=== PATIENT | male | born 1990 | race Native Hawaiian/Other Pacific Islander ===

== ENCOUNTER 2016-08-26 14:06 | Emergency (ER) | payer SELFPAY ==
[~2016-08-26] VITALS: Ht 185.4 cm; Wt 164.7 kg
[~2016-08-26 14:06] MED LIST: GLC500 PO; LEVO150T9 PO; ONDA4TAB10 SL
[2016-08-26 14:15] VITALS: TEMP 37; Ht 185.4 cm; Wt 164.7 kg
[2016-08-26] MEDS ORDERED: LEVO175T3 PO (14:26)
[2016-08-26] MEDS ORDERED: ONDANSETRON INJ 2 MG/ML 2 ML VIAL IV STA (14:35)
[2016-08-26] MEDS ORDERED: SODIUM CHLORIDE 0.9% 1000ML 1,000 ML IV STA (14:35)
[2016-08-26] MEDS ORDERED: MoRPHine SULFATE 4 MG/ML 1 ML CARP\\VIAL IV PRN (14:45)
[2016-08-26 15:24] LABS: BASO % 0.3 %; BASO ABS # 0.02 K/uL (0-0.2); COMPLETE YES; EOS % 2.5 %; HEMATOCRIT 37.7 % (42-52); IG% 0.3 %; LYMPH % 22.3 %; LYMPH ABS # 1.43 K/uL (1.2-3.4); MEAN CELL VOLUME 83.2 fL (80-100); MEAN CORPUSCULAR HEMOGLOBIN 27.8 pg (25-34); MEAN CORPUSCULAR HGB CONC 33.4 g/dl (32-36); MONO % 4.1 %; NEUT % 70.5 %; PLATELET COUNT 179 K/uL (130-400); RED BLOOD COUNT 4.53 M/uL (4.7-6.1); WHITE BLOOD COUNT 6.41 K/uL (4.8-10.8)
[2016-08-26 15:41] LABS: ALT/SGPT 55 U/L (12-78); BLOOD UREA NITROGEN 8 mg/dl (7-18); BUN/CREATININE RATIO 11.4 (10-20); CALCIUM 8.8 mg/dl (8.5-10.1); CARBON DIOXIDE 28 mmol/L (21-32); CHLORIDE 102 mmol/L (98-107); CREATININE 0.66 mg/dl (0.60-1.40); GLUCOSE 151 mg/dl (70-99); POTASSIUM 3.1 mmol/L (3.5-5.1); SODIUM 141 mmol/L (136-145)
[2016-08-26 15:44] LABS: ALKALINE PHOSPHATASE 116 U/L (45-117); AST/SGOT 40 U/L (15-37)
[2016-08-26] MEDS ORDERED: OPTIRAY 320 IV PRN (15:45)
[2016-08-26 15:59] LABS: URINE APPEARANCE CLEAR (CLEAR); URINE BILIRUBIN NEG (NEG); URINE COLOR YELLOW; URINE NITRITE NEG (NEG); URINE SPECIFIC GRAVITY 1.021 (1.000-1.030); UROBILINOGEN NEG (NEG)
[2016-08-26 16:07] LABS: MANUAL MICROSCOPIC REQUIRED? NO; REVIEW REQ? NO
--- NOTE | 2016-08-26 17:57 | DIAGNOSTIC IMAGING REPORT ---
ABDOMEN AND PELVIS CT WITH IV AND ORAL CONTRAST CT DOSE: 2347.76 mGy.cm HISTORY: Generalized abdominal pain. TECHNIQUE: Multiaxial CT images of the abdomen and pelvis were performed following the use of intravenous and oral contrast. COMPARISON STUDY: Abdominal ultrasound 02/26/2006. FINDINGS: Mild dependent changes seen within the lung bases posteriorly. No pneumoperitoneum. No pneumatosis. No fractures within the visualized osseous structures. Minimal pericardial fluid anteriorly. The liver, gallbladder, adrenal glands, pancreas, and kidneys are unremarkable. Normal bladder. No hydronephrosis. The spleen is enlarged measuring 18 cm in length. Questionable minimal fasting at the pancreatic tail appears be due to the normal surrounding vessels rather than inflammatory change. No retroperitoneal lymphadenopathy. Subcentimeter mesenteric lymph nodes do not meet CT criteria for pathologic involvement. Prominent left lymph node measures a normal fatty hilum is also likely benign. No bowel wall thickening or obstruction. Normal appendix. IMPRESSION: 1. No bowel wall thickening or obstruction. 2. Splenomegaly measuring 18 cm in length. 3. Normal appendix. Electronically signed by: Gopal Sullivan M.D. 08/26/2016 5:55 PM Dictated Date/Time: 08/26/2016 5:45 PM
[2016-08-26] MEDS ORDERED: ONDA4TAB46 PO (18:06)
[2016-08-26 18:18] VITALS: BP 125/77; PULSE 97; O2SAT 94
--- NOTE | 2016-08-26 18:38 | EMERGENCY ROOM VISIT NOTE ---
ED Visit Note First contact with patient: 14:20 Chief Complaint: Abdominal pain, vomiting and diarrhea. History of Present Illness: Mr. Brown is a 25 year-old white male who ambulates into the ED complaining of epigastric and right lower quadrant abdominal painassociated with nausea, vomiting and diarrhea.. Historically patient reports acute gastroenteritis last year. Patient reports ongoing epigastric and left lower quadrant abdominal pain that started mildly of quadrant abdominal pain that started 8 days ago. Since that time his symptoms have been constant but has waxed and waned in intensity. He describes his abdominal pain as a sharp sensation. He currently rates his discomfort 4/10. His pain is nonradiating. He has not identified any aggravating or alleviating factors related to the pain. He reports he has been using ibuprofen but no relief of his discomfort. Associated with his discomfort he reports he has been nauseated and has been vomiting a couple times a day for the last few days and he has been having back and leg cramps at night and multiple episodes of watery diarrhea; the last 24 hours he reports he' s had 2 episodes of diarrhea. Additionally he reports intermittently he feels like he has fevers but has not checked; he reports feeling hot and then chills but no diaphoresis. Patient denies skin eruptions, skin color changes, upper respiratory tract symptoms, shortness of breath, chest pain, constipation, rectal bleeding, black/ tarry stools, urinary symptoms, hematuria, back/flank pain, close contacts with similar symptoms, recent antibiotic use and recent travel outside the [place]. Review of Systems: As noted above in history of present illness. All body systems were reviewed and found to be negative as noted above. Past Medical History:as previously noted, diabetes, hypothyroidism. Current Medications: Metformin, levothyroxine. Allergies to Medications:patient denies. Social History:patient is currently employed; he feels safe in his home environment; he denies tobacco and alcohol use. Physical Examination: Vital Signs: Date Time Temp Pulse Resp B/P Pulse Ox O2 Delivery O2 Flow Rate FiO2 08/26/16 18:18 97 18 125/77 94 08/26/16 17:32 94 16 134/76 96 08/26/16 16:15 94 16 126/76 96 08/26/16 14:15 37.0 105 19 161/90 96 Room Air GENERAL: 25-year-old male in mild distress due to pain, nontoxic-appearing, afebrile and hemodynamically stable. NEUROLOGICAL: Awake, alert and oriented to person, place and time. Answering questions appropriately and following commands. Normal gait. Good hand eye coordination. SKIN: Warm, dry and pink. No soft tissue eruptions or trauma noted. HEENT: Atraumatic and normocephalic. PERRLA. Sclera white and conjunctiva pink. Oral cavity moist and pink. Pharynx is nonerythematous or edematous. Speech normal. No lymphadenopathy. Trachea midline. No jugular venous distention. BACK: No tenderness over the bony spine or palpable pain/spasm in the paraspinous musculature. No CVA tenderness. THORAX: Lungs sounds are clear to auscultation and equal bilaterally with symmetrical chest wall. No wheezing, rales or rhonchi. No crepitus, tenderness , subcutaneous air or deformities noted. HEART: Regular rate and rhythm. No gallops, rubs or murmurs are appreciated. ABDOMEN: Morbidly obese and soft with mild tenderness in the epigastrium and left lower quadrant. Decreased bowel sounds in all quadrants. No guarding, rigidity or organomegaly. EXTREMITIES: Moves all extremities well on command and with purpose. All distal neurovascular statuses are intact and equal bilaterally. ED Course: Patient is assessed as noted above. Laboratory Testing: Test 08/26/16 15:05 Range/Units White Blood Count 6.41 4.8-10.8 K/uL Red Blood Count 4.53 4.7-6.1 M/uL Hemoglobin 12.6 14.0-18.0 g/dL Hematocrit 37.7 42-52 % Mean Corpuscular Volume 83.2 80-100 fL Mean Corpuscular Hemoglobin 27.8 25-34 pg Mean Corpuscular Hemoglobin Concent 33.4 32-36 g/dl Platelet Count 179 130-400 K/uL Mean Platelet Volume 11.0 7.4-10.4 fL Neutrophils (%) (Auto) 70.5 % Lymphocytes (%) (Auto) 22.3 % Monocytes (%) (Auto) 4.1 % Eosinophils (%) (Auto) 2.5 % Basophils (%) (Auto) 0.3 % Neutrophils # (Auto) 4.52 1.4-6.5 K/uL Lymphocytes # (Auto) 1.43 1.2-3.4 K/uL Monocytes # (Auto) 0.26 0.11-0.59 K/uL Eosinophils # (Auto) 0.16 0-0.5 K/uL Basophils # (Auto) 0.02 0-0.2 K/uL RDW Standard Deviation 46.8 36.4-46.3 fL RDW Coefficient of Variation 15.3 11.5-14.5 % Immature Granulocyte % (Auto) 0.3 % Immature Granulocyte # (Auto) 0.02 0.00-0.02 K/uL Urine Color YELLOW Urine Appearance CLEAR CLEAR Urine pH 6.0 4.5-7.5 Urine Specific [place] 1.021 1.000-1.030 Urine Protein NEG NEG Urine Glucose (UA) NEG NEG Urine Ketones NEG NEG Urine Occult Blood NEG NEG Urine Nitrite NEG NEG Urine Bilirubin NEG NEG Urine Urobilinogen NEG NEG Urine Leukocyte Esterase NEG NEG Sodium Level 141 136-145 mmol/L Potassium Level 3.1 3.5-5.1 mmol/L Chloride Level 102 98-107 mmol/L Carbon Dioxide Level 28 21-32 mmol/L Anion Gap 11.0 3-11 mmol/L Blood Urea Nitrogen 8 7-18 mg/dl Creatinine 0.66 0.60-1.40 mg/dl Est Creatinine Clear Calc Drug Dose 273.0 ml/min Estimated GFR () > 150.0 Estimated GFR (Non- 133.4 BUN/Creatinine Ratio 11.4 10-20 Random Glucose 151 70-99 mg/dl Calcium Level 8.8 8.5-10.1 mg/dl Total Bilirubin 0.4 0.2-1 mg/dl Direct Bilirubin 0.1 0-0.2 mg/dl Aspartate Amino Transf (AST/SGOT) 40 15-37 U/L Alanine Aminotransferase (ALT/SGPT) 55 12-78 U/L Alkaline Phosphatase 116 45-117 U/L Total Protein 7.6 6.4-8.2 gm/dl Albumin 3.4 3.4-5.0 gm/dl Lipase 158 73-393 U/L Contrast abdominal/pelvic CT: Was reviewed by myself and read by the radiologist shows no bowel wall thickening or signs of obstruction, normal- appearing appendix, no pneumoperitoneum, no pneumatosis, normal-appearing liver , gallbladder, adrenal glands, pancreas, kidneys and kidneys, enlarged spleen, no retroperitoneal lymphadenopathy. Patient was hydrated with normal saline and received 4 mg of morphine IV for pain and 4 mg of Zofran IV for nausea. Patient was unable to provide a stool sample for study. Patient was reassessed multiple times during his stay in the emergency department. Patient's case was reviewed with Dr. Hummel; we agreed on diagnostic approach, treatment, disposition and plan. Patient was educated about tonight's findings and instructed on his treatment plan; he verbalizes understanding and agreement with this plan. Clinical Impression: Acute gastroenteritis. Decision-Making: Initially my differential diagnosis I considered gastroenteritis, colitis, C. difficile, viral diarrhea, bowel obstruction and other causes. Disposition: Patient discharged home in stable condition; prior to departure he was reassessed and subjectively reported that he was pain and symptom-free. Plan: Patient was encouraged alternate ibuprofen and acetaminophen as needed for pain every 3 hours. Patient was prescribed Zofran 4 mg every 6 hours as needed for nausea/vomiting. Patient was encouraged to use [id number] Imodium for diarrhea; he was instructed to follow the packaging directions. Patient was encouraged use a bland diet and increase clear fluids. Patient was encouraged to follow-up with his primary care provider for recheck in 3-5 days. Patient was encouraged return to the ED for worsening/uncontrolled pain, return of fevers, uncontrolled vomiting/diarrhea, bloody vomitus/diarrhea or any new/ concerning symptoms.
== END 2016-08-26 18:19 | disposition home or self-care (01) ==
LOC: C.EDB 14:07
DX: K52.9 Noninfective gastroenteritis and colitis, unspecified (principal)

== ENCOUNTER 2016-10-24 20:05 | Emergency (ER) | payer OTHER ==
[~2016-10-24] VITALS: Ht 185.4 cm; Wt 164.3 kg
[~2016-10-24 20:05] MED LIST changes: -LEVO150T9 PO; +LEVO175T3 PO; -ONDA4TAB10 SL; +ONDA4TAB46 PO
[2016-10-24 20:12] VITALS: TEMP 37; Ht 185.4 cm; Wt 164.3 kg
--- NOTE | 2016-10-24 21:36 | DIAGNOSTIC IMAGING REPORT ---
LEFT ANKLE MIN 3 VIEWS ROUTINE CLINICAL HISTORY: left ankle pain and swelling COMPARISON: None. DISCUSSION: The bones and joint spaces appear intact. There is no evidence of fracture, dislocation or bony disease. Mild generalized soft tissue edema. Small heel spur. IMPRESSION: Soft tissue edema. No acute bony abnormality. Small heel spur. Electronically signed by: Rex Johnson M.D. 10/24/2016 9:35 PM Dictated Date/Time: 10/24/2016 9:34 PM
--- NOTE | 2016-10-24 22:54 | DIAGNOSTIC IMAGING REPORT ---
Venous Doppler left leg LEFT VENOUS DOPP LOWER EXT UNILAT CLINICAL HISTORY: left ankle swelling ?2 weeks pain. Edema. TECHNIQUE: Venous Doppler COMPARISON STUDY: None FINDINGS: Normal study IMPRESSION: Normal study Electronically signed by: Rex Johnson M.D. 10/24/2016 10:52 PM Dictated Date/Time: 10/24/2016 10:52 PM
[2016-10-24 23:07] VITALS: BP 180/90; PULSE 88; O2SAT 97
--- NOTE | 2016-10-24 23:09 | EMERGENCY ROOM VISIT NOTE ---
ED Visit Note First contact with patient: 20:17 CHIEF COMPLAINT: Left ankle swelling 2 weeks HISTORY OF PRESENT ILLNESS: Patient is a morbidly obese 25-year-old male who presents emergency department for evaluation of left ankle pain and swelling 2 weeks. He states that his fianc noted that his ankle looked swollen. The patient reports that he develops lower extremity swelling particularly after he works long shifts at a [email or web address]. He states that occasionally the left ankle becomes a little bit more swollen and painful. He notes increased symptoms with walking. He occasionally notes some tightness in the left calf. He denies any trauma or injury to the left leg that would explain the onset of his symptoms. He denies any chest pain, palpitations or shortness of breath. He denies any history of gout, does not note any other real significant joint pains. He rates his discomfort a 3/10. He denies experiencing any symptoms in the right leg presently. He denies unusual activity which may have strained a muscle recently. There has not been a long period of immobilization or long car or plane ride recently. There is no history of blood clots in the veins of the legs. REVIEW OF SYSTEMS: Review of systems as per HPI. All other systems reviewed were negative. 10 systems reviewed. PMH: Electronic medical records are reviewed and summarized as above/below. See Problem List. SOCIAL HISTORY: Patient lives at home. Employed. Does not smoke. PHYSICAL EXAM: Vital Signs: Reviewed Nurse's notes. CONSTITUTIONAL: Patient is an obese 25-year-old male who is awake and alert and in no acute distress. HEART: Regular rate and rhythm without murmurs, ectopy, gallops, or rubs. LUNGS: Clear to auscultation and breath sounds equal, no wheezes, rales, or rhonchi. NEUROLOGICAL: Alert oriented, coherent. PERRL, EOMs full, gait normal. EXTREMITIES: Examination of the lower extremities bilaterally show trace pitting edema in the ankles and the anterior shins bilaterally. There is no erythema, increased warmth or signs of infection. There are no palpable cords. Calves are soft and nontender bilaterally. No cyanosis noted. No palpable knee or ankle joint discomfort bilaterally. Pulses equal bilaterally. Sensation light touch is intact. There is no lymphangitic streaking. EMERGENCY DEPARTMENT COURSE: X-rays of the left ankle noted slight soft tissue swelling with no evidence for acute bony abnormality. Ultrasound of the left lower extremity did not demonstrate any DVT. The patient has had nonspecific left ankle pain and swelling over the last couple of weeks. Differential diagnoses entertained include sprain, gout, septic joint, DVT, superficial thrombophlebitis, tendinitis, dependent edema, among others. The patient was reassured. He is encouraged to follow-up with his primary care provider if his symptoms persist. LEFT ANKLE MIN 3 VIEWS ROUTINE CLINICAL HISTORY: left ankle pain and swelling COMPARISON: None. DISCUSSION: The bones and joint spaces appear intact. There is no evidence of fracture, dislocation or bony disease. Mild generalized soft tissue edema. Small heel spur. IMPRESSION: Soft tissue edema. No acute bony abnormality. Small heel spur. Venous Doppler left leg LEFT VENOUS DOPP LOWER EXT UNILAT CLINICAL HISTORY: left ankle swelling ?2 weeks pain. Edema. TECHNIQUE: Venous Doppler COMPARISON STUDY: None FINDINGS: Normal study IMPRESSION: Normal study Problem List Medical Problems: (1) Acute bronchitis Status: Resolved (2) Acute gastroenteritis Status: Resolved (3) Acute gastroenteritis Status: Resolved (4) Anxiety Status: Chronic (5) Depression Status: Chronic (6) Diabetes mellitus, new onset Status: Resolved (7) Diarrhea Status: Resolved (8) Elevated transaminase level Status: Resolved (9) Gastroenteritis Status: Resolved (10) Hypertension Status: Resolved (11) Hypothyroidism Status: Chronic (12) IBS (irritable bowel syndrome) Status: Chronic (13) Low back pain Status: Chronic (14) Morbid Obesity Status: Chronic (15) Nausea Status: Resolved (16) Nausea vomiting and diarrhea Status: Resolved (17) Sleep apnea Status: Chronic (18) Unspecified sleep apnea Status: Resolved (19) Upper respiratory infection Status: Resolved (20) Viral URI Status: Resolved (21) Vomiting Status: Resolved Current/Historical Medications Scheduled Metformin HCl (Metformin HCl), 500 MG PO BID Allergies Coded Allergies: No Known Allergies (Unverified , 10/24/16) Vital Signs Date Time Temp Pulse Resp B/P Pulse Ox O2 Delivery O2 Flow Rate FiO2 10/24/16 23:07 88 18 180/90 97 Room Air 10/24/16 20:12 37.0 99 20 191/98 97 Room Air Departure Information Impression Primary Impression: Left ankle pain Additional Impression: Lower extremity edema Referrals James Moseley M.D. ([facility]) (PCP) Patient Instructions [facility] Additional Instructions Ibuprofen(Motrin, Advil) may be used for fever or pain. Use 600mg every six hours as needed. Take with food. Avoid using more than 2400mg in a 24 hour period. Do not use 2400mg per day for more than three consecutive days without physician direction. Prolonged inappropriate use can lead to stomach upset or ulcers. This medication can be taken if you need to drive, work, or perform activities which may be dangerous when taking narcotic pain medication. (AND/OR) Acetaminophen(Tylenol) may be used for fever or pain. Use 1000mg every six hours as needed. Avoid using more than 3000mg in a 24 hour period. This medication can be taken if you need to drive, work, or perform activities which may be dangerous when taking narcotic pain medication. Ice compresses to the ankle as needed for pain and swelling. Rest and elevate the legs when the ankle becomes painful and legs become swollen. Continue current medications. Return to the ER immediately for any numbness, tingling, severe pain, extreme swelling in the extremity or as needed. Follow up with your family physician if symptoms persist. Problem Qualifiers
== END 2016-10-24 23:30 | disposition home or self-care (01) ==
LOC: C.EDB 20:05 → C.EDD 23:30
DX: M25.572 Pain in left ankle and joints of left foot (principal); R60.0 Localized edema; F41.9 Anxiety disorder, unspecified; F32.9 Major depressive disorder, single episode, unspecified; E03.9 Hypothyroidism, unspecified; K58.9 Irritable bowel syndrome, unspecified; E66.01 Morbid (severe) obesity due to excess calories; G47.30 Sleep apnea, unspecified; Z68.42 Body mass index [BMI] 45.0-49.9, adult

== ENCOUNTER 2017-02-12 18:12 | Emergency (ER) | payer OTHER ==
[~2017-02-12] VITALS: Ht 185.4 cm; Wt 160.5 kg
[~2017-02-12 18:12] MED LIST changes: -LEVO175T3 PO; -ONDA4TAB46 PO
[2017-02-12 18:20] VITALS: Ht 185.4 cm; Wt 160.5 kg
[2017-02-12] MEDS ORDERED: IBUPROFEN 800 MG TAB PO STA (19:16)
[2017-02-12] MEDS ORDERED: IBUP-1050 PO (19:19)
--- NOTE | 2017-02-12 19:31 | DIAGNOSTIC IMAGING REPORT ---
RIGHT KNEE 2 VIEWS CLINICAL HISTORY: Right knee pain. FINDINGS: AP and crosstable lateral views of the right knee are obtained. No prior studies are available for comparison at the time of dictation. The skeletal structures are well mineralized. No fracture is seen. The joint spaces of the knee are preserved. There is no joint effusion. The overlying soft tissues are within normal limits. IMPRESSION: No acute bony abnormality is seen in the right knee. Electronically signed by: Joselito Hunt M.D. 02/12/2017 7:30 PM Dictated Date/Time: 02/12/2017 7:29 PM
--- NOTE | 2017-02-12 20:01 | EMERGENCY ROOM VISIT NOTE ---
ED Visit Note First contact with patient: 18:49 CHIEF COMPLAINT: knee pain HISTORY OF PRESENT ILLNESS: This 26-year-old male patient presents to the emergency department after sustaining an injury to the right knee 2-3 days ago. Patient states he has been doing a lot of moving furniture, thinks he may have twisted the knee but is unsure. He states he has pain with certain twisting motions on the inside of his knee and with bending or sustained walking. The patient denies any other injuries besides their knee. The patient denies swelling or bruising. They rate the pain as aching and 4/10. The patient states they are able to walk on it. No numbness or tingling. No previous injuries to this knee. No ankle, foot or hip pain. REVIEW OF SYSTEMS: A 6 system review of systems was completed with positives and pertinent negatives listed in the HPI. ALLERGIES: See chart MEDICATIONS: See chart PMH: See chart SOCIAL HISTORY: See chart PHYSICAL EXAM: Vital Signs: Reviewed Nurse's notes, vital signs stable. GENERAL : Pleasant and cooperative, no acute distress, but appears in pain, well- developed, well-nourished. MENTAL STATUS: Alert, oriented to person place and time, and cooperative. MUSCULOSKELETAL: The right knee is not swollen. There is no ecchymosis. There is no discernible joint effusion present. The patient is tender along the medial knee and with stress of the medial collateral ligament. There is no joint line tenderness. The patella does not subluxate. Range of motion is normal. Strength of the quads and hamstrings is 5/5. Mckayla 's and Anterior Drawer tests are negative. The foot and toes are warm and well- perfused. Dorsalis pedis pulse 2+. Sensation to pain and light touch is intact. Capillary refill less than 2 seconds. IMAGING: RIGHT KNEE 2 VIEWS CLINICAL HISTORY: Right knee pain. FINDINGS: AP and crosstable lateral views of the right knee are obtained. No prior studies are available for comparison at the time of dictation. The skeletal structures are well mineralized. No fracture is seen. The joint spaces of the knee are preserved. There is no joint effusion. The overlying soft tissues are within normal limits. IMPRESSION: No acute bony abnormality is seen in the right knee. EMERGENCY DEPARTMENT COURSE: I examined the patient. X-rays of the right knee were reviewed by myself and read by radiology and reveal no acute bony abnormalities. The patient was placed in a knee immobilizer under my direction and the position was satisfactory. The patient was instructed on the use of crutches. The patient was discharged home in good condition. Problem List Medical Problems: (1) Acute bronchitis Status: Resolved (2) Acute gastroenteritis Status: Resolved (3) Acute gastroenteritis Status: Resolved (4) Anxiety Status: Chronic (5) Depression Status: Chronic (6) Diabetes mellitus, new onset Status: Resolved (7) Diarrhea Status: Resolved (8) Elevated transaminase level Status: Resolved (9) Gastroenteritis Status: Resolved (10) Hypertension Status: Resolved (11) Hypothyroidism Status: Chronic (12) IBS (irritable bowel syndrome) Status: Chronic (13) Low back pain Status: Chronic (14) Morbid Obesity Status: Chronic (15) Nausea Status: Resolved (16) Nausea vomiting and diarrhea Status: Resolved (17) Sleep apnea Status: Chronic (18) Unspecified sleep apnea Status: Resolved (19) Upper respiratory infection Status: Resolved (20) Viral URI Status: Resolved (21) Vomiting Status: Resolved Current/Historical Medications Scheduled Ibuprofen (Advil), 400 MG PO prn ud Allergies Coded Allergies: No Known Allergies (Unverified , 10/24/16) Vital Signs Date Time Temp Pulse Resp B/P (MAP) Pulse Ox O2 Delivery O2 Flow Rate FiO2 02/12/17 20:14 36.7 102 20 141/78 95 02/12/17 20:13 102 20 141/78 95 Room Air 02/12/17 18:20 36.7 112 20 153/87 95 Room Air Medications Administered Medications (Trade) Dose Ordered Sig/Giovanny Route Start Time Stop Time Status Last Admin Dose Admin Ibuprofen (Motrin Tab) 800 mg NOW STAT PO 02/12/17 19:16 02/12/17 19:18 DC 02/12/17 19:52 800 MG Departure Information Impression Primary Impression: Right knee sprain Dispostion Home / Self-Care Condition GOOD Referrals James Moseley M.D.([facility]) (PCP) Karthik Ken D.O. Patient Instructions ED Sprain Knee, [facility] Additional Instructions Ice and elevate the knee for swelling and pain. Wear knee immobilizer when up and about. Use crutches - minimal weight on foot. Ibuprofen 600 mg and Tylenol 1000 mg every 6-8 hrs for pain. Follow-up with Orthopedics for further evaluation and treatment - call for appointment in the next week. Work Instructions Return To Work: after follow-up Additional Work Instructions: No work until cleared by orthopedics Problem Qualifiers Primary Impression: Right knee sprain Encounter type: initial encounter Involved ligament of knee: medial collateral ligament Qualified Codes: S83.411A - Sprain of medial collateral ligament of right knee, initial encounter
[2017-02-12 20:14] VITALS: BP 141/78; PULSE 102; TEMP 36.7; O2SAT 95
== END 2017-02-12 20:19 | disposition home or self-care (01) ==
LOC: C.EDB 18:13 → C.EDD 20:19
DX: S83.91XA Sprain of unspecified site of right knee, initial encounter (principal); X58.XXXA Exposure to other specified factors, initial encounter; I10 Essential (primary) hypertension; E11.9 Type 2 diabetes mellitus without complications; E03.9 Hypothyroidism, unspecified; F41.9 Anxiety disorder, unspecified; F32.9 Major depressive disorder, single episode, unspecified; K58.9 Irritable bowel syndrome, unspecified; G47.30 Sleep apnea, unspecified; Z86.19 Personal history of other infectious and parasitic diseases

== ENCOUNTER → 2017-03-29 | Outpatient (CLI) | payer OTHER ==
[~2017-03-29] MED LIST changes: -GLC500 PO; +IBUP-1050 PO
--- NOTE | 2017-03-29 08:28 | DIAGNOSTIC IMAGING REPORT ---
RIGHT LOWER EXT JOINT WITHOUT CLINICAL HISTORY: 26 years-old Male presents with medial right-sided knee pain for approximately one month. No reported injury. COMPARISON: Right knee radiographs 02/12/2017. TECHNIQUE: Multiplanar, multisequence MRI of the right knee was performed without intravenous contrast. FINDINGS: MENISCI: There is an obliquely oriented area of linear increased T2 signal involving the posterior junction and body medial meniscus, nicely seen on image 19 of the sagittal PD series and image 18 of the coronal PD series compatible with horizontal undersurface tear without displaced fragment or para meniscal cyst identified. There is fraying and blunting of the free edge lateral meniscal body, best seen on image 21 of the coronal PD series suggesting tear without displaced fragment or para meniscal cyst identified. CRUCIATE LIGAMENTS: The anterior and posterior cruciate ligaments are normal in signal, morphology and course. COLLATERAL LIGAMENTS: The popliteus tendon, biceps femoris tendon, fibular collateral ligament and iliotibial band are intact. There is thickening of the proximal and mid fibers MCL with trace superficial and deep edema as well as minimal intrasubstance increased linear T2 signal, nicely seen on images 17 and 18 of the coronal PD series. No high-grade or complete tear identified. EXTENSOR MECHANISM: There is redundancy of the patellar tendon with thickened proximal fibers demonstrating mildly increased T2 signal suggesting mild tendinosis without definite tear identified. Quadriceps tendon is intact. The medial and lateral patellar retinacula are intact. KNEE JOINT: There is no large joint effusion. There is no focal cartilage or osteochondral abnormality. The tibial tuberosity to trochlear groove interval is elongated, 2.2 cm with lateral tilt of the patella within the trochlear groove. BONE MARROW: The bone marrow signal is age appropriate. No fracture, marrow edema, or marrow replacing process. Scattered bone islands are noted within the distal femur. SOFT TISSUES: The periarticular soft tissues are within normal limits with trace Bautista's cyst. IMPRESSION: 1. Horizontal undersurface tear involves the posterior junction and body medial meniscus. 2. Fraying and blunting of the free edge lateral meniscal body suggests additional meniscal tear. 3. Grade 2 injury of the MCL. 4. Elongation of the tibial tuberosity to trochlear groove interval with lateral tilt of the patella within the trochlear groove suggests patellar tracking abnormality. Correlate with clinical presentation and patient history. The above report was generated using voice recognition software. It may contain grammatical, syntax or spelling errors. Electronically signed by: Dav Alexandre M.D. 03/29/2017 8:27 AM Dictated Date/Time: 03/29/2017 8:16 AM
== END | disposition home or self-care (01) ==
LOC: C.MRI 07:27
PROVIDERS: ATTEND Orthopaedic Surgery
DX: S83.241A Other tear of medial meniscus, current injury, right knee, initial encounter (principal); S83.411A Sprain of medial collateral ligament of right knee, initial encounter; X58.XXXA Exposure to other specified factors, initial encounter

== ENCOUNTER 2017-09-24 08:29 | Emergency (ER) | payer OTHER ==
[~2017-09-24] VITALS: Ht 185.4 cm; Wt 157.5 kg
[2017-09-24 08:39] VITALS: TEMP 36.7; Ht 185.4 cm; Wt 157.5 kg
[2017-09-24] MEDS ORDERED: NORT10CA PO (09:35)
[2017-09-24] MEDS ORDERED: MAGN400T6 PO (09:35)
[2017-09-24] MEDS ORDERED: RIBO1TAB4 PO (09:35)
[2017-09-24 10:01] VITALS: BP 137/83; PULSE 72; O2SAT 97
--- NOTE | 2017-09-24 10:20 | DIAGNOSTIC IMAGING REPORT ---
L-SPINE MIN 4 VIEWS ROUTINE HISTORY: 26 years-old Male LBP x 2d acute low back pain for 2 days COMPARISON: CT abdomen and pelvis 08/26/2016 TECHNIQUE: 5 views of the lumbar spine FINDINGS: There are 5 nonrib-bearing lumbar type vertebral segments present. There is no acute fracture, subluxation, significant degenerative changes, spondylolysis or spondylolisthesis. Imaged soft tissues are unremarkable. IMPRESSION: 1. No acute fracture or subluxation. 2. No significant degenerative changes. The above report was generated using voice recognition software. It may contain grammatical, syntax or spelling errors. Electronically signed by: Dav Alexandre M.D. 09/24/2017 10:18 AM Dictated Date/Time: 09/24/2017 10:15 AM
--- NOTE | 2017-09-24 11:39 | EMERGENCY ROOM VISIT NOTE ---
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 The patient was assisting a resident who was walking when the resident fell. The patient did not notice any significant or abrupt onset of pain. He reports that the back has generally been stiff and tight since then, and rates his discomfort a 5 out of 10. The patient has not taken any analgesics, or applied ice or heat to the back. The pain does not radiate into the upper back, buttocks or legs. He denies bladder or bowel incontinence, saddle anesthesias or lower extremity weakness. Review of Systems 10 system review was performed and was negative except for pertinent positives and negatives as indicated in history of present illness Past Medical/Surgical History Medical Problems: (1) Acute bronchitis (2) Acute gastroenteritis (3) Acute gastroenteritis (4) Anxiety (5) Depression (6) Diabetes mellitus, new onset (7) Diarrhea (8) Elevated transaminase level (9) Gastroenteritis (10) Hypertension (11) Hypothyroidism (12) IBS (irritable bowel syndrome) (13) Low back pain (14) Morbid Obesity (15) Nausea (16) Nausea vomiting and diarrhea (17) Sleep apnea (18) Unspecified sleep apnea (19) Upper respiratory infection (20) Viral URI (21) Vomiting Family History Hypertension Social History Smoking Status: Former Smoker Alcohol Use: none Drug Use: none Marital Status: single Housing Status: lives with family Occupation Status: employed Current/Historical Medications Scheduled Magnesium Oxide (Mag-Ox), 400 MG PO HS Nortriptyline Hcl (Pamelor), 2 CAP PO HS Riboflavin (Riboflavin), 400 MG PO HS Physical Exam Vital Signs Date Time Temp Pulse Resp B/P (MAP) Pulse Ox O2 Delivery O2 Flow Rate FiO2 09/24/17 10:01 72 18 137/83 97 Room Air 09/24/17 08:39 36.7 102 20 144/87 96 Room Air Physical Exam CONSTITUTIONAL: Healthy and well nourished. Alert and oriented X 3 with positive affect. Patient does not appear in any acute distress. HEENT: Normocephalic, atraumatic. Pupils equal, round and reactive. NECK: Full active range of motion without discomfort. RESPIRATORY: Clear to auscultation bilaterally with no wheezing, crackles, rhonchi or stridor. CARDIOVASCULAR: Regular rate and rhythm with no murmurs, rubs or gallops. GASTROINTESTINAL: Bowel sounds present in all quadrants. Soft and nontender to palpation. MUSCULOSKELETAL: Examination shows mild tenderness to palpation through the right lower lumbar paraspinous muscle. No obvious muscle spasm. He has no focal tenderness through the central lumbar spine or SI joints. His able to flex, extend, rotate and lateral bend with minimal discomfort. Negative logroll. Negative sitting straight leg raise. Ankle plantar/dorsiflexion strength is 5 out of 5 and symmetric bilaterally. Pedal pulses are intact. INTEGUMENTARY: No rash or other significant dermatologic conditions noted. NEUROLOGIC: No focal neurologic deficits noted. Lower extremities are sensory intact with deep tendon reflexes 2+ and symmetric bilaterally. Medical Decision & Procedures ER Provider Diagnostic Interpretation: My interpretation of lumbar spine x-rays does not show any obvious fractures, dislocation or spondylolisthesis. Radiologist report is as follows: L-SPINE MIN 4 VIEWS ROUTINE HISTORY: 26 years-old Male LBP x 2d acute low back pain for 2 days COMPARISON: CT abdomen and pelvis 08/26/2016 TECHNIQUE: 5 views of the lumbar spine FINDINGS: There are 5 nonrib-bearing lumbar type vertebral segments present. There is no acute fracture, subluxation, significant degenerative changes, spondylolysis or spondylolisthesis. Imaged soft tissues are unremarkable. IMPRESSION: 1. No acute fracture or subluxation. 2. No significant degenerative changes. ED Course Patient history and physical exam were performed. Nurse's notes were reviewed. Vital signs were reviewed and were normal. The patient refused any analgesics on initial exam. X-rays of the lumbar spine were normal. The patient was advised that he likely has a lumbar strain. He was encouraged to intermittently apply heat to the back. Ibuprofen and Tylenol in alternating fashion as needed for pain. The patient was given work restrictions for lifting no more than 20 pounds for the next 5 days. He was instructed to follow -up with his Worker's Compensation physician as needed with any persistent pain. Patient voiced understanding of all discharge instructions, and was happy with plan of care. It is noted from triage that the patient was complaining of some left shoulder discomfort as well. The patient was advised that he would have to sign in on a different account so as to separate this evaluation from his work-related injury. The patient reports that he would follow-up with his PCP as needed with any persistent left shoulder pain. Medical Decision Blood Pressure Screening Patient's blood pressure: Normal blood pressure Impression Primary Impression: Strain of lumbar region Additional Impression: Work related injury Departure Information Referrals James Moseley M.D.([facility]) (PCP) Patient Instructions [facility] Problem Qualifiers Primary Impression: Strain of lumbar region Encounter type: initial encounter Qualified Codes: S39.012A - Strain of muscle, fascia and tendon of lower back, initial encounter
== END 2017-09-24 11:06 | disposition home or self-care (01) ==
LOC: C.EDB 08:31
DX: S39.012A Strain of muscle, fascia and tendon of lower back, initial encounter (principal); X50.9XXA Other and unspecified overexertion or strenuous movements or postures, initial encounter; Y99.0 Civilian activity done for income or pay; F32.9 Major depressive disorder, single episode, unspecified; F41.9 Anxiety disorder, unspecified; E11.9 Type 2 diabetes mellitus without complications; I10 Essential (primary) hypertension; E03.9 Hypothyroidism, unspecified; K58.9 Irritable bowel syndrome, unspecified; E66.01 Morbid (severe) obesity due to excess calories; G47.30 Sleep apnea, unspecified; Z87.891 Personal history of nicotine dependence; Z82.49 Family history of ischemic heart disease and other diseases of the circulatory system

== ENCOUNTER 2020-06-16 13:47 | Observation (INO) ==
[2020-06-16] MEDS ORDERED: ALBUTEROL HFA 8 GM INHALER INH ONE (14:33)
--- NOTE | 2020-06-16 14:33 | Emergency Department Note ---
History of Present Illness General Chief complaint: Fever Stated complaint: FEVER, COUGH, POSITIVE COVID Time Seen by Provider: 06/16/20 13:55 History of Present Illness Maximum Pain Intensity: 6 This patient is a pleasant 29-year-old male who presents emergency department complaining of a productive cough that has been going on for approximately 1 week. He has become increasingly short of breath. He reports a chest pressure that is worse with coughing. The patient reports he was seen at [facility] and tested positive for Covid on 06/14. He was prescribed a medication. He is un sure of what the medication was. He denies any nausea or vomiting. No headache or neck pain reported. Home Medications Home Medications Medication Instructions Recorded Confirmed Type atorvastatin 10 mg PO DAILY 06/16/20 06/16/20 History clindamycin phosphate 1 applic TOPICAL BID PRN 06/16/20 06/16/20 History doxycycline monohydrate 100 mg PO BID 06/16/20 06/16/20 History lisinopril 10 mg PO DAILY 06/16/20 06/16/20 History metformin 1,000 mg PO BIDM 06/16/20 06/16/20 History pseudoephedrine-guaifenesin 1 tab PO Q12H PRN 06/16/20 06/16/20 History [Mucinex D Maximum Strength] Allergies Allergy/AdvReac Type Severity Reaction Status Date / Time No Known Allergies Allergy Verified 06/16/20 15:05 Past Med/Surg History Medical History Acute bronchitis Anxiety Diarrhea Dizziness Elevated TSH GERD (gastroesophageal reflux disease) Hypertension IBS (irritable bowel syndrome) Migraine Nausea Sleep apnea CPAP Transaminitis Unspecified sleep apnea Viral URI Vomiting Surgical History No history of previous surgery Family History Grandfather Family history of diabetes mellitus MATERNAL Other Gallbladder disease Heart disease Social History Smoking Status: Former smoker Second Hand Exposure: No; Do You Dip or Chew Tobacco: No; Tobacco Cessation Education Requested by Patient: No Hx Alcohol Use: No Hx Substance Use: No Preferred Language: Polish Communication Ability: Effective Tool Builder Required: No Beliefs That Will Affect Care: None and Baptism Baptism Beliefs: No Pork products Current Living Situation: Alone Current Living Situation Comment: LIVES WITH GIRLFRIEND Other Information That Helps Us Care for You: No Feels Safe at Home: Yes Safety Concerns: Feels Safe At This Time Assistive Devices: None Review of Systems A total of 10 systems reviewed and were otherwise negative Physical Exam Vital Signs Vital Signs - 24 hr 06/16/20 17:30 06/16/20 18:16 Pulse Rate [Left Finger] 95 H 118 H Respiratory Rate 22 22 Blood Pressure [Left Arm] 139/79 161/86 H Blood Pressure Mean [Left Arm] 99 111 Pulse Oximetry 95 95 Oxygen Delivery Method Room Air Constitutional WD/WN, vitals as above Eyes EOM intact bilaterally ENMT external ear and nose normal, oropharynx normal Neck trachea midline Respiratory Tachypneic. Decreased breath sounds at the bases. No wheezing noted. Cardiovascular Tachycardic. No murmur. Gastrointestinal (Abdomen) normal bowel sounds, soft, nontender, no hepatosplenomegaly Musculoskeletal no cyanosis or clubbing, extremities motor strength 5/5 Skin no rashes, warm and dry Neurologic Alert and oriented x3. No focal motor deficits. Psychiatric Acting appropriately Course Course Patient was seen and examined Vital signs including blood pressure were reviewed medications list was verified with patient Labs were obtained, and a saline lock was established Imaging was performed and reviewed The findings were discussed with the patient. We discussed disposition options. He was comfortable with possible inpatient management. Case was also discussed with supervising physician who is in agreement with my plan. Hospitalist was consulted. They will evaluate the patient for possible inpatient management. The patient remained stable in emergency department. Consultations Consultation #1: Dr. Larry Administered Medications Acetaminophen (Acetaminophen 325 Mg Tab) 650 mg PO Q4H PRN PRN Reason: pain/fever Stop: 07/16/20 19:15 Last Admin: 06/17/20 08:08 Dose: 650 mg Documented by: [id number] Admin: 06/17/20 01:58 Dose: 650 mg Documented by: [id number] Admin: 06/16/20 21:39 Dose: 650 mg Documented by: [id number] Atorvastatin Calcium (Atorvastatin 10 Mg Tab) 10 mg PO DAILY DAVID Stop: 07/17/20 08:59 Last Admin: 06/17/20 08:08 Dose: 10 mg Documented by: [id number] Doxycycline Hyclate (Doxycycline Hyclate 100 Mg Cap) 100 mg PO BID DAVID Stop: 07/16/20 20:59 Last Admin: 06/17/20 08:08 Dose: 100 mg Documented by: [id number] Admin: 06/16/20 21:26 Dose: 100 mg Documented by: [id number] Guaifenesin (Guaifenesin 600 Mg Tabcr) 600 mg PO BID PRN PRN Reason: CONGESTION Stop: 07/16/20 19:40 Last Admin: 06/17/20 08:08 Dose: 600 mg Documented by: [id number] Admin: 06/17/20 00:20 Dose: 600 mg Documented by: [id number] Heparin Sodium (Porcine) (Heparin Sod 5,000 Unit/0.5 Ml Vial) 7,500 units SQ Q8 H DAVID Stop: 07/17/20 01:59 Last Admin: 06/17/20 09:37 Dose: 7,500 units Documented by: [id number] Admin: 06/17/20 01:57 Dose: 7,500 units Documented by: [id number] Potassium Chloride/Sodium Chloride (Normal Saline W/20 Meq Kcl) 20 meq in 1,000 mls @ 125 mls/hr IV .Q8H DAVID Stop: 07/17/20 09:29 Last Infusion: 06/17/20 12:31 Dose: 125 mls/hr Documented by: [id number] Infusion: 06/17/20 11:52 Dose: 0 mls/hr Documented by: [id number] Infusion: 06/17/20 09:51 Dose: 125 mls/hr Documented by: [id number] Infusion: 06/17/20 09:19 Dose: 0 mls/hr Documented by: [id number] Admin: 06/17/20 09:19 Dose: 125 mls/hr Documented by: [id number] Insulin Aspart (Insulin Aspart 100 Units/Ml 3 Ml Pen) 0 units SC ACHS DAVID Stop: 07/16/20 20:59 Last Admin: 06/17/20 13:27 Dose: 6 units Documented by: [id number] Cosigned by: [id number] Admin: 06/17/20 09:37 Dose: 4 units Documented by: [id number] Cosigned by: [id number] Admin: 06/16/20 21:29 Dose: 1 units Documented by: [id number] Cosigned by: [id number] Lisinopril (Lisinopril 10 Mg Tab) 10 mg PO DAILY DAVID Stop: 07/17/20 08:59 Last Admin: 06/17/20 08:08 Dose: 10 mg Documented by: [id number] Miscellaneous (*Clindamycin 1 % Gel*Order Awaiting Action) 1 ea N/A QS DAVID Stop: 07/17/20 00:00 Last Admin: 06/17/20 15:02 Dose: Not Given Documented by: [id number] Admin: 06/17/20 08:08 Dose: Not Given Documented by: [id number] Admin: 06/17/20 00:21 Dose: Not Given Documented by: [id number] Ondansetron HCl (Ondansetron Inj 2 Mg/Ml 2 Ml Vial) 4 mg IV Q6H PRN PRN Reason: Nausea Stop: 07/16/20 19:15 Last Admin: 06/16/20 21:39 Dose: 4 mg Documented by: [id number] Pseudoephedrine HCl (Pseudoephedrine Hcl 30 Mg Tab) 60 mg PO BID PRN PRN Reason: CONGESTION Stop: 07/16/20 19:41 Last Admin: 06/17/20 00:18 Dose: 60 mg Documented by: [id number] Discontinued Medications Albuterol (Albuterol Hfa 8 Gm Inhaler) 4 puffs INH NOW ONE Stop: 06/16/20 14:34 Last Admin: 06/16/20 14:56 Dose: 4 puffs Documented by: [id number] Sodium Chloride (Nss 1000ml) 1,000 mls @ 999 mls/hr IV .Q1H1M ONE Stop: 06/16/20 17:21 Last Infusion: 06/16/20 19:55 Dose: 0 mls/hr Documented by: [id number] Admin: 06/16/20 18:13 Dose: 999 mls/hr Documented by: [id number] Sodium Chloride (Nss 1000ml) 500 mls @ 999 mls/hr IV .Q31M ONE Stop: 06/17/20 01:46 Last Admin: 06/17/20 01:40 Dose: Not Given Documented by: [id number] Sodium Chloride (Nss 1000ml) 1,000 mls @ 999 mls/hr IV .Q1H1M ONE Stop: 06/17/20 02:26 Last Infusion: 06/17/20 03:05 Dose: 0 mls/hr Documented by: [id number] Admin: 06/17/20 01:56 Dose: 999 mls/hr Documented by: [id number] Sodium Chloride (Nss) 500 mls @ 999 mls/hr IV .Q31M STA Stop: 06/17/20 06:58 Last Infusion: 06/17/20 07:18 Dose: 0 mls/hr Documented by: [id number] Admin: 06/17/20 06:36 Dose: 999 mls/hr Documented by: [id number] Sodium Chloride (Nss) 500 mls @ 999 mls/hr IV .Q31M DAVID Stop: 06/17/20 09:30 Last Infusion: 06/17/20 09:51 Dose: 0 mls/hr Documented by: [id number] Admin: 06/17/20 09:19 Dose: 999 mls/hr Documented by: [id number] Sodium Chloride (Nss) 500 mls @ 999 mls/hr IV .Q31M STA Stop: 06/17/20 12:05 Last Infusion: 06/17/20 12:31 Dose: 0 mls/hr Documented by: [id number] Admin: 06/17/20 11:52 Dose: 999 mls/hr Documented by: [id number] Levofloxacin/Dextrose (Levaquin/D5w) 750 mg in 150 mls @ 100 mls/hr IV Q24H [facility] Stop: 06/24/20 13:59 Last Admin: 06/17/20 14:40 Dose: Not Given Documented by: [id number] Ioversol (Optiray 320 125ml) 116 ml IV ONCE ONE Stop: 06/16/20 16:41 Last Admin: 06/16/20 16:40 Dose: 116 ml Documented by: [id number] Medical Decision Making Medical Records Attestation: I reviewed the patient's medical records. Home Medications Current Medication List: was personally reviewed by me Laboratory Data Attestation: I reviewed the patient's lab results. Result diagrams: 06/16/20 14:50 06/16/20 14:50 Lab Results 06/16/20 06/16/20 06/16/20 Range/Units 14:50 14:50 14:50 WBC 8.36 (4.8-10.8) K/uL RBC 4.67 L (4.7-6.1) M/uL Hgb 13.0 L (14.0-18.0) g/dL Hct 39.9 L (42-52) % MCV 85.4 (80-100) fL MCH 27.8 (25-34) pg MCHC 32.6 (32-36) g/dL RDW Std Deviation 47.9 H (36.4-46.3) fL RDW Coeff of Brittany 15.3 H (11.5-14.5) % Plt Count 126 L (130-400) K/uL MPV 10.8 H (7.4-10.4) fL Immature Gran % (Auto) 0.2 % Neut % (Auto) 83.7 % Lymph % (Auto) 10.9 % [place] % (Auto) 5.1 % Eos % (Auto) 0.0 % Baso % (Auto) 0.1 % Neut # (Auto) 6.99 H (1.4-6.5) K/uL Lymph # (Auto) 0.91 L (1.2-3.4) K/uL [place] # (Auto) 0.43 (0.11-0.59) K/uL Eos # (Auto) 0.00 (0-0.5) K/uL Baso # (Auto) 0.01 (0-0.2) K/uL Immature Gran # (Auto) 0.02 (0.00-0.02) K/uL PT 12.1 H (9.0-12.0) Seconds INR 1.2 H (0.9-1.1) Sodium 133 L (136-145) mmol/L Potassium 3.6 (3.5-5.1) mmol/L Chloride 98 (98-107) mmol/L Carbon Dioxide 26 (21-32) mmol/L Anion Gap 8.0 (3-11) BUN 12 (7-18) mg/dl Creatinine 0.86 (0.6-1.4) mg/dl Est Cr Clr Drug Dosing 196.7 ml/min Est GFR ( Amer) 134.9 Est GFR (Non-Af Amer) 116.4 BUN/Creatinine Ratio 14.3 (10-20) Glucose 178 H (70-99) mg/dl Estimat Average Glucose mg/dl Hemoglobin A1c (4.5-5.6) % Calcium 8.9 (8.5-10.1) mg/dl Total Bilirubin 0.9 (0.2-1) mg/dl AST 64 H (15-37) U/L ALT 63 (12-78) U/L Alkaline Phosphatase 89 (45-117) U/L Total Creatine Kinase 283 (39-308) U/L Troponin I < 0.015 (0-0.045) ng/ml Total Protein 8.5 H (6.4-8.2) gm/dl Albumin 3.4 (3.4-5.0) gm/dl Globulin 5.1 H (2.5-4.0) gm/dl Albumin/Globulin Ratio 0.7 L (0.9-2) 06/16/20 Range/Units 14:50 WBC (4.8-10.8) K/uL RBC (4.7-6.1) M/uL Hgb (14.0-18.0) g/dL Hct (42-52) % MCV (80-100) fL MCH (25-34) pg MCHC (32-36) g/dL RDW Std Deviation (36.4-46.3) fL RDW Coeff of Brittany (11.5-14.5) % Plt Count (130-400) K/uL MPV (7.4-10.4) fL Immature Gran % (Auto) % Neut % (Auto) % Lymph % (Auto) % [place] % (Auto) % Eos % (Auto) % Baso % (Auto) % Neut # (Auto) (1.4-6.5) K/uL Lymph # (Auto) (1.2-3.4) K/uL [place] # (Auto) (0.11-0.59) K/uL Eos # (Auto) (0-0.5) K/uL Baso # (Auto) (0-0.2) K/uL Immature Gran # (Auto) (0.00-0.02) K/uL PT (9.0-12.0) Seconds INR (0.9-1.1) Sodium (136-145) mmol/L Potassium (3.5-5.1) mmol/L Chloride (98-107) mmol/L Carbon Dioxide (21-32) mmol/L Anion Gap (3-11) BUN (7-18) mg/dl Creatinine (0.6-1.4) mg/dl Est Cr Clr Drug Dosing ml/min Est GFR ( Amer) Est GFR (Non-Af Amer) BUN/Creatinine Ratio (10-20) Glucose (70-99) mg/dl Estimat Average Glucose 186 mg/dl Hemoglobin A1c 8.1 H (4.5-5.6) % Calcium (8.5-10.1) mg/dl Total Bilirubin (0.2-1) mg/dl AST (15-37) U/L ALT (12-78) U/L Alkaline Phosphatase (45-117) U/L Total Creatine Kinase (39-308) U/L Troponin I (0-0.045) ng/ml Total Protein (6.4-8.2) gm/dl Albumin (3.4-5.0) gm/dl Globulin (2.5-4.0) gm/dl Albumin/Globulin Ratio (0.9-2) Imaging Data Attestation: I personally reviewed and interpreted this imaging study as follows: Radiologist's Impression: CTA chest 1. No central pulmonary emboli. Remainder of pulmonary arteries suboptimally assessed on this exam due to artifact. Consideration could be given to repeat PE chest CT. 2. Extensive multifocal consolidation and groundglass opacities within lungs which favor viral pneumonia. 3. Mild mediastinal and bilateral hilar lymphadenopathy which is likely reactive. 4. Hepatic steatosis and splenomegaly. ACT 112: Negative or not required by law. Electronically signed by: Rafael Rush M.D. 06/16/2020 5:20 PM Dictated: 06/16/201709Transcribed: 06/16/201709 ECG Data Attestation: I personally reviewed and interpreted this ECG as follows: Indication: + SOB/dyspnea Rate (beats per minute): 105 Rhythm: + sinus tachycardia Change: no significant change (2018) Additional Comments: CTA chest no schema changes noted. No ectopy. No significant change compared to prior EKG.. MDM Narrative differential diagnosis: Respiratory illness such as Covid, other viral illness, pneumonia, pulmonary embolus, cardiac ischemia, arrhythmia, anemia, sepsis, among others considered This patient is a 29-year-old male presents emergency department with increased dyspnea in the setting of testing positive for Covid 2 days ago. On exam, he was significantly tachypneic. He was also tachycardic. A work-up was performed. His EKG does not show any signs of ischemia. He is although tachycardic. Labs are fairly unremarkable. Troponin is negative. No leukocytosis noted. Given his symptoms, a CT of the chest was performed to rule out pulmonary embolism or any other cardiopulmonary defect. This is consistent with bilateral opacities. Due to his vital signs, symptoms and imaging results, I do not feel comfortable sending the patient home. It was felt that hospitalist consultation was warranted. They will evaluate the patient for likely inpatient management Impression & Plan Pneumonia, Chest pain, COVID-19 Discharge Plan Visit Data Chief Complaint: Fever Stated Complaint: FEVER, COUGH, POSITIVE COVID ED Provider: Joselito Rivas ED Midlevel Provider: Katina Chino Discharge Problem: Pneumonia, Chest pain, COVID-19 Patient Disposition: Admitted As Inpatient Discharge Instructions Interventions: ED Discharge Assessment Last Done: 06/16/20 18:42
[2020-06-16 14:56] LABS: Basophils # (auto) 0.01 K/uL (0-0.2); Basophils % (auto) 0.1 %; Hematocrit (blood only) 39.9 % (42-52); Immature Granulocytes # (auto) 0.02 K/uL (0.00-0.02); Immature Granulocytes % (auto) 0.2 %; Lymphocytes # (auto) 0.91 K/uL (1.2-3.4); Lymphocytes % (auto) 10.9 %; Mean Corpuscular Hemoglobin 27.8 pg (25-34); Mean Corpuscular Hgb Conc 32.6 g/dL (32-36); Mean Corpuscular Volume 85.4 fL (80-100); Mean Platelet Volume 10.8 fL (7.4-10.4); Monocytes # (auto) 0.43 K/uL (0.11-0.59); Monocytes % (auto) 5.1 %; Neutrophils # (auto) 6.99 K/uL (1.4-6.5); Neutrophils % (auto) 83.7 %; Platelet Count 126 K/uL (130-400); RDW Coefficient of Variation 15.3 % (11.5-14.5); RDW Standard Deviation 47.9 fL (36.4-46.3); Red Blood Count 4.67 M/uL (4.7-6.1); White Blood Count 8.36 K/uL (4.8-10.8)
[2020-06-16 15:07] LABS: INR 1.2 (0.9-1.1); Prothrombin Time 12.1 Seconds (9.0-12.0)
[2020-06-16 15:13] LABS: Alanine Aminotransferase 63 U/L (12-78); Albumin Level 3.4 gm/dl (3.4-5.0); Aspartate Aminotransferase 64 U/L (15-37); BUN Creatinine Ratio 14.3 (10-20); Blood Urea Nitrogen 12 mg/dl (7-18); Calcium 8.9 mg/dl (8.5-10.1); Carbon Dioxide 26 mmol/L (21-32); Chloride 98 mmol/L (98-107); Creatinine Clr Calc Pharmacy 196.7 ml/min; Est GFR (African American) 134.9; Est GFR (Non-African American) 116.4; Glucose 178 mg/dl (70-99); Potassium 3.6 mmol/L (3.5-5.1); Sodium 133 mmol/L (136-145)
[2020-06-16 15:17] LABS: Albumin Globulin Ratio 0.7 (0.9-2); Alkaline Phosphatase 89 U/L (45-117); Bilirubin,Total 0.9 mg/dl (0.2-1); Creatine Kinase 283 U/L (39-308); Globulin 5.1 gm/dl (2.5-4.0); Total Protein 8.5 gm/dl (6.4-8.2); Troponin I < 0.015 ng/ml (0-0.045)
[2020-06-16] MEDS ORDERED: SODIUM CHLORIDE 0.9% 1000ML 1,000 ML IV ONE (16:21)
[2020-06-16] MEDS ORDERED: OPTIRAY 320 125ml IV ONE (16:40)
--- NOTE | 2020-06-16 17:21 | CT Scan Report ---
CT ANGIOGRAPHY OF THE CHEST, PULMONARY EMBOLUS PROTOCOL CLINICAL HISTORY: + COVID SOB ? PE/PNA COMPARISON STUDY: Chest CT April 16, 2016. Chest radiograph January 19, 2019. TECHNIQUE: Following IV administration of 116 mL of Optiray-320, helical axial images of the chest we re obtained utilizing the pulmonary embolus protocol. Maximal intensity projections and sagittal and coronal reformats were viewed on an independent 3D workstation. IV contrast was administered withou t complication. Automated exposure control was utilized for the study. A dose lowering technique wa s utilized adhering to the principles of ALARA. CT DOSE: 690.85 mGycm FINDINGS: This exam is significantly compromised by suboptimal vascular opacification, quantum mottl e artifact and respiratory motion artifact. No central pulmonary embolus is identified. The remainder of the pulmonary arteries are suboptimally assessed. The size of the heart is normal. There is no th oracic aortic dissection. Minimally enlarged mediastinal and hilar lymph nodes. No pneumothorax or pl eural effusion is noted. Central airways are patent. Extensive multifocal consolidation and groundgla ss opacities within the lungs are noted. A few of opacities may have a reverse halo appearance. Centr al airways are patent. Bony thorax is unremarkable. Visualized portions of the upper abdomen demonstr ate hepatic steatosis. Splenomegaly is noted. This is likely unchanged. IMPRESSION: 1. No central pulmonary emboli. Remainder of pulmonary arteries suboptimally assessed on this exam du e to artifact. Consideration could be given to repeat PE chest CT. 2. Extensive multifocal consolidation and groundglass opacities within lungs which favor viral pneumo merlene. 3. Mild mediastinal and bilateral hilar lymphadenopathy which is likely reactive. 4. Hepatic steatosis and splenomegaly. ACT 112: Negative or not required by law. Electronically signed by: Rafael Rush M.D. 06/16/2020 5:20 PM
--- NOTE | 2020-06-16 18:26 | History & Physical Report ---
Date of Service June 16, 2020 Assessment & Plan (1) COVID-19: dx at [facility] last week Completed short course of abx Reported to be hypoxic at some point, however sats are WNL on RA now Monitor overnight with O2 PRN PNA, viral, no further abx Takes doxy at baseline for acne, continue (2) Unspecified sleep apnea: States compliant with CPAP, however did not use last night due to cough Will bring in home CPAP if staying tomorrow, but states he will not use it tonight (3) DM type 2 (diabetes mellitus, type 2): Metformin only, holding due to CT SSI PRN A1c pending (4) Anxiety: continue home meds (5) DVT prophylaxis: SCDs (6) Acne: continue doxy 100mg BID History of Present Illness Primary Care Provider: NO PCP 29 y/o M c/o SOB with coughing. Pt states he was dx with COVID at a [facility] last week. He was given 3 days of abx to take at that time, although he cannot remember the name. Possibly azithromycin. He states that over the last few days he has had worsening SOB with coughing. He also gets chest pain, but only with prolonged coughing. He states that he is able to ambulate without issue and did so to move from the bed to the CT scanner in the ED today. Slightly decreased appetite. No loss of taste or smell. Pt denies abd pain, n/v/c/d, LE pain or swelling. Pt states he has had fevers as well, last was this AM. Allergies Allergy/AdvReac Type Severity Reaction Status Date / Time No Known Allergies Allergy Verified 06/16/20 15:05 Home Medications Home Medications Medication Instructions Recorded Confirmed Type atorvastatin 10 mg PO DAILY 06/16/20 06/16/20 History clindamycin phosphate 1 applic TOPICAL BID PRN 06/16/20 06/16/20 History doxycycline monohydrate 100 mg PO BID 06/16/20 06/16/20 History lisinopril 10 mg PO DAILY 06/16/20 06/16/20 History metformin 1,000 mg PO BIDM 06/16/20 06/16/20 History pseudoephedrine-guaifenesin 1 tab PO Q12H PRN 06/16/20 06/16/20 History [Mucinex D Maximum Strength] Past Med/Surg History Medical History (Updated 06/16/20 @ 18:25 by Glenis Larry DO) Acute bronchitis Anxiety Diarrhea Dizziness Elevated TSH GERD (gastroesophageal reflux disease) Hypertension IBS (irritable bowel syndrome) Migraine Nausea Sleep apnea CPAP Transaminitis Unspecified sleep apnea Viral URI Vomiting Surgical History No history of previous surgery Family History Grandfather Family history of diabetes mellitus MATERNAL Other Gallbladder disease Heart disease Social History Smoking Status: Never smoker Second Hand Exposure: No; Hx Alcohol Use: No Hx Substance Use: No Preferred Language: Mongolian Communication Ability: Effective 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 Beliefs That Will Affect Care: None Current Living Situation: Other Current Living Situation Comment: LIVES WITH GIRLFRIEND Feels Safe at Home: Yes Assistive Devices: CPAP Review of Systems Review of Systems: Pertinent positives and negatives reviewed in HPI--all others negative Physical Exam Constitutional: WD/WN, vitals as above + morbidly obese Eyes: normal visual dennison by confrontation and + anicteric sclerae Neck: normal visual inspection and trachea midline Respiratory: normal respiratory effort; no respiratory distress Auscultation: + crackles; no wheezes Cardiovascular: Rate/Rhythm: regular rate and regular rhythm Gastrointestinal (Abdomen): Inspection/Auscultation: abdomen not distended Percussion/Palpation: abdomen soft; abdomen nontender Musculoskeletal: Head/Neck/Chest: normocephalic and head atraumatic negative for edema, peripheral pulses intact Skin: no rashes, warm and dry Neurologic: awake; not confused Speech / Cognition: normal speech Psychiatric: A+Ox3, euthymic affect Results & Data Results & Data ([facility]) Vital Signs (Past 12 Hours) Vital Signs Temp Pulse Pulse Resp BP BP Pulse Ox 06/16/20 17:30 95 H 22 139/79 95 06/16/20 16:30 113 H 26 H 125/77 98 06/16/20 14:59 117 H 20 131/73 96 06/16/20 13:55 37.3 C 118 H 24 126/69 94 Diagnostic Findings CTA: neg for PE, noted for b/l multifocal PNA ECG Rhythm: sinus tachycardia Code Status & VTE Plan Code Status Full code VTE Prophylaxis Plan VTE Prophylaxis will be ordered: Yes PG Care Time/CCT Total # of Minutes Spent Total Time Spent with Patient: Total time spent is greater than 50% in coordination of care (as documented) at patient's floor/unit and/or counseling patient: Coding Level of Care Code 56883 OBS Care - Level 3 Diagnoses COVID-19 U07.1 Unspecified sleep apnea DM type 2 (diabetes mellitus, type 2) E11.9 Anxiety F41.9 DVT prophylaxis Z29.9 Acne L70.9
[2020-06-16] MEDS ORDERED: CARBOHYDRATES FOR HYPOGLYCEMIA PO PRN (19:16)
[2020-06-16] MEDS ORDERED: GLUCOSE 40% GEL 15 GM TUBE PO PRN (19:16)
[2020-06-16] MEDS ORDERED: GLUCOSE 10 TABS/TUBE PO PRN (19:16)
[2020-06-16] MEDS ORDERED: PSEUDOEPHEDRINE GUAIFENESIN PO PRN (19:16)
[2020-06-16] MEDS ORDERED: [UNRECOGNIZED DRUG - OTHER] PO PRN (19:16)
[2020-06-16] MEDS ORDERED: DEXTROSE 50% 50 ML SYRINGE IV PRN (19:16)
[2020-06-16] MEDS ORDERED: GLUCAGON FOR INJ 1 MG VIAL SQ PRN (19:16)
[2020-06-16] MEDS ORDERED: MAGNESIUM HYDROXIDE SUSP 30 ML UDC PO PRN (19:16)
[2020-06-16] MEDS ORDERED: PSEUDOEPHEDRINE HCL 30 MG TAB PO PRN (19:42)
[2020-06-16] MEDS: DOXYCYCLINE HYCLATE 100 MG CAP PO SCH (21:26)
[2020-06-16] MEDS: INSULIN ASPART 100 UNITS/ML 3 ML PEN SC SCH (21:29)
[2020-06-16] MEDS: ACETAMINOPHEN 325 MG TAB PO PRN (21:39)
[2020-06-16] MEDS: ONDANSETRON INJ 2 MG/ML 2 ML VIAL IV PRN (21:39)
[2020-06-17] MEDS: guaiFENesin 600 MG TABCR PO PRN ×2 (00:20→08:08)
[2020-06-17] MEDS ORDERED: SODIUM CHLORIDE 0.9% 1000ML 500 ML IV ONE (01:16)
[2020-06-17] MEDS ORDERED: SODIUM CHLORIDE 0.9% 1000ML 1,000 ML IV ONE (01:26)
[2020-06-17] MEDS: HEPARIN SOD 5,000 UNIT/0.5 ML VIAL SQ SCH ×2 (01:57→09:37)
[2020-06-17] MEDS: ACETAMINOPHEN 325 MG TAB PO PRN ×2 (01:58→08:08)
[2020-06-17] MEDS ORDERED: HEPARIN SOD 5,000 UNIT/0.5 ML VIAL SQ SCH (06:00)
[2020-06-17] MEDS ORDERED: SODIUM CHLORIDE 0.9% 500 ML IV STA ×2 (06:28→11:35)
[2020-06-17 06:55] LABS: Estimated Average Glucose 186 mg/dl; Hemoglobin A1C 8.1 % (4.5-5.6)
[2020-06-17] MEDS: DOXYCYCLINE HYCLATE 100 MG CAP PO SCH (08:08)
[2020-06-17] MEDS ORDERED: lisinopril 10 MG TAB PO SCH (09:00)
[2020-06-17] MEDS ORDERED: SODIUM CHLORIDE 0.9% 500 ML IV SCH (09:00)
[2020-06-17] MEDS ORDERED: ATORVASTATIN 10 MG TAB PO SCH (09:00)
[2020-06-17] MEDS ORDERED: NSS + 20MEQ KCL 20 MEQ/1,000 ML BAG IV SCH (09:30)
[2020-06-17] MEDS: INSULIN ASPART 100 UNITS/ML 3 ML PEN SC SCH ×2 (09:37→13:27)
--- NOTE | 2020-06-17 10:07 | Electrocardiogram Report ---
Test Reason : Blood Pressure : / mmHG Vent. Rate : 105 BPM Atrial Rate : 105 BPM P-R Int : 132 ms QRS Dur : 100 ms QT Int : 334 ms P-R-T Axes : 060 028 060 degrees QTc Int : 441 ms Sinus tachycardia Otherwise normal ECG When compared with ECG of 18-JAN-2019 23:35, No significant change was found Confirmed by Bandar Jimenez ([id number]) on 06/17/2020 10:07:22 AM Referred By: REFERRED SELF Confirmed By:Bandar Jimenez
[2020-06-17] MEDS ORDERED: levoFLOXacin/D5W 750 MG/150 ML BAG IV SCH (14:00)
--- NOTE | 2020-06-17 14:35 | Electrocardiogram Report ---
Test Reason : Blood Pressure : / mmHG Vent. Rate : 129 BPM Atrial Rate : 129 BPM P-R Int : 158 ms QRS Dur : 098 ms QT Int : 308 ms P-R-T Axes : 066 038 069 degrees QTc Int : 451 ms Sinus tachycardia Otherwise normal ECG When compared with ECG of 16-JUN-2020 14:55, No significant change was found Confirmed by Bandar Jimenez ([id number]) on 06/17/2020 2:35:02 PM Referred By: REFERRED SELF Confirmed By:Bandar Jimenez
--- NOTE | 2020-06-17 15:32 | Discharge Summary ---
Date of Service June 17, 2020 Admission HPI Per Admitting Provider 29 y/o M c/o SOB with coughing. Pt states he was dx with COVID at a [facility] last week. He was given 3 days of abx to take at that time, although he cannot remember the name. Possibly azithromycin. He states that over the last few days he has had worsening SOB with coughing. He also gets chest pain, but only with prolonged coughing. He states that he is able to ambulate without issue and did so to move from the bed to the CT scanner in the ED today. Slightly decreased appetite. No loss of taste or smell. Pt denies abd pain, n/v/c/d, LE pain or swelling. Pt states he has had fevers as well, last was this AM. Principal Diagnosis Pt states he feels much better today than yesterday. He has been OOB without SOB. His SOB was mainly with increased coughing and his cough is mostly gone, which has lead to near resolution of SOB. No chest pain. Mild nausea with PO intake, but tolerating overall. He would like to go home. Pt denies fever, abd pain, v/c/d, LE pain or swelling. Discharge Exam Constitutional WD/WN, vitals as above + morbidly obese Eyes normal visual dennison by confrontation and + anicteric sclerae Neck normal visual inspection and trachea midline Respiratory normal respiratory effort; no respiratory distress Auscultation: no crackles (resolved) and no wheezes Cardiovascular Rate/Rhythm: regular rate and regular rhythm Gastrointestinal (Abdomen) Inspection/Auscultation: abdomen not distended Percussion/Palpation: abdomen soft; abdomen nontender Musculoskeletal Head/Neck/Chest: normocephalic and head atraumatic Skin no rashes, warm and dry Neurologic awake; not confused Speech / Cognition: normal speech Psychiatric A+Ox3, euthymic affect Discharge Data Allergies Allergy/AdvReac Type Severity Reaction Status Date / Time No Known Allergies Allergy Verified 06/16/20 15:05 Consultations 06/16/20 17:38 ED Decision to Admit Stat Ordered Studies 06/16/20 14:33 CT angio chest PE protocol Stat Hospital Course (1) COVID-19: dx at [facility] last week Completed short course of abx from that facility, however he is unsure of the name (possibly azithromycin, states 3 day course) Reported to be hypoxic at some point, however sats have been in the 90s on RA since admission There was trial of O2 for tachycardia, this did not help PNA, viral, no further abx Takes doxy at baseline for acne, continue (2) Tachycardia: Persistent despite IVF BP has been stable EKG is sinus x2 Likely related to viral syndrome and fevers Pt asx with this and requesting to go home Discussed at length, advised to return to ED if return of SOB (3) Unspecified sleep apnea: States compliant with CPAP, however did not use last night due to cough Will bring in home CPAP if staying tomorrow, but states he will not use it tonight (4) DM type 2 (diabetes mellitus, type 2): Metformin only, holding due to CT until tomorrow afternoon SSI PRN during admission A1c 8.1 (5) Anxiety: continue home meds (6) DVT prophylaxis: SCDs (7) Acne: continue doxy 100mg BID Total Time Total Time Spent Total Time Spent (In Minutes): >30 Total Time Includes: Examination of the Patient, Discharge Planning, Medication Reconciliation and Other Discharge Plan Discharge Items Patient Disposition: Home - Self-Care Reason For Visit: SOB Discharge Diagnosis: SOB related to COVID Activity: Resume your previous activity Non-emergency contact: Primary Care Provider Call non-emergency contact if: you have any medication questions and your symptoms worsen Follow-up/Referrals: PCP,NO [Primary Care Provider] - Diet: Carb Consistent or DM2 Addtl Attending Provider Instructions: You had IV contrast with your CT scan yesterday. Due to this, you should not take your metformin until tomorrow afternoon. You should follow up with your PCP in the next few days. You should focus on drinking lots of fluids, mostly water or broth. You should also go back to using your CPAP which will help with your lung infection and overall breathing. Pending Studies at Discharge: No Stand-Alone Forms: My [employer], Smoking Cessation Medications and DC Order Prescriptions: Continued atorvastatin 10 mg Tablet 10 mg PO DAILY RF: 0 doxycycline monohydrate 100 mg Tablet 100 mg PO BID RF: 0 clindamycin phosphate 1 % Gel 1 applic TOPICAL BID PRN (Reason: flareups) RF: 0 pseudoephedrine-guaifenesin [Mucinex D Maximum Strength] 120-1,200 mg Tablet Extended Release 12 Hr 1 tab PO Q12H PRN (Reason: Congestion) RF: 0 metformin 1,000 mg Tablet 1,000 mg PO BIDM RF: 0 lisinopril 10 mg Tablet 10 mg PO DAILY RF: 0 Discharge Orders: Discharge Order (Routine); Ordered 06/17/20 Ordered By: Glenis Yip/Other Patient Handouts: High Blood Sugar (Hyperglycemia), Managing Type 2 Diabetes, Preventing the Spread of ..., Managing Diabetes: The A1C Test, Dealing With the Stress of ... Admission Data Admit Date/Time: 06/16/20 18:17 Attending Provider: Glenis Larry Admit Provider: Glenis Larry Primary Care Provider: PCP,NO Other Providers: Glenis Larry Other Interventions: Discharge Summary Assessment (RN) Last Done: 06/17/20 15:22 Coding Level of Care Code D/C Day Management >30 mins Diagnoses COVID-19 U07.1 Tachycardia R00.0 Unspecified sleep apnea DM type 2 (diabetes mellitus, type 2) E11.9 Anxiety F41.9 DVT prophylaxis Z29.9 Acne L70.9
[2020-06-17] MEDS: ONDANSETRON INJ 2 MG/ML 2 ML VIAL IV PRN (17:01)
== END 2020-06-17 18:12 | disposition home or self-care (01) ==
LOC: 3N 13:47 → ED 13:47 → 3N 18:42
DX: E11.9 Type 2 diabetes mellitus without complications; Z99.89 Dependence on other enabling machines and devices; U07.1 COVID-19; R00.0 Tachycardia, unspecified; Z87.891 Personal history of nicotine dependence; G47.30 Sleep apnea, unspecified; Z79.84 Long term (current) use of oral hypoglycemic drugs; Z79.899 Other long term (current) drug therapy

== ENCOUNTER 2020-06-19 14:13 | Inpatient (IN) ==
[2020-06-19] MEDS ORDERED: DEXAMETHASONE SOD INJ 10 MG/ML VIAL IV ONE (14:50)
[2020-06-19] MEDS ORDERED: SODIUM CHLORIDE 0.9% 1000ML 1,000 ML IV ONE (14:50)
[2020-06-19] MEDS ORDERED: AZITHROMYCIN 250 MG TAB PO ONE (14:52)
[2020-06-19] MEDS ORDERED: cefTRIAXone SODIUM 1,000 MG/50 ML BAG IV STA (14:52)
--- NOTE | 2020-06-19 14:56 | Emergency Department Note ---
Impression & Plan Respiratory failure, acute, Bilateral pulmonary infiltrates on CXR, Elevated lactic acid level, Acute hypokalemia ED Provider Note NAME: ALICIA BIRCH AGE: 29 SEX: M : 1990 ARRIVES VIA: Walk-In INFORMANT: Patient ED PROVIDER(S): Yaron Cody DO CHIEF COMPLAINT: SOB HPI: Patient is a 29-year-old male with past medical history of type 2 diabetes and GERD that presents the ER for shortness of breath. He was initially seen at [facility] about 9 to 10 days ago. He was placed on a short course of antibiotics. He was seen here and evaluated and admitted on the eighth as he tested positive for Covid at [facility]. He was discharged about 2 days ago. His shortness of breath has gotten significantly worse. He is no longer able to ambulate without becoming significantly dyspneic. Denies any chest pain. No belly pain. No nausea vomiting or diarrhea. No dysuria urgency or frequency. No other exacerbating or remitting factors. Still has a persistent cough. He does admit to fever of 102 today. ROS: See above HPI for pertinent positives & negatives. A total of 10 systems reviewed and were otherwise negative. PAST MEDICAL HISTORY:See Below PAST SURGICAL HISTORY:See Below FAMILY HISTORY:See Below SOCIAL HISTORY:See Below HOME MEDICATIONS:See Below ALLERGIES:See Below VITALS:See Below PHYSICAL EXAMINATION: GENERAL: Sitting up in bed, alert, ill-appearing, dyspneic with conversation, morbidly obese, moderate distress EYE EXAM: normal conjunctiva. OROPHARYNX: no exudate, no erythema, lips, buccal mucosa, and tongue normal and mucous membranes are moist NECK: supple, no nuchal rigidity, no adenopathy, non-tender LUNGS: Distant, mild wheezing in left midlung. Normal chest wall mechanics HEART: Distant, no murmurs, S1 normal and S2 normal ABDOMEN: abdomen soft, non-tender, normo-active bowel sounds, no masses, no rebound or guarding. BACK: Back is symmetrical on inspection and there is no deformity, no midline tenderness, no CVA tenderness. SKIN: no rashes and no bruising UPPER EXTREMITIES: upper extremities are grossly normal. LOWER EXTREMITIES: Mild edema bilateral lower extremities. Calves are equal bilateral NEURO EXAM: Normal sensorium, cranial nerves II-XII grossly intact, normal speech, no gross weakness of arms, no gross weakness of legs. MEDICAL DECISION MAKING: Patient is a 29-year-old male who was recently admitted and discharge Covid positive the presents the ER for worsening shortness of breath. Upon presentation he is found to be hypoxic with a pulse ox in the 60s to 70s. He was placed on high flow nasal cannula. IV was established blood work was obtained. Appropriate PPE was worn. Labs show no significant leukocytosis and mild anemia 11.7 thousand. INR was unremarkable. VBG with a pH of 7.47. BMP with mild hyponatremia natremia, hypokalemia. Lactate was elevated 2.2. LFTs bilirubin and troponin was unremarkable. Pro-Chinedu elevated at 34. Chest x-ray with bilateral infiltrates. Patient was covered with IV antibiotics and IV fluids. He was updated at bedside. He was discussed with the hospitalist and admitted and remained on high flow nasal cannula while in the ER. Pulse ox was 93% while on high flow nasal cannula. Patient was also given IV Decadron as well as azithromycin and Rocephin. Triage Nursing notes reviewed. Prior medical records reviewed Vital Signs: reviewed and remarkable for hypertensive and tachycardic and hypoxic Differential diagnosis: Differential diagnoses includes but is not limited to pneumonia, bronchitis, COPD/Asthma exacerbation, pneumothorax, pulmonary embolism, congestive heart failure, acute coronary syndrome ER treatment provided: See below Diagnostics interpreted by me: ECG: Sinus tachycardia rate of 123 Normal axis No PVCs QTC 452 Cardiac Monitoring: An order was placed for continuous cardiac monitoring. The monitor shows a rate of 120 with sinus rhythm. Laboratory studies: As stated above and show below. Imaging studies: Chest x-ray shows bilateral multifocal infiltrates Consultation(s): Discussed with Dr. Jay Soto for further evaluation ED COURSE: Procedures: none Critical Care: I have personally spent 50 minutes of critical care time in the direct management of this patient. This includes bedside care, interpretation of diagnostic studies, and testing, discussion with consultants, patient, and family members, and other required patient management activities. This 50 minutes is in excess of all separately billable procedures. Past Med/Surg History Medical History Acute bronchitis Anxiety Diarrhea Dizziness Elevated TSH GERD (gastroesophageal reflux disease) Hypertension IBS (irritable bowel syndrome) Migraine Nausea Sleep apnea CPAP Transaminitis Unspecified sleep apnea Viral URI Vomiting Surgical History No history of previous surgery Family History Grandfather Family history of diabetes mellitus MATERNAL Other Gallbladder disease Heart disease Social History Smoking Status: Unknown if ever smoked Second Hand Exposure: No; Hx Alcohol Use: No Hx Substance Use: No Preferred Language: Hungarian Communication Ability: Effective Malware Analyst Required: No Beliefs That Will Affect Care: None and Mosque Mosque Beliefs: No Pork products Current Living Situation: Alone Current Living Situation Comment: LIVES WITH GIRLFRIEND Feels Safe at Home: Yes Assistive Devices: None Allergies Allergies Allergy/AdvReac Type Severity Reaction Status Date / Time No Known Allergies Allergy Verified 06/19/20 16:18 Home Meds Home Medications Medication Instructions Recorded Confirmed atorvastatin 10 mg PO DAILY 06/16/20 06/19/20 clindamycin phosphate 1 applic TOPICAL BID PRN 06/16/20 06/19/20 doxycycline monohydrate 100 mg PO BID 06/16/20 06/19/20 lisinopril 10 mg PO DAILY 06/16/20 06/19/20 metformin 1,000 mg PO BIDM 06/16/20 06/19/20 pseudoephedrine-guaifenesin 1 tab PO UD PRN 06/16/20 06/19/20 [Mucinex D Maximum Strength] Results & Data (ED) Vital Signs Vital Signs - 24 hr 06/19/20 14:30 06/19/20 15:06 06/19/20 15:29 Temperature 36.8 C Temperature Source Oral Pulse Rate 132 H 128 H Pulse Rate [Apical] 127 H Pulse Rate from SpO2 Sensor 129 H Respiratory Rate 24 28 H Respiratory Effort / Characteristics Spontaneous Labored Short of Breath Blood Pressure 168/73 H Blood Pressure Mean 104 Pulse Oximetry 81 L 95 96 Oxygen Delivery Method Room Air High Flow Nasal Cannula Oxygen Flow Rate 30 Fraction of Inspired Oxygen 60 Sepsis Recent Fever Within 48 Hours No Sepsis New/Unexplained Change in Mental Status No Sepsis Action Taken by Nursing No Action Required 06/19/20 15:30 06/19/20 15:40 06/19/20 16:00 Temperature Temperature Source Pulse Rate 126 H 125 H Pulse Rate [Apical] Pulse Rate from SpO2 Sensor 126 H 125 H Respiratory Rate 22 33 H Respiratory Effort / Characteristics Labored Blood Pressure Blood Pressure Mean Pulse Oximetry 95 95 95 Oxygen Delivery Method High Flow Nasal Cannula Oxygen Flow Rate Fraction of Inspired Oxygen Sepsis Recent Fever Within 48 Hours Sepsis New/Unexplained Change in Mental Status Sepsis Action Taken by Nursing 06/19/20 16:30 06/19/20 17:00 06/19/20 17:14 Temperature Temperature Source Pulse Rate 126 H 125 H 123 H Pulse Rate [Apical] Pulse Rate from SpO2 Sensor 126 H 125 H 123 H Respiratory Rate 32 H 23 Respiratory Effort / Characteristics Blood Pressure 177/69 H Blood Pressure Mean 131 Pulse Oximetry 94 94 93 Oxygen Delivery Method Oxygen Flow Rate Fraction of Inspired Oxygen Sepsis Recent Fever Within 48 Hours Sepsis New/Unexplained Change in Mental Status Sepsis Action Taken by Nursing 06/19/20 17:30 06/19/20 18:00 06/19/20 18:30 Temperature Temperature Source Pulse Rate 121 H 119 H 118 H Pulse Rate [Apical] Pulse Rate from SpO2 Sensor 118 H 119 H Respiratory Rate 25 H 25 H Respiratory Effort / Characteristics Blood Pressure 171/73 H 182/71 H 163/71 H Blood Pressure Mean 98 100 95 Pulse Oximetry 93 93 Oxygen Delivery Method Oxygen Flow Rate Fraction of Inspired Oxygen Sepsis Recent Fever Within 48 Hours Sepsis New/Unexplained Change in Mental Status Sepsis Action Taken by Nursing 06/19/20 18:52 06/19/20 19:00 Temperature Temperature Source Pulse Rate 116 H Pulse Rate [Apical] 116 H Pulse Rate from SpO2 Sensor 115 H Respiratory Rate 28 H 24 Respiratory Effort / Characteristics Spontaneous Short of Breath Blood Pressure 159/76 H Blood Pressure Mean 100 Pulse Oximetry 94 93 Oxygen Delivery Method High Flow Nasal Cannula Oxygen Flow Rate 30 Fraction of Inspired Oxygen 60 Sepsis Recent Fever Within 48 Hours Sepsis New/Unexplained Change in Mental Status Sepsis Action Taken by Nursing Laboratory Data Result diagrams: 06/19/20 15:40 06/19/20 15:40 Lab Results 06/19/20 06/19/20 06/19/20 Range/Units 15:01 15:01 15:40 WBC (4.8-10.8) K/uL RBC (4.7-6.1) M/uL Hgb (14.0-18.0) g/dL Hct (42-52) % MCV (80-100) fL MCH (25-34) pg MCHC (32-36) g/dL RDW Std Deviation (36.4-46.3) fL RDW Coeff of Brittany (11.5-14.5) % Plt Count (130-400) K/uL MPV (7.4-10.4) fL Immature Gran % (Auto) % Neut % (Auto) % Lymph % (Auto) % Ramsey % (Auto) % Eos % (Auto) % Baso % (Auto) % Neut # (Auto) (1.4-6.5) K/uL Lymph # (Auto) (1.2-3.4) K/uL Ramsey # (Auto) (0.11-0.59) K/uL Eos # (Auto) (0-0.5) K/uL Baso # (Auto) (0-0.2) K/uL Immature Gran # (Auto) (0.00-0.02) K/uL PT (9.0-12.0) Seconds INR (0.9-1.1) APTT (21.0-31.0) Seconds PTT Ratio ABG pH 7.47 H (7.35-7.45) ABG pCO2 36 (35-46) mmHg ABG pO2 66 L (80-95) mmHg ABG HCO3 26 H (19-24) mmol/L ABG O2 Saturation 93.4 (90-95) % ABG Base Excess 2.1 H (-9-1.8) mEq/L Lamberto Test POS (Pos) VBG pH (7.36-7.41) VBG pCO2 (38-50) mmHg VBG pO2 mmHg VBG HCO3 mmol/L VBG O2 Saturation % VBG Base Excess mEq/L Barometric Pressure 733.3 mm/Hg Oxygen Given 60% Sodium (136-145) mmol/L Potassium (3.5-5.1) mmol/L Chloride (98-107) mmol/L Carbon Dioxide (21-32) mmol/L Anion Gap (3-11) BUN (7-18) mg/dl Creatinine (0.6-1.4) mg/dl Est Cr Clr Drug Dosing Est GFR ( Amer) Est GFR (Non-Af Amer) BUN/Creatinine Ratio (10-20) Glucose (70-99) mg/dl Lactate 1.7 (0.4-2.0) mmol/L Calcium (8.5-10.1) mg/dl Magnesium (1.8-2.4) mg/dl Total Bilirubin (0.2-1) mg/dl AST (15-37) U/L ALT (12-78) U/L Alkaline Phosphatase (45-117) U/L Troponin I (0-0.045) ng/ml Total Protein (6.4-8.2) gm/dl Albumin (3.4-5.0) gm/dl Globulin (2.5-4.0) gm/dl Albumin/Globulin Ratio (0.9-2) Procalcitonin 34.34 H (0-0.5) ng/ml 06/19/20 06/19/20 06/19/20 Range/Units 15:40 15:40 15:40 WBC 8.17 (4.8-10.8) K/uL RBC 4.27 L (4.7-6.1) M/uL Hgb 11.7 L (14.0-18.0) g/dL Hct 36.3 L (42-52) % MCV 85.0 (80-100) fL MCH 27.4 (25-34) pg MCHC 32.2 (32-36) g/dL RDW Std Deviation 47.1 H (36.4-46.3) fL RDW Coeff of Brittany 15.1 H (11.5-14.5) % Plt Count 154 (130-400) K/uL MPV 10.9 H (7.4-10.4) fL Immature Gran % (Auto) 0.7 % Neut % (Auto) 90.4 % Lymph % (Auto) 6.6 % Ramsey % (Auto) 2.3 % Eos % (Auto) 0.0 % Baso % (Auto) 0.0 % Neut # (Auto) 7.38 H (1.4-6.5) K/uL Lymph # (Auto) 0.54 L (1.2-3.4) K/uL Ramsey # (Auto) 0.19 (0.11-0.59) K/uL Eos # (Auto) 0.00 (0-0.5) K/uL Baso # (Auto) 0.00 (0-0.2) K/uL Immature Gran # (Auto) 0.06 H (0.00-0.02) K/uL PT 13.2 H (9.0-12.0) Seconds INR 1.3 H (0.9-1.1) APTT 27.9 (21.0-31.0) Seconds PTT Ratio 1.0 ABG pH (7.35-7.45) ABG pCO2 (35-46) mmHg ABG pO2 (80-95) mmHg ABG HCO3 (19-24) mmol/L ABG O2 Saturation (90-95) % ABG Base Excess (-9-1.8) mEq/L Lamberto Test (Pos) VBG pH (7.36-7.41) VBG pCO2 (38-50) mmHg VBG pO2 mmHg VBG HCO3 mmol/L VBG O2 Saturation % VBG Base Excess mEq/L Barometric Pressure mm/Hg Oxygen Given Sodium 131 L (136-145) mmol/L Potassium 3.1 L (3.5-5.1) mmol/L Chloride 96 L (98-107) mmol/L Carbon Dioxide 28 (21-32) mmol/L Anion Gap 8.0 (3-11) BUN 8 (7-18) mg/dl Creatinine 0.86 (0.6-1.4) mg/dl Est Cr Clr Drug Dosing Not Reportable Est GFR ( Amer) 134.9 Est GFR (Non-Af Amer) 116.4 BUN/Creatinine Ratio 9.5 L (10-20) Glucose 192 H (70-99) mg/dl Lactate (0.4-2.0) mmol/L Calcium 8.8 (8.5-10.1) mg/dl Magnesium 2.2 (1.8-2.4) mg/dl Total Bilirubin 0.8 (0.2-1) mg/dl AST 76 H (15-37) U/L ALT 69 (12-78) U/L Alkaline Phosphatase 73 (45-117) U/L Troponin I < 0.015 (0-0.045) ng/ml Total Protein 8.0 (6.4-8.2) gm/dl Albumin 2.8 L (3.4-5.0) gm/dl Globulin 5.2 H (2.5-4.0) gm/dl Albumin/Globulin Ratio 0.5 L (0.9-2) Procalcitonin (0-0.5) ng/ml 06/19/20 06/19/20 Range/Units 15:40 17:32 WBC (4.8-10.8) K/uL RBC (4.7-6.1) M/uL Hgb (14.0-18.0) g/dL Hct (42-52) % MCV (80-100) fL MCH (25-34) pg MCHC (32-36) g/dL RDW Std Deviation (36.4-46.3) fL RDW Coeff of Brittany (11.5-14.5) % Plt Count (130-400) K/uL MPV (7.4-10.4) fL Immature Gran % (Auto) % Neut % (Auto) % Lymph % (Auto) % Ramsey % (Auto) % Eos % (Auto) % Baso % (Auto) % Neut # (Auto) (1.4-6.5) K/uL Lymph # (Auto) (1.2-3.4) K/uL Ramsey # (Auto) (0.11-0.59) K/uL Eos # (Auto) (0-0.5) K/uL Baso # (Auto) (0-0.2) K/uL Immature Gran # (Auto) (0.00-0.02) K/uL PT (9.0-12.0) Seconds INR (0.9-1.1) APTT (21.0-31.0) Seconds PTT Ratio ABG pH (7.35-7.45) ABG pCO2 (35-46) mmHg ABG pO2 (80-95) mmHg ABG HCO3 (19-24) mmol/L ABG O2 Saturation (90-95) % ABG Base Excess (-9-1.8) mEq/L Lamberto Test (Pos) VBG pH 7.47 H (7.36-7.41) VBG pCO2 37 L (38-50) mmHg VBG pO2 43 mmHg VBG HCO3 26 mmol/L VBG O2 Saturation 79.4 % VBG Base Excess 2.8 mEq/L Barometric Pressure 732.9 mm/Hg Oxygen Given Sodium (136-145) mmol/L Potassium (3.5-5.1) mmol/L Chloride (98-107) mmol/L Carbon Dioxide (21-32) mmol/L Anion Gap (3-11) BUN (7-18) mg/dl Creatinine (0.6-1.4) mg/dl Est Cr Clr Drug Dosing Est GFR ( Amer) Est GFR (Non-Af Amer) BUN/Creatinine Ratio (10-20) Glucose (70-99) mg/dl Lactate 2.2 H* (0.4-2.0) mmol/L Calcium (8.5-10.1) mg/dl Magnesium (1.8-2.4) mg/dl Total Bilirubin (0.2-1) mg/dl AST (15-37) U/L ALT (12-78) U/L Alkaline Phosphatase (45-117) U/L Troponin I (0-0.045) ng/ml Total Protein (6.4-8.2) gm/dl Albumin (3.4-5.0) gm/dl Globulin (2.5-4.0) gm/dl Albumin/Globulin Ratio (0.9-2) Procalcitonin (0-0.5) ng/ml Administered Medications Discontinued Medications Azithromycin (Azithromycin 250 Mg Tab) 500 mg PO NOW ONE Stop: 06/19/20 14:53 Last Admin: 06/19/20 15:58 Dose: 500 mg Documented by: [id number] Dexamethasone (Dexamethasone Sod Inj 10 Mg/Ml Vial) 6 mg IV NOW ONE Stop: 06/19/20 14:51 Last Admin: 06/19/20 15:58 Dose: 6 mg Documented by: [id number] Sodium Chloride (Nss 1000ml) 1,000 mls @ 999 mls/hr IV .Q1H1M ONE Stop: 06/19/20 15:50 Last Infusion: 06/19/20 17:48 Dose: 0 mls/hr Documented by: [id number] Admin: 06/19/20 16:38 Dose: 999 mls/hr Documented by: [id number] Ceftriaxone Sodium (Rocephin) 1,000 mg in 50 mls @ 100 mls/hr IV NOW STA Stop: 06/19/20 15:21 Last Infusion: 06/19/20 16:31 Dose: 0 mls/hr Documented by: [id number] Admin: 06/19/20 15:58 Dose: 100 mls/hr Documented by: [id number] Sodium Chloride (Nss) 500 mls @ 999 mls/hr IV .Q31M ONE Stop: 06/19/20 17:05 Last Infusion: 06/19/20 17:48 Dose: 0 mls/hr Documented by: [id number] Admin: 06/19/20 17:15 Dose: 999 mls/hr Documented by: [id number] Discharge Plan Visit Data Chief Complaint: Shortness of Breath/Dyspnea Stated Complaint: SOB ED Provider: Yaron Cody Discharge Problem: Respiratory failure, acute, Bilateral pulmonary infiltrates on CXR, Elevated lactic acid level, Acute hypokalemia Forms Stand Alone Forms: [facility] Prescriptions Prescriptions: No Action atorvastatin 10 mg Tablet 10 mg PO DAILY RF: 0 doxycycline monohydrate 100 mg Tablet 100 mg PO BID RF: 0 clindamycin phosphate 1 % Gel 1 applic TOPICAL BID PRN (Reason: flareups) RF: 0 pseudoephedrine-guaifenesin [Mucinex D Maximum Strength] 120-1,200 mg Tablet Extended Release 12 Hr 1 tab PO UD PRN (Reason: Congestion) RF: 0 metformin 1,000 mg Tablet 1,000 mg PO BIDM RF: 0 lisinopril 10 mg Tablet 10 mg PO DAILY RF: 0 Discharge Problem: Respiratory failure, acute Qualifiers: Respiratory failure complication: hypoxia Qualified Code(s): J96.01 - Acute respiratory failure with hypoxia
--- NOTE | 2020-06-19 15:37 | XRay Report ---
XR chest 1V portable CLINICAL HISTORY: SEPSIS COMPARISON STUDY: 01/19/2019, CT scan dated 06/16/2020 FINDINGS: The heart is enlarged. There are progressive extensive bilateral pulmonary airspace opaciti es consistent with a multifocal pneumonia. No pneumothorax is visualized. There are no pleural effusi ons.[ IMPRESSION: Progressive extensive bilateral pulmonary airspace opacities consistent with a multifocal pneumonia. ACT 112: Negative or not required by law. Electronically signed by: Albino Salmon M.D. 06/19/2020 3:36 PM
[2020-06-19 16:10] LABS: Hematocrit (blood only) 36.3 % (42-52); Hemoglobin 11.7 g/dL (14.0-18.0); Immature Granulocytes # (auto) 0.06 K/uL (0.00-0.02); Immature Granulocytes % (auto) 0.7 %; Lymphocytes # (auto) 0.54 K/uL (1.2-3.4); Lymphocytes % (auto) 6.6 %; Mean Corpuscular Hemoglobin 27.4 pg (25-34); Mean Corpuscular Hgb Conc 32.2 g/dL (32-36); Mean Platelet Volume 10.9 fL (7.4-10.4); Monocytes # (auto) 0.19 K/uL (0.11-0.59); Monocytes % (auto) 2.3 %; Neutrophils # (auto) 7.38 K/uL (1.4-6.5); Neutrophils % (auto) 90.4 %; Platelet Count 154 K/uL (130-400); RDW Coefficient of Variation 15.1 % (11.5-14.5); RDW Standard Deviation 47.1 fL (36.4-46.3); Red Blood Count 4.27 M/uL (4.7-6.1); White Blood Count 8.17 K/uL (4.8-10.8)
[2020-06-19 16:24] LABS: Alanine Aminotransferase 69 U/L (12-78); Albumin Globulin Ratio 0.5 (0.9-2); Albumin Level 2.8 gm/dl (3.4-5.0); Alkaline Phosphatase 73 U/L (45-117); Aspartate Aminotransferase 76 U/L (15-37); BUN Creatinine Ratio 9.5 (10-20); Bilirubin,Total 0.8 mg/dl (0.2-1); Blood Urea Nitrogen 8 mg/dl (7-18); Calcium 8.8 mg/dl (8.5-10.1); Carbon Dioxide 28 mmol/L (21-32); Chloride 96 mmol/L (98-107); Est GFR (African American) 134.9; Est GFR (Non-African American) 116.4; Globulin 5.2 gm/dl (2.5-4.0); Glucose 192 mg/dl (70-99); Magnesium 2.2 mg/dl (1.8-2.4); Potassium 3.1 mmol/L (3.5-5.1); Sodium 131 mmol/L (136-145); Troponin I < 0.015 ng/ml (0-0.045)
[2020-06-19 16:28] LABS: INR 1.3 (0.9-1.1); Partial Thromboplastin Time 27.9 Seconds (21.0-31.0); Prothrombin Time 13.2 Seconds (9.0-12.0)
[2020-06-19] MEDS ORDERED: SODIUM CHLORIDE 0.9% 500 ML IV ONE (16:35)
[2020-06-19] MEDS ORDERED: VANCOMYCIN CONSULT ACTIVE PRN (17:30)
[2020-06-19] MEDS ORDERED: CEFEPIME 2,000 MG/20 ML VIAL IV STA (17:30)
[2020-06-19] MEDS ORDERED: VANCOMYCIN HCL 2,750 MG in SODIUM CHLORIDE 0.9% 500 ML IV ONE (17:30)
[2020-06-19] MEDS ORDERED: POTASSIUM CHLORIDE CRTAB 20 MEQ TABCR PO STA (17:32)
[2020-06-19 17:52] LABS: Base Excess VBG 2.8 mEq/L; Oxygen Saturation VBG 79.4 %; pH VBG 7.47 (7.36-7.41)
[2020-06-19 18:15] LABS: Base Excess ABG 2.1 mEq/L (-9-1.8); HCO3 ABG 26 mmol/L (19-24); Oxygen Saturation ABG 93.4 % (90-95); PCO2 ABG 36 mmHg (35-46); PO2 ABG 66 mmHg (80-95); pH ABG 7.47 (7.35-7.45)
[2020-06-19 18:17] LABS: Allen Test POS (Pos)
--- NOTE | 2020-06-19 21:27 | History & Physical Report ---
Date of Service June 19, 2020 Assessment & Plan (1) Sepsis: Secondary to COVID-19 +/- multifocal bacterial pneumonia as below. Lactate 1.7 - will avoid agressive hydration in setting of COVID-19 and although tachycardia his BP remains WNL. Follow up blood cultures. Broad-spectrum antibiotics as below. (2) Respiratory failure, acute: Hypoxic, no CO2 retention on ABG Aim O2 sats > 90% (3) COVID-19: Dexamethasone, Remdesivir and convalescent plasma. Fact sheets given and discussed with patient. Blood product consent signed. (4) Multifocal pneumonia: I suspect the reason for his acute worsening is a bacterial pneumonia on top of COVID-19. Will treat with broad spectrum antibiotics cefepime and azithromycin (although notably recently completed a course of azithromycin as an outpatient). (5) DM type 2 (diabetes mellitus, type 2): HbA1C 8.1 [06/16/20] Consult pharmacy for glycemic control with basal bolus insulin and coverage for dexamethasone dosing. (6) Acne: Hold doxycycline while on antibiotics above (7) DVT prophylaxis: Given increased hypercoagulable state with COVID-19 will treat with Lovenox 40mg SQ BID Admission and Anticipated Discharge Date Admission Date: 08/19/2019 History of Present Illness Chief Complaint: Shortness of breath, hypoxia, COVID-19 Primary Care Provider: NO PCP Asif Brown is a 29 year old male with obstructive sleep apnea and type 2 diabetes who presents to the ER with worsening shortness of breath and cough after recent diagnosis of COVID-19. History taken from the patient difficult due to tachypnea and mild confusion. Majority of history taken from prior notes and his father. He was recently diagnosed at [facility] on June 14 due to shortness of breath and fever at that time. He was prescribed prednisone 60 mg for 3 days and azithromycin 500 mg for 3 days. However he came to the emergency room 2 days later due to worsening cough and shortness of breath. Per notes of the time he was not significantly hypoxic and was discharged the following day (June 17, Wednesday) without any antibiotic (other than his usual acne doxycycline treatment) or steroid treatment. He had a CTA last admission which did not show a central pulmonary emboli however remainder were suboptimally assessed due to artifact. After discharge he started getting worse again with increasing shortness of breath, ongoing fevers, productive cough. His cough is better now that he cannot wear his CPAP at night. Overnight he was unable to get much sleep due to the coughing therefore decided to come to the ER today. He also notes diarrhea for the last 2 days since he was discharged. Non-watery. No abdominal pain, nausea, vomiting, melena, bright red blood in stool. In the ER he was noted to be significantly hypoxic even on high flow oxygen level was placed briefly on BiPAP. The patient was back on 70% FiO2 high flow oxygen when seen. Chest x-ray concerning for worsening multifocal pneumonia. He was tachycardic and diaphoretic with fever 38.1C. He was referred to medicine for ongoing management of his acute hypoxic respiratory failure on high flow, COVID-19. Allergies Allergy/AdvReac Type Severity Reaction Status Date / Time No Known Allergies Allergy Verified 06/19/20 16:18 Home Medications Home Medications Medication Instructions Recorded Confirmed Type atorvastatin 10 mg PO DAILY 06/16/20 06/19/20 History clindamycin phosphate 1 applic TOPICAL BID PRN 06/16/20 06/19/20 History doxycycline monohydrate 100 mg PO BID 06/16/20 06/19/20 History lisinopril 10 mg PO DAILY 06/16/20 06/19/20 History metformin 1,000 mg PO BIDM 06/16/20 06/19/20 History pseudoephedrine-guaifenesin 1 tab PO UD PRN 06/16/20 06/19/20 History [Mucinex D Maximum Strength] Past Med/Surg History Medical History Acute bronchitis Anxiety Diarrhea Dizziness Elevated TSH GERD (gastroesophageal reflux disease) Hypertension IBS (irritable bowel syndrome) Migraine Nausea Sleep apnea CPAP Transaminitis Unspecified sleep apnea Viral URI Vomiting Surgical History No history of previous surgery Family History Grandfather Family history of diabetes mellitus MATERNAL Other Gallbladder disease Heart disease Social History Smoking Status: Never smoker Second Hand Exposure: No; Hx Alcohol Use: No Hx Substance Use: No Preferred Language: Ukrainian Communication Ability: Effective Costume Cutter Required: No Beliefs That Will Affect Care: None Current Living Situation: Family Current Living Situation Comment: LIVES WITH GIRLFRIEND Other Information That Helps Us Care for You: No Feels Safe at Home: Yes Safety Concerns: Feels Safe At This Time Assistive Devices: CPAP Review of Systems Review of Systems: All systems reviewed & are unremarkable except as noted in HPI & below Constitutional: + fever, + chills, + body aches and + weakness Eyes: no problem reported Ear, Nose, Mouth, Throat: no nasal congestion and no post nasal drip Gastrointestinal: + diarrhea/loose stools; no abdominal pain, no nausea and no vomiting Genitourinary: no problem reported Physical Exam Constitutional: well developed, + ill appearing (Diaphoretic) and + morbidly obese; + not well nourished and no acute distress Eyes: + anicteric sclerae; normal pupil size Neck: trachea midline Respiratory: + respiratory distress, + labored breathing, + retractions, + uses accessory muscles, + cough and + tachypneic; + not able to speak in complete sentence, expiratory phase not prolonged, no audible wheezes and no stridor Auscultation: + diminished lung sounds (Throughout) and + rhonchi (Diffuse); no crackles, no rales and no wheezes Cardiovascular: Rate/Rhythm: regular rhythm and + tachycardic Heart Sounds: no murmur Extremities: normal capillary refill and + pedal edema (Trace ankles bilaterally equal); no calf tenderness Musculoskeletal: no cyanosis or clubbing, extremities motor strength 5/5 Skin: no rashes, warm and dry Neurologic: moves all extremities, awake and + confused Psychiatric: A+Ox3, euthymic affect Genitourinary: no CVA tenderness Results & Data Results & Data ([facility]) Vital Signs (Past 12 Hours) Vital Signs Temp Pulse Pulse Resp BP Pulse Ox 06/19/20 17:00 125 H 23 94 06/19/20 16:30 126 H 32 H 94 06/19/20 16:00 125 H 33 H 95 06/19/20 15:40 22 95 06/19/20 15:30 126 H 95 06/19/20 15:29 128 H 96 06/19/20 15:06 127 H 28 H 95 06/19/20 14:30 36.8 C 132 H 24 168/73 H 81 L Code Status & VTE Plan Code Status Full VTE Prophylaxis Plan VTE Prophylaxis will be ordered: Yes PG Care Time/CCT Total # of Minutes Spent Total Time Spent with Patient: Total time spent is greater than 50% in coordination of care (as documented) at patient's floor/unit and/or counseling patient: Coding Level of Care Code 80761 Initial Inpt Care Lvl 3 Diagnoses Sepsis A41.9 Respiratory failure, acute J96.01 Respiratory failure complication: hypoxia COVID-19 U07.1 Multifocal pneumonia J18.9 DM type 2 (diabetes mellitus, type 2) E11.9 Acne L70.9 DVT prophylaxis Z29.9 (1) Respiratory failure, acute Respiratory failure complication: hypoxia Qualified Code(s): J96.01 - Acute respiratory failure with hypoxia
[2020-06-19] MEDS ORDERED: CEFEPIME CONSULT ACTIVE PRN (22:26)
[2020-06-19] MEDS ORDERED: ACETAMINOPHEN 325 MG TAB PO PRN (22:26)
[2020-06-19] MEDS ORDERED: ALUMINUM/MAGNESIUM SUSP 30 ML UDC PO PRN (22:26)
[2020-06-19] MEDS ORDERED: ONDANSETRON INJ 2 MG/ML 2 ML VIAL IV PRN (22:26)
[2020-06-19] MEDS ORDERED: POLYETHYLENE (MIRALAX) 17 GM PACK PO PRN (22:26)
[2020-06-19] MEDS ORDERED: PHARMACY GLYCEMIC MGMT CONSULT PRN (22:40)
[2020-06-19] MEDS ORDERED: PATIENT'S HEIGHT AND/OR WEIGHT NEEDED SCH (22:45)
[2020-06-19] MEDS: ENOXAPARIN INJ 40 MG/0.4 ML SYR SQ SCH (23:17)
[2020-06-19] MEDS ORDERED: REMDESIVIR 200 MG in SODIUM CHLORIDE 0.9% 210 ML IV SCH (23:30)
[2020-06-20] MEDS ORDERED: DEXTROSE 50% 50 ML SYRINGE IV PRN (01:15)
[2020-06-20] MEDS ORDERED: GLUCAGON FOR INJ 1 MG VIAL SQ PRN (01:15)
[2020-06-20] MEDS ORDERED: CARBOHYDRATES FOR HYPOGLYCEMIA PO PRN (01:15)
[2020-06-20] MEDS ORDERED: GLUCOSE 40% GEL 15 GM TUBE PO PRN (01:15)
[2020-06-20] MEDS ORDERED: GLUCOSE 10 TABS/TUBE PO PRN (01:15)
[2020-06-20] MEDS: INSULIN ASPART 100 UNITS/ML 3 ML PEN SC SCH ×5 (02:05→21:28)
[2020-06-20] MEDS: SODIUM CHLORIDE 0.9% 10ML FLUSH IV SCH ×2 (02:31→22:31)
[2020-06-20 02:43] LABS: Appearance Urine Cloudy (Clear); Bilirubin Urine Negative (Negative); Blood Urine 3+ (Negative); Color Urine Dark Yellow; Epithelial Cell Urine Auto >30 /lpf (0-5); Glucose Urine UA 2+ (Negative); Ketones Urine 2+ (Negative); Leukocyte Esterase Urine Negative (Negative); Nitrite Urine Negative (Negative); Protein Urine 3+ (Negative); RBC Urine Automated 0-4 /hpf (0-4); Urobilinogen Urine Negative (Negative)
[2020-06-20 02:44] LABS: Influenza A virus by PCR Negative (Negative); Influenza B virus by PCR Negative (Negative)
[2020-06-20 03:12] LABS: Bacteria Urine Automated 1+ (Negative); Mucus Urine Present (None Prsent)
[2020-06-20 03:13] LABS: Cast Urine Automated 0 /lpf (0-5)
[2020-06-20] MEDS ORDERED: VANCOMYCIN HCL 1,500 MG in SODIUM CHLORIDE 0.9% 500 ML IV SCH (04:00)
[2020-06-20] MEDS: CEFEPIME 2,000 MG in SYRINGE 0 ML IV SCH ×3 (04:21→21:07)
[2020-06-20] MEDS: ATORVASTATIN 10 MG TAB PO SCH (08:13)
[2020-06-20] MEDS: DEXAMETHASONE SOD PHOSPHATE 6 MG in SYRINGE 0 ML IV SCH (08:13)
[2020-06-20] MEDS: ENOXAPARIN INJ 40 MG/0.4 ML SYR SQ SCH ×2 (08:13→21:08)
[2020-06-20 08:14] LABS: Basophils # (auto) 0.01 K/uL (0-0.2); Basophils % (auto) 0.1 %; Hemoglobin 11.1 g/dL (14.0-18.0); Immature Granulocytes # (auto) 0.02 K/uL (0.00-0.02); Immature Granulocytes % (auto) 0.3 %; Lymphocytes # (auto) 0.52 K/uL (1.2-3.4); Lymphocytes % (auto) 6.6 %; Mean Corpuscular Hemoglobin 27.7 pg (25-34); Mean Corpuscular Hgb Conc 32.6 g/dL (32-36); Mean Corpuscular Volume 84.8 fL (80-100); Mean Platelet Volume 10.8 fL (7.4-10.4); Monocytes # (auto) 0.24 K/uL (0.11-0.59); Monocytes % (auto) 3.1 %; Neutrophils # (auto) 7.04 K/uL (1.4-6.5); Neutrophils % (auto) 89.9 %; Platelet Count 154 K/uL (130-400); RDW Coefficient of Variation 15.2 % (11.5-14.5); RDW Standard Deviation 47.6 fL (36.4-46.3); Red Blood Count 4.01 M/uL (4.7-6.1); White Blood Count 7.83 K/uL (4.8-10.8)
[2020-06-20] MEDS: AZITHROMYCIN 500 MG in DEXTROSE 5% 250 ML IV SCH (08:14)
[2020-06-20 08:39] LABS: Alanine Aminotransferase 59 U/L (12-78); Albumin Level 2.4 gm/dl (3.4-5.0); Aspartate Aminotransferase 82 U/L (15-37); BUN Creatinine Ratio 15.6 (10-20); Blood Urea Nitrogen 10 mg/dl (7-18); Calcium 8.5 mg/dl (8.5-10.1); Carbon Dioxide 27 mmol/L (21-32); Chloride 101 mmol/L (98-107); Creatinine Clr Calc Pharmacy 267.6 ml/min; Est GFR (African American) > 150.0; Est GFR (Non-African American) 133.1; Glucose 208 mg/dl (70-99); Potassium 3.4 mmol/L (3.5-5.1); Sodium 135 mmol/L (136-145)
[2020-06-20 08:48] LABS: D Dimer 1260 ug/L FEU (0-500)
[2020-06-20 08:54] LABS: Albumin Globulin Ratio 0.5 (0.9-2); Alkaline Phosphatase 67 U/L (45-117); Bilirubin,Total 0.5 mg/dl (0.2-1); C Reactive Protein 7.62 mg/dl (0-0.29); Creatine Kinase 2037 U/L (39-308); Globulin 5.2 gm/dl (2.5-4.0); Total Protein 7.6 gm/dl (6.4-8.2); Troponin I < 0.015 ng/ml (0-0.045)
[2020-06-20] MEDS ORDERED: DEXAMETHASONE SOD INJ 10 MG/ML VIAL IV SCH (09:00)
[2020-06-20] MEDS: INSULIN GLARGINE SOLOSTAR 100 UNITS/ML 3 ML PEN SC SCH ×2 (09:21→21:28)
--- NOTE | 2020-06-20 10:40 | Electrocardiogram Report ---
Test Reason : Blood Pressure : / mmHG Vent. Rate : 123 BPM Atrial Rate : 123 BPM P-R Int : 128 ms QRS Dur : 102 ms QT Int : 316 ms P-R-T Axes : 056 020 042 degrees QTc Int : 452 ms Sinus tachycardia Otherwise normal ECG When compared with ECG of 17-JUN-2020 12:00, No significant change was found Confirmed by Bandar Jimenez ([id number]) on 06/20/2020 10:40:08 AM Referred By: REFERRED SELF Confirmed By:Bandar Jimenez
--- NOTE | 2020-06-20 14:08 | Pharmacy Report ---
Pharmacy Glycemic Short Note 2 - Date of Service June 20, 2020 - Glycemic Short BSG Results (Last 24 hours): 06/19/20 06/20/20 06/20/20 15:40 01:12 07:51 Glucose 192 H POC Glucose 210 H 230 H 06/20/20 06/20/20 08:00 11:21 Glucose 208 H POC Glucose 225 H OUTPATIENT ANTIDIABETIC REGIMEN: * Metformin 1000mg BIDM * A1c:8.1% 06/16/20 ASSESSMENT: * Patient admitted for SOB related to COVID-19. It appears he is only on metformin at home but does appear to be experiencing dexamethasone induced hyperglycemia. Given his high BMI, dosing was initiated using a high stress, adjusted body weight based regimen. Will continue to assess need for adjustments. He is tolerating a diet. PLAN FOR INPATIENT GLYCEMIC CONTROL: * Hold outpatient oral diabetes medications * Basal insulin * Lantus 30 units SQ BID * Bolus insulin * NovoLog per scale ACHS or Q6hrs while NPO * Goal Range: Low 110 mg/dL - High 140 mg/dL * Correction Factor: 15 mg/dL/unit * Nutritional / Prandial insulin per carb ratio of 1 unit per 5 grams CHO consumed
--- NOTE | 2020-06-20 16:12 | Hospitalist Progress Note ---
Date of Service June 20, 2020 Assessment & Plan (1) Sepsis: Secondary to COVID-19 +/- multifocal bacterial pneumonia as below. Lactate 1.7 - no fluids needed Follow up blood cultures - no growth Broad-spectrum antibiotics as below for 5 days to cover bacterial pneumonia (2) Respiratory failure, acute: Hypoxic, no CO2 retention on ABG Aim O2 sats > 90% currently on HFNC 35L 70% discussed laying prone at night, he says he cannot sleep on his stomach, he is requesting to use BIPAP, says it makes his breathing easier at night (3) COVID-19: plan for Dexamethasone 10 days, Remdesivir 5 days, received plasma on 06/20 Zinc 220mg daily currently with pneumonia, hypoxia (4) Multifocal pneumonia: suspect the reason for his acute worsening is a bacterial pneumonia on top of COVID-19. Will treat with broad spectrum antibiotics cefepime and azithromycin WBC is normal, plan for 5 days of antibiotics (5) DM type 2 (diabetes mellitus, type 2): HbA1C 8.1 [06/16/20] Consult pharmacy for glycemic control with basal bolus insulin and coverage for dexamethasone dosing has hyperglycemia today (6) Acne: Hold doxycycline while on antibiotics above (7) DVT prophylaxis: Given increased hypercoagulable state with COVID-19 will treat with Lovenox 40mg SQ BID Admission and Anticipated Discharge Date Admission Date: June 19, 2020 Subjective patient not from this area, he lives in [facility] he was visiting family/friends here and working on deliveries for [employer] he started to get sick on 06/13 and was tested positive on 06/14 he was subsequently admitted but was sent home when he was not requiring oxygen and was breathing comfortably he says he rapidly deteriorated at home, came back with dyspnea and hypoxia today he says he feels okay on the HFNC, he is on 35L and 70%, saturations > 90% RR is in the 20's, I discussed with him my recommendation for laying prone, he says he cannot sleep on his stomach, he wants to use the BIPAP is possible, makes him more comfortable reviewed labs, WBC 7k, Hb 11, plts 154k, D dimer 1260, K 3.4 and Cr is 0.6 he is getting plasma while I am in the room discussed with him that he needs to eat and stay well hydrated discussed expectations, he will be hospitalized for a few days to a week Review of Systems Review of Systems: All systems reviewed & are unremarkable except as noted in Subjective Constitutional: + sweats, + fatigue and + weakness; no fever and no chills Respiratory: + cough and + dyspnea Cardiovascular: no chest pain, no syncope and no edema Gastrointestinal: no abdominal pain, no nausea, no vomiting, no constipation and no diarrhea/loose stools Physical Exam Constitutional: well developed, + ill appearing, + morbidly obese and + diaphoretic; no acute distress Neck: trachea midline, no thyromegaly Respiratory: + labored breathing, + uses accessory muscles, + cough and + tachypneic Cardiovascular: Rate/Rhythm: regular rhythm and + tachycardic Heart Sounds: normal S1 and normal S2; no murmur Vessels: no JVD Extremities: normal capillary refill; no edema Gastrointestinal (Abdomen): normal bowel sounds, soft, nontender, no hepatosplenomegaly Musculoskeletal: no cyanosis or clubbing, extremities motor strength 5/5 Skin: no rashes, warm and dry Neurologic: patellar DTR's 2+ bilat, sensation intact and PERRL, EOMI, accommodation nl, no face palsy, no dysarthria Psychiatric: A+Ox3, euthymic affect Lymphatic: no cervical or axillary lymphadenopathy Results & Data Results & Data ([facility]) Vital Signs (Past 12 Hours) Vital Signs Temp Pulse Pulse Resp BP BP Pulse Ox 06/20/20 15:52 108 H 24 94 06/20/20 14:27 37.4 C 107 H 22 135/79 93 06/20/20 13:34 37.8 C H 114 H 22 142/69 H 92 06/20/20 12:34 37.7 C H 112 H 22 147/79 H 92 06/20/20 12:04 37.8 C H 111 H 22 145/81 H 92 06/20/20 11:49 37.7 C H 115 H 22 149/80 H 93 06/20/20 11:34 37.7 C H 109 H 22 140/83 93 06/20/20 11:26 37.7 C H 109 H 22 140/83 93 06/20/20 11:19 113 H 26 H 93 06/20/20 07:49 37.4 C 106 H 19 146/81 H 93 06/20/20 07:22 117 H 22 93 Laboratory Results Laboratory Results - last 24 hr 06/19/20 06/19/20 06/19/20 15:01 15:01 15:40 WBC RBC Hgb Hct MCV MCH MCHC RDW Std Deviation RDW Coeff of Brittany Plt Count MPV Immature Gran % (Auto) Neut % (Auto) Lymph % (Auto) [place] % (Auto) Eos % (Auto) Baso % (Auto) Neut # (Auto) Lymph # (Auto) [place] # (Auto) Eos # (Auto) Baso # (Auto) Immature Gran # (Auto) PT INR APTT PTT Ratio D-Dimer ABG pH 7.47 H ABG pCO2 36 ABG pO2 66 L ABG HCO3 26 H ABG O2 Saturation 93.4 ABG Base Excess 2.1 H Lamberto Test POS VBG pH VBG pCO2 VBG pO2 VBG HCO3 VBG O2 Saturation VBG Base Excess Barometric Pressure 733.3 Oxygen Given 60% Sodium Potassium Chloride Carbon Dioxide Anion Gap BUN Creatinine Est Cr Clr Drug Dosing Est GFR ( Amer) Est GFR (Non-Af Amer) BUN/Creatinine Ratio Glucose POC Glucose Lactate 1.7 Calcium Magnesium Total Bilirubin AST ALT Alkaline Phosphatase Lactate Dehydrogenase Total Creatine Kinase Troponin I C-Reactive Protein Total Protein Albumin Globulin Albumin/Globulin Ratio Procalcitonin 34.34 H Urine Color Urine Appearance Urine pH Ur Specific Avant Urine Protein Urine Glucose (UA) Urine Ketones Urine Blood Urine Nitrite Urine Bilirubin Urine Urobilinogen Ur Leukocyte Esterase Urine WBC (Auto) Urine RBC (Auto) U Hyaline Cast (Auto) U Epithel Cells (Auto) Urine Bacteria (Auto) Ur Renal Epithelial Cell Urine Mucus Nasal Screen MRSA (PCR) Influ A Molecular Assay Influ B Molecular Assay Blood Type Antibody Screen 06/19/20 06/19/20 06/19/20 15:40 15:40 15:40 WBC RBC Hgb Hct MCV MCH MCHC RDW Std Deviation RDW Coeff of Brittany Plt Count MPV Immature Gran % (Auto) Neut % (Auto) Lymph % (Auto) [place] % (Auto) Eos % (Auto) Baso % (Auto) Neut # (Auto) Lymph # (Auto) [place] # (Auto) Eos # (Auto) Baso # (Auto) Immature Gran # (Auto) PT 13.2 H INR 1.3 H APTT 27.9 PTT Ratio 1.0 D-Dimer ABG pH ABG pCO2 ABG pO2 ABG HCO3 ABG O2 Saturation ABG Base Excess Lamberto Test VBG pH VBG pCO2 VBG pO2 VBG HCO3 VBG O2 Saturation VBG Base Excess Barometric Pressure Oxygen Given Sodium 131 L Potassium 3.1 L Chloride 96 L Carbon Dioxide 28 Anion Gap 8.0 BUN 8 Creatinine 0.86 Est Cr Clr Drug Dosing Not Reportable Est GFR ( Amer) 134.9 Est GFR (Non-Af Amer) 116.4 BUN/Creatinine Ratio 9.5 L Glucose 192 H POC Glucose Lactate 2.2 H* Calcium 8.8 Magnesium 2.2 Total Bilirubin 0.8 AST 76 H ALT 69 Alkaline Phosphatase 73 Lactate Dehydrogenase Total Creatine Kinase Troponin I < 0.015 C-Reactive Protein Total Protein 8.0 Albumin 2.8 L Globulin 5.2 H Albumin/Globulin Ratio 0.5 L Procalcitonin Urine Color Urine Appearance Urine pH Ur Specific Avant Urine Protein Urine Glucose (UA) Urine Ketones Urine Blood Urine Nitrite Urine Bilirubin Urine Urobilinogen Ur Leukocyte Esterase Urine WBC (Auto) Urine RBC (Auto) U Hyaline Cast (Auto) U Epithel Cells (Auto) Urine Bacteria (Auto) Ur Renal Epithelial Cell Urine Mucus Nasal Screen MRSA (PCR) Influ A Molecular Assay Influ B Molecular Assay Blood Type Antibody Screen 06/19/20 06/19/20 06/20/20 17:32 17:42 01:12 WBC RBC Hgb Hct MCV MCH MCHC RDW Std Deviation RDW Coeff of Brittany Plt Count MPV Immature Gran % (Auto) Neut % (Auto) Lymph % (Auto) [place] % (Auto) Eos % (Auto) Baso % (Auto) Neut # (Auto) Lymph # (Auto) [place] # (Auto) Eos # (Auto) Baso # (Auto) Immature Gran # (Auto) PT INR APTT PTT Ratio D-Dimer ABG pH ABG pCO2 ABG pO2 ABG HCO3 ABG O2 Saturation ABG Base Excess Lamberto Test VBG pH 7.47 H VBG pCO2 37 L VBG pO2 43 VBG HCO3 26 VBG O2 Saturation 79.4 VBG Base Excess 2.8 Barometric Pressure 732.9 Oxygen Given Sodium Potassium Chloride Carbon Dioxide Anion Gap BUN Creatinine Est Cr Clr Drug Dosing Est GFR ( Amer) Est GFR (Non-Af Amer) BUN/Creatinine Ratio Glucose POC Glucose 210 H Lactate Calcium Magnesium Total Bilirubin AST ALT Alkaline Phosphatase Lactate Dehydrogenase Total Creatine Kinase Troponin I C-Reactive Protein Total Protein Albumin Globulin Albumin/Globulin Ratio Procalcitonin Urine Color Urine Appearance Urine pH Ur Specific Avant Urine Protein Urine Glucose (UA) Urine Ketones Urine Blood Urine Nitrite Urine Bilirubin Urine Urobilinogen Ur Leukocyte Esterase Urine WBC (Auto) Urine RBC (Auto) U Hyaline Cast (Auto) U Epithel Cells (Auto) Urine Bacteria (Auto) Ur Renal Epithelial Cell Urine Mucus Nasal Screen MRSA (PCR) Influ A Molecular Assay Influ B Molecular Assay Blood Type AB Positive Antibody Screen NEGATIVE 06/20/20 06/20/20 06/20/20 07:51 08:00 08:00 WBC 7.83 RBC 4.01 L Hgb 11.1 L Hct 34.0 L MCV 84.8 MCH 27.7 MCHC 32.6 RDW Std Deviation 47.6 H RDW Coeff of Brittany 15.2 H Plt Count 154 MPV 10.8 H Immature Gran % (Auto) 0.3 Neut % (Auto) 89.9 Lymph % (Auto) 6.6 [place] % (Auto) 3.1 Eos % (Auto) 0.0 Baso % (Auto) 0.1 Neut # (Auto) 7.04 H Lymph # (Auto) 0.52 L [place] # (Auto) 0.24 Eos # (Auto) 0.00 Baso # (Auto) 0.01 Immature Gran # (Auto) 0.02 PT INR APTT PTT Ratio D-Dimer 1260 H* ABG pH ABG pCO2 ABG pO2 ABG HCO3 ABG O2 Saturation ABG Base Excess Lamberto Test VBG pH VBG pCO2 VBG pO2 VBG HCO3 VBG O2 Saturation VBG Base Excess Barometric Pressure Oxygen Given Sodium Potassium Chloride Carbon Dioxide Anion Gap BUN Creatinine Est Cr Clr Drug Dosing Est GFR ( Amer) Est GFR (Non-Af Amer) BUN/Creatinine Ratio Glucose POC Glucose 230 H Lactate Calcium Magnesium Total Bilirubin AST ALT Alkaline Phosphatase Lactate Dehydrogenase Total Creatine Kinase Troponin I C-Reactive Protein Total Protein Albumin Globulin Albumin/Globulin Ratio Procalcitonin Urine Color Urine Appearance Urine pH Ur Specific Avant Urine Protein Urine Glucose (UA) Urine Ketones Urine Blood Urine Nitrite Urine Bilirubin Urine Urobilinogen Ur Leukocyte Esterase Urine WBC (Auto) Urine RBC (Auto) U Hyaline Cast (Auto) U Epithel Cells (Auto) Urine Bacteria (Auto) Ur Renal Epithelial Cell Urine Mucus Nasal Screen MRSA (PCR) Influ A Molecular Assay Influ B Molecular Assay Blood Type Antibody Screen 06/20/20 06/20/20 06/20/20 08:00 08:00 11:21 WBC RBC Hgb Hct MCV MCH MCHC RDW Std Deviation RDW Coeff of Brittany Plt Count MPV Immature Gran % (Auto) Neut % (Auto) Lymph % (Auto) [place] % (Auto) Eos % (Auto) Baso % (Auto) Neut # (Auto) Lymph # (Auto) [place] # (Auto) Eos # (Auto) Baso # (Auto) Immature Gran # (Auto) PT INR APTT PTT Ratio D-Dimer ABG pH ABG pCO2 ABG pO2 ABG HCO3 ABG O2 Saturation ABG Base Excess Lamberto Test VBG pH VBG pCO2 VBG pO2 VBG HCO3 VBG O2 Saturation VBG Base Excess Barometric Pressure Oxygen Given Sodium 135 L Potassium 3.4 L Chloride 101 Carbon Dioxide 27 Anion Gap 7.0 BUN 10 Creatinine 0.62 Est Cr Clr Drug Dosing 267.6 Est GFR ( Amer) > 150.0 Est GFR (Non-Af Amer) 133.1 BUN/Creatinine Ratio 15.6 Glucose 208 H POC Glucose 225 H Lactate Calcium 8.5 Magnesium Total Bilirubin 0.5 AST 82 H ALT 59 Alkaline Phosphatase 67 Lactate Dehydrogenase 408 H Total Creatine Kinase 2037 H Troponin I < 0.015 C-Reactive Protein 7.62 H Total Protein 7.6 Albumin 2.4 L Globulin 5.2 H Albumin/Globulin Ratio 0.5 L Procalcitonin Urine Color Urine Appearance Urine pH Ur Specific Avant Urine Protein Urine Glucose (UA) Urine Ketones Urine Blood Urine Nitrite Urine Bilirubin Urine Urobilinogen Ur Leukocyte Esterase Urine WBC (Auto) Urine RBC (Auto) U Hyaline Cast (Auto) U Epithel Cells (Auto) Urine Bacteria (Auto) Ur Renal Epithelial Cell Urine Mucus Nasal Screen MRSA (PCR) Influ A Molecular Assay Influ B Molecular Assay Blood Type Antibody Screen 06/20/20 06/20/20 06/20/20 Unknown Unknown Unknown WBC RBC Hgb Hct MCV MCH MCHC RDW Std Deviation RDW Coeff of Brittany Plt Count MPV Immature Gran % (Auto) Neut % (Auto) Lymph % (Auto) [place] % (Auto) Eos % (Auto) Baso % (Auto) Neut # (Auto) Lymph # (Auto) [place] # (Auto) Eos # (Auto) Baso # (Auto) Immature Gran # (Auto) PT INR APTT PTT Ratio D-Dimer ABG pH ABG pCO2 ABG pO2 ABG HCO3 ABG O2 Saturation ABG Base Excess Lamberto Test VBG pH VBG pCO2 VBG pO2 VBG HCO3 VBG O2 Saturation VBG Base Excess Barometric Pressure Oxygen Given Sodium Potassium Chloride Carbon Dioxide Anion Gap BUN Creatinine Est Cr Clr Drug Dosing Est GFR ( Amer) Est GFR (Non-Af Amer) BUN/Creatinine Ratio Glucose POC Glucose Lactate Calcium Magnesium Total Bilirubin AST ALT Alkaline Phosphatase Lactate Dehydrogenase Total Creatine Kinase Troponin I C-Reactive Protein Total Protein Albumin Globulin Albumin/Globulin Ratio Procalcitonin Urine Color Dark Yellow Urine Appearance Cloudy A Urine pH 6.0 Ur Specific Avant 1.030 Urine Protein 3+ H Urine Glucose (UA) 2+ H Urine Ketones 2+ H Urine Blood 3+ H Urine Nitrite Negative Urine Bilirubin Negative Urine Urobilinogen Negative Ur Leukocyte Esterase Negative Urine WBC (Auto) 1-5 Urine RBC (Auto) 0-4 U Hyaline Cast (Auto) 0 U Epithel Cells (Auto) >30 H Urine Bacteria (Auto) 1+ H Ur Renal Epithelial Cell Not Reportable Urine Mucus Present A Nasal Screen MRSA (PCR) Negative Influ A Molecular Assay Negative Influ B Molecular Assay Negative Blood Type Antibody Screen Medications Administered Current Inpatient Medications Acetaminophen (Acetaminophen 325 Mg Tab) 650 mg PO Q4H PRN PRN Reason: Pain or Fever Stop: 07/19/20 22:25 Al Hydrox/Mg Hydrox/Simethicone (Aluminum/Magnesium Susp 30 Ml Udc) 15 ml PO Q4H PRN PRN Reason: Dyspepsia Stop: 07/19/20 22:25 Atorvastatin Calcium (Atorvastatin 10 Mg Tab) 10 mg PO DAILY DAVID Stop: 07/20/20 08:59 Last Admin: 06/20/20 08:13 Dose: 10 mg Documented by: Dextrose (Dextrose 50% 50 Ml Syringe) 25 - 50 ml IV UD PRN; Protocol PRN Reason: Hypoglycemia Protocol Stop: 07/20/20 01:14 Enoxaparin Sodium (Enoxaparin Inj 40 Mg/0.4 Ml Syr) 40 mg SQ Q12 DAVID Stop: 07/19/20 22:25 Last Admin: 06/20/20 08:13 Dose: 40 mg Documented by: Glucagon (Glucagon For Inj 1 Mg Vial) 1 mg SQ UD PRN; Protocol PRN Reason: Hypoglycemia Protocol Stop: 07/20/20 01:14 Glucose (Glucose 40% Gel 15 Gm Tube) 15 - 30 gm PO UD PRN; Protocol PRN Reason: Hypoglycemia Protocol Stop: 07/20/20 01:14 Glucose (Glucose 10 Tabs/Tube) 4 - 8 tabs PO UD PRN; Protocol PRN Reason: Hypoglycemia Protocol Stop: 07/20/20 01:14 Azithromycin 500 mg/ Dextrose 255 mls @ 125 mls/hr IV QAM [facility] Stop: 06/23/20 11:03 Last Infusion: 06/20/20 12:20 Dose: Infused Documented by: Remdesivir 100 mg/ Sodium (Chloride) 250 mls @ 250 mls/hr IV Q24H [facility]; Protocol Stop: 06/23/20 22:59 Dexamethasone Sodium Phosphate (6 mg/ Syringe) 1.5 mls @ 1 mls/min IV QAM [facility] Stop: 07/20/20 08:59 Last Admin: 06/20/20 08:13 Dose: 1 mls/min Documented by: Cefepime HCl 2,000 mg/ Syringe 20 mls @ 5 mls/min IV Q8H [facility] Stop: 06/27/20 03:59 Last Admin: 06/20/20 11:37 Dose: 5 mls/min Documented by: Insulin Aspart (Insulin Aspart 100 Units/Ml 3 Ml Pen) 0 units SC ACHS [facility] Stop: 07/20/20 01:14 Last Admin: 06/20/20 12:27 Dose: 10 units Documented by: Insulin Glargine (Insulin Glargine Solostar 100 Units/Ml 3 Ml Pen) 30 units SC BID [facility] Stop: 07/20/20 08:59 Last Admin: 06/20/20 09:21 Dose: 30 units Documented by: Miscellaneous (Carbohydrates For Hypoglycemia ) 15 - 30 gm PO UD PRN PRN Reason: Hypoglycemia Treatment Stop: 07/20/20 01:14 Miscellaneous Information (Cefepime Consult Active) 1 ea N/A UD PRN PRN Reason: Consult Stop: 07/19/20 22:25 Miscellaneous Information (Pharmacy Glycemic Mgmt Consult) 1 ea N/A UD PRN PRN Reason: Consult Stop: 07/19/20 22:39 Ondansetron HCl (Ondansetron Inj 2 Mg/Ml 2 Ml Vial) 4 mg IV Q6H PRN PRN Reason: Nausea Stop: 07/19/20 22:25 Polyethylene Glycol (Polyethylene (Miralax) 17 Gm Pack) 17 gm PO DAILY PRN PRN Reason: Constipation Stop: 07/19/20 22:25 Potassium Chloride (Potassium Chloride 20 Meq Tabcr) 20 meq PO TID DAVID Stop: 07/20/20 20:59 Sodium Chloride (Sodium Chloride 0.9% 10ml Flush) 30 ml IV Q24H DAVID Stop: 06/23/20 23:31 Last Admin: 06/20/20 02:31 Dose: 30 ml Documented by: PG Care Time/CCT Total # of Minutes Spent Total Time Spent with Patient: Total time spent is greater than 50% in coordination of care (as documented) at patient's floor/unit and/or counseling patient: Coding Level of Care Code 64271 Subseq Hosp Care Lvl 3 Diagnoses Sepsis A41.9 Respiratory failure, acute J96.01 Respiratory failure complication: hypoxia COVID-19 U07.1 Multifocal pneumonia J18.9 DM type 2 (diabetes mellitus, type 2) E11.9 Acne L70.9 DVT prophylaxis Z29.9 (1) Respiratory failure, acute Respiratory failure complication: hypoxia Qualified Code(s): J96.01 - Acute respiratory failure with hypoxia
[2020-06-20] MEDS: REMDESIVIR 100 MG in SODIUM CHLORIDE 0.9% 230 ML IV SCH (21:10)
[2020-06-20] MEDS: POTASSIUM CHLORIDE CRTAB 20 MEQ TABCR PO SCH (21:10)
[2020-06-21] MEDS: CEFEPIME 2,000 MG in SYRINGE 0 ML IV SCH ×3 (05:30→19:58)
[2020-06-21 06:32] LABS: Hematocrit (blood only) 36.9 % (42-52); Hemoglobin 11.7 g/dL (14.0-18.0); Mean Corpuscular Hemoglobin 27.6 pg (25-34); Mean Corpuscular Hgb Conc 31.7 g/dL (32-36); Platelet Count 211 K/uL (130-400); RDW Coefficient of Variation 15.4 % (11.5-14.5); RDW Standard Deviation 49.3 fL (36.4-46.3); Red Blood Count 4.24 M/uL (4.7-6.1); White Blood Count 6.51 K/uL (4.8-10.8)
[2020-06-21 07:05] LABS: Albumin Level 2.4 gm/dl (3.4-5.0); BUN Creatinine Ratio 20.1 (10-20); Calcium 8.9 mg/dl (8.5-10.1); Creatinine Clr Calc Pharmacy 233.7 ml/min; Est GFR (African American) 145.9; Est GFR (Non-African American) 125.9; Potassium 3.7 mmol/L (3.5-5.1)
[2020-06-21 07:08] LABS: Albumin Globulin Ratio 0.4 (0.9-2); Bilirubin,Total 0.5 mg/dl (0.2-1); Globulin 5.4 gm/dl (2.5-4.0); Total Protein 7.8 gm/dl (6.4-8.2)
[2020-06-21] MEDS: DEXAMETHASONE SOD PHOSPHATE 6 MG in SYRINGE 0 ML IV SCH (07:48)
[2020-06-21] MEDS: ENOXAPARIN INJ 40 MG/0.4 ML SYR SQ SCH ×2 (07:49→21:18)
[2020-06-21] MEDS: ATORVASTATIN 10 MG TAB PO SCH (07:49)
[2020-06-21] MEDS: AZITHROMYCIN 500 MG in DEXTROSE 5% 250 ML IV SCH (07:50)
[2020-06-21] MEDS: POTASSIUM CHLORIDE CRTAB 20 MEQ TABCR PO SCH ×3 (08:01→21:18)
--- NOTE | 2020-06-21 08:05 | Hospitalist Progress Note ---
Date of Service June 21, 2020 Assessment & Plan (1) Sepsis: Secondary to COVID-19 +/- multifocal bacterial pneumonia as below. Lactate 1.7 - no fluids needed Follow up blood cultures - no growth Broad-spectrum antibiotics as below for 5 days to cover bacterial pneumonia sepsis is resolved (2) Respiratory failure, acute: Hypoxic, no CO2 retention on ABG Aim O2 sats > 90% currently on HFNC but improving, down to 55% FiO2 at 35L discussed laying prone at night, he says he cannot sleep on his stomach, he is requesting to use BIPAP, says it makes his breathing easier at night (3) COVID-19: plan for Dexamethasone 10 days, Remdesivir 5 days, received plasma on 06/20 Zinc 220mg daily currently with pneumonia, hypoxia is improving he is eating and drinking well (4) Multifocal pneumonia: suspect the reason for his acute worsening is a bacterial pneumonia on top of COVID-19. Will treat with broad spectrum antibiotics cefepime and azithromycin WBC is normal, no fever, minimal cough, plan for 5 days of antibiotics (5) DM type 2 (diabetes mellitus, type 2): HbA1C 8.1 [06/16/20] Consult pharmacy for glycemic control with basal bolus insulin and coverage for dexamethasone dosing has hyperglycemia today, no hypoglycemia (6) Acne: Hold doxycycline while on antibiotics above (7) DVT prophylaxis: Given increased hypercoagulable state with COVID-19 will treat with Lovenox 40mg SQ BID Admission and Anticipated Discharge Date Admission Date: June 19, 2020 Subjective patient is breathing better today, less oxygen requirements he continues to eat well, he is making urine and he had a BM he denies fever/chills, he is very sweaty all the time he denies chest pain reviewed labs, WBC normal, BMP normal Review of Systems Review of Systems: All systems reviewed & are unremarkable except as noted in Subjective Physical Exam Constitutional: well developed, + morbidly obese and + diaphoretic; no acute distress Neck: trachea midline, no thyromegaly Respiratory: + cough and + tachypneic; no respiratory distress Cardiovascular: Rate/Rhythm: regular rhythm and + tachycardic Heart Sounds: normal S1 and normal S2; no murmur Vessels: no JVD Extremities: normal capillary refill; no edema Gastrointestinal (Abdomen): normal bowel sounds, soft, nontender, no hepatosplenomegaly Musculoskeletal: no cyanosis or clubbing, extremities motor strength 5/5 Skin: no rashes, warm and dry Neurologic: patellar DTR's 2+ bilat, sensation intact and PERRL, EOMI, accommodation nl, no face palsy, no dysarthria Psychiatric: A+Ox3, euthymic affect Lymphatic: no cervical or axillary lymphadenopathy Results & Data Results & Data ([facility]) Vital Signs (Past 12 Hours) Vital Signs Temp Pulse Pulse Resp BP BP Pulse Ox 06/21/20 07:46 36.9 C 98 H 22 126/74 91 06/21/20 07:24 74 19 92 06/21/20 04:00 36.8 C 105 H 20 149/84 H 97 06/21/20 02:34 103 H 26 H 92 06/21/20 00:00 102 H 06/20/20 23:59 36.8 C 105 H 20 153/98 H 97 06/20/20 23:45 103 H 30 H 96 06/20/20 22:26 06/20/20 21:30 107 H 34 H 96 06/20/20 21:20 108 H 35 H 153/98 H 97 06/20/20 21:00 108 H 15 96 06/20/20 20:58 109 H 24 94 06/20/20 20:55 107 H 20 158/96 H 06/20/20 20:54 94 06/20/20 20:45 36.8 C Pulse Ox 06/21/20 07:46 06/21/20 07:24 06/21/20 04:00 06/21/20 02:34 06/21/20 00:00 06/20/20 23:59 06/20/20 23:45 06/20/20 22:26 98 06/20/20 21:30 06/20/20 21:20 06/20/20 21:00 06/20/20 20:58 06/20/20 20:55 06/20/20 20:54 06/20/20 20:45 Laboratory Results Laboratory Results - last 24 hr 06/19/20 06/20/20 06/20/20 17:42 08:00 08:00 WBC 7.83 RBC 4.01 L Hgb 11.1 L Hct 34.0 L MCV 84.8 MCH 27.7 MCHC 32.6 RDW Std Deviation 47.6 H RDW Coeff of Brittany 15.2 H Plt Count 154 MPV 10.8 H Immature Gran % (Auto) 0.3 Neut % (Auto) 89.9 Lymph % (Auto) 6.6 [place] % (Auto) 3.1 Eos % (Auto) 0.0 Baso % (Auto) 0.1 Neut # (Auto) 7.04 H Lymph # (Auto) 0.52 L [place] # (Auto) 0.24 Eos # (Auto) 0.00 Baso # (Auto) 0.01 Immature Gran # (Auto) 0.02 D-Dimer 1260 H* Sodium Potassium Chloride Carbon Dioxide Anion Gap BUN Creatinine Est Cr Clr Drug Dosing Est GFR ( Amer) Est GFR (Non-Af Amer) BUN/Creatinine Ratio Glucose POC Glucose Calcium Total Bilirubin AST ALT Alkaline Phosphatase Lactate Dehydrogenase Total Creatine Kinase Troponin I C-Reactive Protein Total Protein Albumin Globulin Albumin/Globulin Ratio Blood Type AB Positive Antibody Screen NEGATIVE 06/20/20 06/20/20 06/20/20 08:00 08:00 11:21 WBC RBC Hgb Hct MCV MCH MCHC RDW Std Deviation RDW Coeff of Brittany Plt Count MPV Immature Gran % (Auto) Neut % (Auto) Lymph % (Auto) [place] % (Auto) Eos % (Auto) Baso % (Auto) Neut # (Auto) Lymph # (Auto) [place] # (Auto) Eos # (Auto) Baso # (Auto) Immature Gran # (Auto) D-Dimer Sodium 135 L Potassium 3.4 L Chloride 101 Carbon Dioxide 27 Anion Gap 7.0 BUN 10 Creatinine 0.62 Est Cr Clr Drug Dosing 267.6 Est GFR ( Amer) > 150.0 Est GFR (Non-Af Amer) 133.1 BUN/Creatinine Ratio 15.6 Glucose 208 H POC Glucose 225 H Calcium 8.5 Total Bilirubin 0.5 AST 82 H ALT 59 Alkaline Phosphatase 67 Lactate Dehydrogenase 408 H Total Creatine Kinase 2037 H Troponin I < 0.015 C-Reactive Protein 7.62 H Total Protein 7.6 Albumin 2.4 L Globulin 5.2 H Albumin/Globulin Ratio 0.5 L Blood Type Antibody Screen 06/20/20 06/20/20 06/21/20 17:01 21:12 05:28 WBC 6.51 RBC 4.24 L Hgb 11.7 L Hct 36.9 L MCV 87.0 MCH 27.6 MCHC 31.7 L RDW Std Deviation 49.3 H RDW Coeff of Brittany 15.4 H Plt Count 211 MPV 11.0 H Immature Gran % (Auto) Neut % (Auto) Lymph % (Auto) [place] % (Auto) Eos % (Auto) Baso % (Auto) Neut # (Auto) Lymph # (Auto) [place] # (Auto) Eos # (Auto) Baso # (Auto) Immature Gran # (Auto) D-Dimer Sodium Potassium Chloride Carbon Dioxide Anion Gap BUN Creatinine Est Cr Clr Drug Dosing Est GFR ( Amer) Est GFR (Non-Af Amer) BUN/Creatinine Ratio Glucose POC Glucose 250 H 193 H Calcium Total Bilirubin AST ALT Alkaline Phosphatase Lactate Dehydrogenase Total Creatine Kinase Troponin I C-Reactive Protein Total Protein Albumin Globulin Albumin/Globulin Ratio Blood Type Antibody Screen 06/21/20 06/21/20 05:28 07:42 WBC RBC Hgb Hct MCV MCH MCHC RDW Std Deviation RDW Coeff of Brittany Plt Count MPV Immature Gran % (Auto) Neut % (Auto) Lymph % (Auto) [place] % (Auto) Eos % (Auto) Baso % (Auto) Neut # (Auto) Lymph # (Auto) [place] # (Auto) Eos # (Auto) Baso # (Auto) Immature Gran # (Auto) D-Dimer Sodium 138 Potassium 3.7 Chloride 101 Carbon Dioxide 30 Anion Gap 7.0 BUN 14 Creatinine 0.71 Est Cr Clr Drug Dosing 233.7 Est GFR ( Amer) 145.9 Est GFR (Non-Af Amer) 125.9 BUN/Creatinine Ratio 20.1 H Glucose 183 H POC Glucose 180 H Calcium 8.9 Total Bilirubin 0.5 AST 93 H ALT 63 Alkaline Phosphatase 74 Lactate Dehydrogenase Total Creatine Kinase Troponin I C-Reactive Protein Total Protein 7.8 Albumin 2.4 L Globulin 5.4 H Albumin/Globulin Ratio 0.4 L Blood Type Antibody Screen Medications Administered Current Inpatient Medications Acetaminophen (Acetaminophen 325 Mg Tab) 650 mg PO Q4H PRN PRN Reason: Pain or Fever Stop: 07/19/20 22:25 Al Hydrox/Mg Hydrox/Simethicone (Aluminum/Magnesium Susp 30 Ml Udc) 15 ml PO Q4H PRN PRN Reason: Dyspepsia Stop: 07/19/20 22:25 Atorvastatin Calcium (Atorvastatin 10 Mg Tab) 10 mg PO DAILY DAVID Stop: 07/20/20 08:59 Last Admin: 06/21/20 07:49 Dose: 10 mg Documented by: Dextrose (Dextrose 50% 50 Ml Syringe) 25 - 50 ml IV UD PRN; Protocol PRN Reason: Hypoglycemia Protocol Stop: 07/20/20 01:14 Enoxaparin Sodium (Enoxaparin Inj 40 Mg/0.4 Ml Syr) 40 mg SQ Q12 DAVID Stop: 07/19/20 22:25 Last Admin: 06/21/20 07:49 Dose: 40 mg Documented by: Glucagon (Glucagon For Inj 1 Mg Vial) 1 mg SQ UD PRN; Protocol PRN Reason: Hypoglycemia Protocol Stop: 07/20/20 01:14 Glucose (Glucose 40% Gel 15 Gm Tube) 15 - 30 gm PO UD PRN; Protocol PRN Reason: Hypoglycemia Protocol Stop: 07/20/20 01:14 Glucose (Glucose 10 Tabs/Tube) 4 - 8 tabs PO UD PRN; Protocol PRN Reason: Hypoglycemia Protocol Stop: 07/20/20 01:14 Azithromycin 500 mg/ Dextrose 255 mls @ 125 mls/hr IV QAM [facility] Stop: 06/23/20 11:03 Last Admin: 06/21/20 07:50 Dose: 125 mls/hr Documented by: Remdesivir 100 mg/ Sodium (Chloride) 250 mls @ 250 mls/hr IV Q24H [facility]; Protocol Stop: 06/23/20 22:59 Last Infusion: 06/20/20 22:20 Dose: Infused Documented by: Dexamethasone Sodium Phosphate (6 mg/ Syringe) 1.5 mls @ 1 mls/min IV QAM [facility] Stop: 07/20/20 08:59 Last Admin: 06/21/20 07:48 Dose: 1 mls/min Documented by: Cefepime HCl 2,000 mg/ Syringe 20 mls @ 5 mls/min IV Q8H [facility] Stop: 06/27/20 03:59 Last Admin: 06/21/20 05:30 Dose: 5 mls/min Documented by: Insulin Aspart (Insulin Aspart 100 Units/Ml 3 Ml Pen) 0 units SC ACHS [facility] Stop: 07/20/20 01:14 Last Admin: 06/20/20 21:28 Dose: 4 units Documented by: Insulin Glargine (Insulin Glargine Solostar 100 Units/Ml 3 Ml Pen) 30 units SC BID [facility] Stop: 07/20/20 08:59 Last Admin: 06/20/20 21:28 Dose: 30 units Documented by: Insulin Human NPH (Novolin-N (Nph) Per Unit Charge) 30 units SQ QAM [facility] Stop: 06/21/20 09:01 Miscellaneous (Carbohydrates For Hypoglycemia ) 15 - 30 gm PO UD PRN PRN Reason: Hypoglycemia Treatment Stop: 07/20/20 01:14 Miscellaneous Information (Cefepime Consult Active) 1 ea N/A UD PRN PRN Reason: Consult Stop: 07/19/20 22:25 Miscellaneous Information (Pharmacy Glycemic Mgmt Consult) 1 ea N/A UD PRN PRN Reason: Consult Stop: 07/19/20 22:39 Ondansetron HCl (Ondansetron Inj 2 Mg/Ml 2 Ml Vial) 4 mg IV Q6H PRN PRN Reason: Nausea Stop: 07/19/20 22:25 Polyethylene Glycol (Polyethylene (Miralax) 17 Gm Pack) 17 gm PO DAILY PRN PRN Reason: Constipation Stop: 07/19/20 22:25 Potassium Chloride (Potassium Chloride 20 Meq Tabcr) 20 meq PO TID DAVID Stop: 07/20/20 20:59 Last Admin: 06/21/20 08:01 Dose: 20 meq Documented by: Sodium Chloride (Sodium Chloride 0.9% 10ml Flush) 30 ml IV Q24H [facility] Stop: 06/23/20 23:31 Last Admin: 06/20/20 22:31 Dose: 30 ml Documented by: PG Care Time/CCT Total # of Minutes Spent Total Time Spent with Patient: Total time spent is greater than 50% in coordination of care (as documented) at patient's floor/unit and/or counseling patient: Coding Level of Care Code 01553 Subseq Hosp Care Lvl 3 Diagnoses Sepsis A41.9 Respiratory failure, acute J96.01 Respiratory failure complication: hypoxia COVID-19 U07.1 Multifocal pneumonia J18.9 DM type 2 (diabetes mellitus, type 2) E11.9 Acne L70.9 DVT prophylaxis Z29.9 (1) Respiratory failure, acute Respiratory failure complication: hypoxia Qualified Code(s): J96.01 - Acute respiratory failure with hypoxia
[2020-06-21] MEDS: INSULIN GLARGINE SOLOSTAR 100 UNITS/ML 3 ML PEN SC SCH ×2 (08:09→21:33)
[2020-06-21] MEDS: INSULIN ASPART 100 UNITS/ML 3 ML PEN SC SCH ×4 (08:09→21:34)
[2020-06-21] MEDS ORDERED: NovoLIN-N (NPH) PER UNIT CHARGE SQ ONE (09:00)
--- NOTE | 2020-06-21 13:48 | Pharmacy Report ---
Pharmacy Glycemic Short Note 2 - Date of Service June 21, 2020 - Glycemic Short BSG Results (Last 24 hours): 06/20/20 06/20/20 06/21/20 17:01 21:12 05:28 Glucose 183 H POC Glucose 250 H 193 H 06/21/20 06/21/20 07:42 11:22 Glucose POC Glucose 180 H 228 H OUTPATIENT ANTIDIABETIC REGIMEN: * Metformin 1000mg BIDM * A1c:8.1% 06/16/20 ASSESSMENT: 06/21 * Patient received 97 units of insulin yesterday; 60 of basal, 37 of correctional/prandial * BSGs ranged from 210-250 mg/dL; Fasting this morning 180 mg/dL * Continues to receive dexamethasone 6 mg daily, will initiate NPH with dexameth asone, will give up to a total of 0.4 units/kg (ideal BW) divided BID (evening dose will be held if not needed) 06/20 * Patient admitted for SOB related to COVID-19. It appears he is only on metformin at home but does appear to be experiencing dexamethasone induced hyperglycemia. Given his high BMI, dosing was initiated using a high stress, adjusted body weight based regimen. Will continue to assess need for adjustments. He is tolerating a diet. PLAN FOR INPATIENT GLYCEMIC CONTROL: * Hold outpatient oral diabetes medications * Basal insulin * Lantus 30 units SQ BID * NPH 30 units this morning; 0-15 units with dinner this evening * Bolus insulin * NovoLog per scale ACHS or Q6hrs while NPO * Goal Range: Low 110 mg/dL - High 140 mg/dL * Correction Factor: 15 mg/dL/unit * Nutritional / Prandial insulin per carb ratio of 1 unit per 5 grams CHO consumed
[2020-06-21] MEDS ORDERED: INSULIN HUMAN NPH SC ONE (18:00)
[2020-06-21] MEDS: REMDESIVIR 100 MG in SODIUM CHLORIDE 0.9% 230 ML IV SCH (21:28)
[2020-06-22] MEDS: SODIUM CHLORIDE 0.9% 10ML FLUSH IV SCH ×2 (00:37→23:19)
[2020-06-22] MEDS ORDERED: INSULIN ASPART 100 UNITS/ML 3 ML PEN SC ONE (02:00)
[2020-06-22] MEDS: CEFEPIME 2,000 MG in SYRINGE 0 ML IV SCH ×3 (04:01→20:25)
[2020-06-22] MEDS: ATORVASTATIN 10 MG TAB PO SCH (07:52)
[2020-06-22] MEDS: DEXAMETHASONE SOD PHOSPHATE 6 MG in SYRINGE 0 ML IV SCH (07:52)
[2020-06-22] MEDS: AZITHROMYCIN 500 MG in DEXTROSE 5% 250 ML IV SCH (07:52)
[2020-06-22] MEDS: INSULIN ASPART 100 UNITS/ML 3 ML PEN SC SCH ×4 (07:58→20:30)
[2020-06-22] MEDS ORDERED: INSULIN HUMAN NPH SC SCH ×2 (08:00→17:00)
[2020-06-22] MEDS: INSULIN GLARGINE SOLOSTAR 100 UNITS/ML 3 ML PEN SC SCH ×2 (08:00→20:28)
[2020-06-22] MEDS: ENOXAPARIN INJ 40 MG/0.4 ML SYR SQ SCH ×2 (08:38→20:30)
[2020-06-22] MEDS: POTASSIUM CHLORIDE CRTAB 20 MEQ TABCR PO SCH (08:38)
--- NOTE | 2020-06-22 12:42 | Hospitalist Progress Note ---
Date of Service June 22, 2020 Assessment & Plan (1) Sepsis: Secondary to COVID-19 +/- multifocal bacterial pneumonia as below. Lactate 1.7 - no fluids needed Follow up blood cultures - no growth Broad-spectrum antibiotics as below for 5 days to cover bacterial pneumonia sepsis is resolved, no fever and vitals stable (2) Respiratory failure, acute: Hypoxic, no CO2 retention on ABG Aim O2 sats > 90% currently on HFNC but improving, down to 45% FiO2 at 30L still on BIPAP at night which he uses chronically for MARYCRUZ hopeful to get him off HFNC today as he is feeling a lot better (3) COVID-19: plan for Dexamethasone 10 days, Remdesivir 5 days, received plasma on 06/20 Zinc 220mg daily currently with pneumonia, hypoxia is improving quickly he is eating and drinking well, no fever (4) Multifocal pneumonia: suspect the reason for his acute worsening is a bacterial pneumonia on top of COVID-19. Will treat with broad spectrum antibiotics cefepime and azithromycin WBC is normal, no fever, minimal cough, plan for 5 days of antibiotics which will be tomorrow (5) DM type 2 (diabetes mellitus, type 2): HbA1C 8.1 [06/16/20] Consult pharmacy for glycemic control with basal bolus insulin and coverage for dexamethasone dosing has hyperglycemia today, no hypoglycemia episodes while here eating well (6) Acne: Hold doxycycline while on antibiotics above (7) DVT prophylaxis: Given increased hypercoagulable state with COVID-19 will treat with Lovenox 40mg SQ BID Admission and Anticipated Discharge Date Admission Date: June 19, 2020 Subjective patient is doing better, he got washed up this morning which made him feel good he is eating very well, making urine, moving his bowels breathing is more comfortable, less cough titrated down to 30L and 45% FiO2 this morning, spoke with respiratory care, will try to get him off the High Flow no labs today will take him off the heart monitor as rhythm and rate have been stable for days spoke with RN about the plan hope for d/c in a few days Review of Systems Review of Systems: All systems reviewed & are unremarkable except as noted in Subjective Physical Exam Constitutional: well developed and + morbidly obese; no acute distress Neck: trachea midline, no thyromegaly Respiratory: normal respiratory effort and + cough; no respiratory distress Auscultation: no crackles, no rales, no rhonchi and no wheezes Cardiovascular: RRR, no murmur, no edema Gastrointestinal (Abdomen): normal bowel sounds, soft, nontender, no hepatosplenomegaly Musculoskeletal: no cyanosis or clubbing, extremities motor strength 5/5 Skin: no rashes, warm and dry Neurologic: patellar DTR's 2+ bilat, sensation intact and PERRL, EOMI, accommodation nl, no face palsy, no dysarthria Psychiatric: A+Ox3, euthymic affect Lymphatic: no cervical or axillary lymphadenopathy Results & Data Results & Data ([facility]) Vital Signs (Past 12 Hours) Vital Signs Temp Pulse Pulse Resp BP BP Pulse Ox 06/22/20 12:04 36.4 C L 79 22 140/79 97 06/22/20 11:32 89 24 94 06/22/20 08:50 80 06/22/20 07:53 36.4 C L 84 20 141/79 H 97 06/22/20 07:37 90 22 91 06/22/20 03:52 36.7 C 100 H 22 151/83 H 97 06/22/20 02:22 77 27 H 98 Laboratory Results Laboratory Results - last 24 hr 06/21/20 06/21/20 06/22/20 15:59 21:17 01:59 POC Glucose 219 H 191 H 170 H 06/22/20 06/22/20 07:26 11:11 POC Glucose 167 H 206 H Medications Administered Current Inpatient Medications Acetaminophen (Acetaminophen 325 Mg Tab) 650 mg PO Q4H PRN PRN Reason: Pain or Fever Stop: 07/19/20 22:25 Al Hydrox/Mg Hydrox/Simethicone (Aluminum/Magnesium Susp 30 Ml Udc) 15 ml PO Q4H PRN PRN Reason: Dyspepsia Stop: 07/19/20 22:25 Atorvastatin Calcium (Atorvastatin 10 Mg Tab) 10 mg PO DAILY DAVID Stop: 07/20/20 08:59 Last Admin: 06/22/20 07:52 Dose: 10 mg Documented by: Dextrose (Dextrose 50% 50 Ml Syringe) 25 - 50 ml IV UD PRN; Protocol PRN Reason: Hypoglycemia Protocol Stop: 07/20/20 01:14 Enoxaparin Sodium (Enoxaparin Inj 40 Mg/0.4 Ml Syr) 40 mg SQ Q12 DAVID Stop: 07/19/20 22:25 Last Admin: 06/22/20 08:38 Dose: 40 mg Documented by: Glucagon (Glucagon For Inj 1 Mg Vial) 1 mg SQ UD PRN; Protocol PRN Reason: Hypoglycemia Protocol Stop: 07/20/20 01:14 Glucose (Glucose 40% Gel 15 Gm Tube) 15 - 30 gm PO UD PRN; Protocol PRN Reason: Hypoglycemia Protocol Stop: 07/20/20 01:14 Glucose (Glucose 10 Tabs/Tube) 4 - 8 tabs PO UD PRN; Protocol PRN Reason: Hypoglycemia Protocol Stop: 07/20/20 01:14 Azithromycin 500 mg/ Dextrose 255 mls @ 125 mls/hr IV QAM [facility] Stop: 06/23/20 11:03 Last Infusion: 06/22/20 09:55 Dose: Infused Documented by: Remdesivir 100 mg/ Sodium (Chloride) 250 mls @ 250 mls/hr IV Q24H [facility] [place]; Protocol Stop: 06/23/20 22:59 Last Infusion: 06/21/20 23:06 Dose: Infused Documented by: Dexamethasone Sodium Phosphate (6 mg/ Syringe) 1.5 mls @ 1 mls/min IV QAM [facility] [place] Stop: 07/20/20 08:59 Last Admin: 06/22/20 07:52 Dose: 1 mls/min Documented by: Cefepime HCl 2,000 mg/ Syringe 20 mls @ 5 mls/min IV Q8H [facility] [place] Stop: 06/27/20 03:59 Last Admin: 06/22/20 04:01 Dose: 5 mls/min Documented by: Insulin Aspart (Insulin Aspart 100 Units/Ml 3 Ml Pen) 0 units SC ACHS [facility] [place] Stop: 07/20/20 01:14 Last Admin: 06/22/20 07:58 Dose: 13 units Documented by: Insulin Glargine (Insulin Glargine Solostar 100 Units/Ml 3 Ml Pen) 30 units SC BID [facility] [place] Stop: 07/20/20 08:59 Last Admin: 06/22/20 08:00 Dose: 30 units Documented by: Insulin Human NPH (Insulin Human Nph) 0 units SC 1700 [facility] [place]; Protocol Stop: 06/22/20 19:00 Lisinopril (Lisinopril 10 Mg Tab) 10 mg PO DAILY [facility] [place] Stop: 07/22/20 11:28 Miscellaneous (Carbohydrates For Hypoglycemia ) 15 - 30 gm PO UD PRN PRN Reason: Hypoglycemia Treatment Stop: 07/20/20 01:14 Miscellaneous Information (Cefepime Consult Active) 1 ea N/A UD PRN PRN Reason: Consult Stop: 07/19/20 22:25 Miscellaneous Information (Pharmacy Glycemic Mgmt Consult) 1 ea N/A UD PRN PRN Reason: Consult Stop: 07/19/20 22:39 Ondansetron HCl (Ondansetron Inj 2 Mg/Ml 2 Ml Vial) 4 mg IV Q6H PRN PRN Reason: Nausea Stop: 07/19/20 22:25 Polyethylene Glycol (Polyethylene (Miralax) 17 Gm Pack) 17 gm PO DAILY PRN PRN Reason: Constipation Stop: 07/19/20 22:25 Sodium Chloride (Sodium Chloride 0.9% 10ml Flush) 30 ml IV Q24H [facility]ID Stop: 06/23/20 23:31 Last Admin: 06/22/20 00:37 Dose: 30 ml Documented by: PG Care Time/CCT Total # of Minutes Spent Total Time Spent with Patient: Total time spent is greater than 50% in coordination of care (as documented) at patient's floor/unit and/or counseling patient: Coding Level of Care Code 89469 Subseq Hosp Care Lvl 3 Diagnoses Sepsis A41.9 Respiratory failure, acute J96.01 Respiratory failure complication: hypoxia COVID-19 U07.1 Multifocal pneumonia J18.9 DM type 2 (diabetes mellitus, type 2) E11.9 Acne L70.9 DVT prophylaxis Z29.9 (1) Respiratory failure, acute Respiratory failure complication: hypoxia Qualified Code(s): J96.01 - Acute respiratory failure with hypoxia
[2020-06-22] MEDS: lisinopril 10 MG TAB PO SCH (12:44)
[2020-06-22] MEDS: REMDESIVIR 100 MG in SODIUM CHLORIDE 0.9% 230 ML IV SCH (22:20)
[2020-06-23] MEDS: CEFEPIME 2,000 MG in SYRINGE 0 ML IV SCH ×3 (04:01→19:28)
[2020-06-23 07:11] LABS: Hematocrit (blood only) 37.8 % (42-52); Hemoglobin 12.1 g/dL (14.0-18.0); Mean Corpuscular Hemoglobin 27.8 pg (25-34); Mean Corpuscular Volume 86.7 fL (80-100); Platelet Count 230 K/uL (130-400); RDW Coefficient of Variation 15.2 % (11.5-14.5); RDW Standard Deviation 48.7 fL (36.4-46.3); Red Blood Count 4.36 M/uL (4.7-6.1); White Blood Count 6.06 K/uL (4.8-10.8)
[2020-06-23 07:19] LABS: D Dimer 2180 ug/L FEU (0-500)
[2020-06-23 07:56] LABS: Alanine Aminotransferase 86 U/L (12-78); Albumin Globulin Ratio 0.5 (0.9-2); Albumin Level 2.5 gm/dl (3.4-5.0); Alkaline Phosphatase 84 U/L (45-117); Aspartate Aminotransferase 116 U/L (15-37); BUN Creatinine Ratio 26.5 (10-20); Bilirubin,Total 0.7 mg/dl (0.2-1); Blood Urea Nitrogen 16 mg/dl (7-18); Calcium 8.6 mg/dl (8.5-10.1); Carbon Dioxide 28 mmol/L (21-32); Chloride 105 mmol/L (98-107); Creatinine Clr Calc Pharmacy 304.6 ml/min; Est GFR (African American) > 150.0; Globulin 5.1 gm/dl (2.5-4.0); Glucose 120 mg/dl (70-99); Potassium 3.1 mmol/L (3.5-5.1); Sodium 138 mmol/L (136-145); Total Protein 7.6 gm/dl (6.4-8.2)
[2020-06-23] MEDS ORDERED: INSULIN HUMAN NPH SC SCH ×3 (08:00→17:00)
[2020-06-23] MEDS: DEXAMETHASONE SOD PHOSPHATE 6 MG in SYRINGE 0 ML IV SCH (08:05)
[2020-06-23] MEDS: INSULIN HUMAN NPH SC SCH (08:09)
[2020-06-23] MEDS: INSULIN GLARGINE SOLOSTAR 100 UNITS/ML 3 ML PEN SC SCH ×2 (08:10→20:43)
[2020-06-23] MEDS: lisinopril 10 MG TAB PO SCH (08:10)
[2020-06-23] MEDS: ENOXAPARIN INJ 40 MG/0.4 ML SYR SQ SCH ×2 (08:11→20:46)
[2020-06-23] MEDS: ATORVASTATIN 10 MG TAB PO SCH (08:11)
[2020-06-23] MEDS: INSULIN ASPART 100 UNITS/ML 3 ML PEN SC SCH ×4 (08:12→20:43)
--- NOTE | 2020-06-23 10:20 | Hospitalist Progress Note ---
Date of Service June 23, 2020 Assessment & Plan (1) Sepsis: Secondary to COVID-19 +/- multifocal bacterial pneumonia as below. Lactate 1.7 - no fluids needed Follow up blood cultures - no growth Broad-spectrum antibiotics as below for 5 days to cover bacterial pneumonia, today is day 5 sepsis is resolved, no fever and vitals stable (2) Respiratory failure, acute: Hypoxic, no CO2 retention on ABG Aim O2 sats > 90% currently on HFNC but improving, down to 40% FiO2 and 20L plan to place on low flow NC today still on BIPAP at night which he uses chronically for MARYCRUZ instructed patient to get OOB to chair today, sit upright, use incentive sp irometer anticipate him being here a few more days to titrate down on oxygen (3) COVID-19: plan for Dexamethasone 10 days, Remdesivir 5 days, received plasma on 06/20 Remdesivir completed on 06/23 Zinc 220mg daily currently with pneumonia, hypoxia is improving quickly he is eating and drinking well, no fever, no diarrhea (4) Multifocal pneumonia: suspect possible reason for acute worsening is a bacterial pneumonia on top of COVID-19. treated with broad spectrum antibiotics cefepime and azithromycin WBC is normal, no fever, minimal cough, plan for 5 days of antibiotics which is today (5) DM type 2 (diabetes mellitus, type 2): HbA1C 8.1 [06/16/20] Consult pharmacy for glycemic control with basal bolus insulin and coverage for dexamethasone dosing has hyperglycemia today, no hypoglycemia episodes while here eating well (6) Acne: Hold doxycycline while on antibiotics above (7) DVT prophylaxis: Given increased hypercoagulable state with COVID-19 will treat with Lovenox 40mg SQ BID Admission and Anticipated Discharge Date Admission Date: June 19, 2020 Subjective patient feels great, he is down to 20L and 40% FiO2, breathing well plan to titrate down to low flow nasal canula this morning he is sleeping well, eating well, moving his bowels, making urine labs reviewed, D dimer up a little at 2000's but this is just due to inflammation WBC normal, Cr normal, K is 3.1 so will give him BID oral replacement discussed that a new hospitalist will take over tomorrow, anticipate him being here a few more days to titrate down on oxygen Review of Systems Review of Systems: All systems reviewed & are unremarkable except as noted in Subjective Physical Exam Constitutional: well developed and + morbidly obese; no acute distress Neck: trachea midline, no thyromegaly Respiratory: normal respiratory effort and + cough; no respiratory distress Auscultation: no crackles, no rales, no rhonchi and no wheezes Cardiovascular: RRR, no murmur, no edema Rate/Rhythm: regular rhythm and + tachycardic Heart Sounds: normal S1 and normal S2; no murmur Vessels: no JVD Extremities: normal capillary refill; no edema Gastrointestinal (Abdomen): normal bowel sounds, soft, nontender, no hepatosplenomegaly Musculoskeletal: no cyanosis or clubbing, extremities motor strength 5/5 Skin: no rashes, warm and dry Neurologic: patellar DTR's 2+ bilat, sensation intact and PERRL, EOMI, accommodation nl, no face palsy, no dysarthria Psychiatric: A+Ox3, euthymic affect Lymphatic: no cervical or axillary lymphadenopathy Results & Data Results & Data ([facility]) Vital Signs (Past 12 Hours) Vital Signs Temp Pulse Pulse Resp BP BP Pulse Ox 06/23/20 08:06 112 H 21 93 06/23/20 07:57 36.5 C 88 18 134/79 95 06/23/20 02:55 80 22 96 06/23/20 00:01 36.5 C 73 22 141/75 H 96 06/22/20 23:49 79 20 97 Laboratory Results Laboratory Results - last 24 hr 06/22/20 06/22/20 06/22/20 11:11 16:29 20:17 WBC RBC Hgb Hct MCV MCH MCHC RDW Std Deviation RDW Coeff of Brittany Plt Count MPV D-Dimer Sodium Potassium Chloride Carbon Dioxide Anion Gap BUN Creatinine Est Cr Clr Drug Dosing Est GFR ( Amer) Est GFR (Non-Af Amer) BUN/Creatinine Ratio Glucose POC Glucose 206 H 187 H 206 H Calcium Total Bilirubin AST ALT Alkaline Phosphatase Total Protein Albumin Globulin Albumin/Globulin Ratio 06/23/20 06/23/20 06/23/20 05:52 05:52 05:52 WBC 6.06 RBC 4.36 L Hgb 12.1 L Hct 37.8 L MCV 86.7 MCH 27.8 MCHC 32.0 RDW Std Deviation 48.7 H RDW Coeff of Brittany 15.2 H Plt Count 230 MPV 11.0 H D-Dimer 2180 H* Sodium 138 Potassium 3.1 L Chloride 105 Carbon Dioxide 28 Anion Gap 5.0 BUN 16 Creatinine 0.61 Est Cr Clr Drug Dosing 304.6 Est GFR ( Amer) > 150.0 Est GFR (Non-Af Amer) 134.0 BUN/Creatinine Ratio 26.5 H Glucose 120 H POC Glucose Calcium 8.6 Total Bilirubin 0.7 AST 116 H ALT 86 H Alkaline Phosphatase 84 Total Protein 7.6 Albumin 2.5 L Globulin 5.1 H Albumin/Globulin Ratio 0.5 L 06/23/20 07:39 WBC RBC Hgb Hct MCV MCH MCHC RDW Std Deviation RDW Coeff of Brittany Plt Count MPV D-Dimer Sodium Potassium Chloride Carbon Dioxide Anion Gap BUN Creatinine Est Cr Clr Drug Dosing Est GFR ( Amer) Est GFR (Non-Af Amer) BUN/Creatinine Ratio Glucose POC Glucose 115 H Calcium Total Bilirubin AST ALT Alkaline Phosphatase Total Protein Albumin Globulin Albumin/Globulin Ratio Medications Administered Current Inpatient Medications Acetaminophen (Acetaminophen 325 Mg Tab) 650 mg PO Q4H PRN PRN Reason: Pain or Fever Stop: 07/19/20 22:25 Al Hydrox/Mg Hydrox/Simethicone (Aluminum/Magnesium Susp 30 Ml Udc) 15 ml PO Q4H PRN PRN Reason: Dyspepsia Stop: 07/19/20 22:25 Atorvastatin Calcium (Atorvastatin 10 Mg Tab) 10 mg PO DAILY [facility] Stop: 07/20/20 08:59 Last Admin: 06/23/20 08:11 Dose: 10 mg Documented by: Dextrose (Dextrose 50% 50 Ml Syringe) 25 - 50 ml IV UD PRN; Protocol PRN Reason: Hypoglycemia Protocol Stop: 07/20/20 01:14 Enoxaparin Sodium (Enoxaparin Inj 40 Mg/0.4 Ml Syr) 40 mg SQ Q12 DAVID Stop: 07/19/20 22:25 Last Admin: 06/23/20 08:11 Dose: 40 mg Documented by: Glucagon (Glucagon For Inj 1 Mg Vial) 1 mg SQ UD PRN; Protocol PRN Reason: Hypoglycemia Protocol Stop: 07/20/20 01:14 Glucose (Glucose 40% Gel 15 Gm Tube) 15 - 30 gm PO UD PRN; Protocol PRN Reason: Hypoglycemia Protocol Stop: 07/20/20 01:14 Glucose (Glucose 10 Tabs/Tube) 4 - 8 tabs PO UD PRN; Protocol PRN Reason: Hypoglycemia Protocol Stop: 07/20/20 01:14 Azithromycin 500 mg/ Dextrose 255 mls @ 125 mls/hr IV QAM [facility] Stop: 06/23/20 11:03 Last Infusion: 06/22/20 09:55 Dose: Infused Documented by: Remdesivir 100 mg/ Sodium (Chloride) 250 mls @ 250 mls/hr IV Q24H [facility]; Protocol Stop: 06/23/20 22:59 Last Infusion: 06/22/20 23:20 Dose: Infused Documented by: Dexamethasone Sodium Phosphate (6 mg/ Syringe) 1.5 mls @ 1 mls/min IV QAM [facility] Stop: 07/20/20 08:59 Last Admin: 06/23/20 08:05 Dose: 1 mls/min Documented by: Cefepime HCl 2,000 mg/ Syringe 20 mls @ 5 mls/min IV Q8H [facility] Stop: 06/27/20 03:59 Last Admin: 06/23/20 04:01 Dose: 5 mls/min Documented by: Insulin Aspart (Insulin Aspart 100 Units/Ml 3 Ml Pen) 0 units SC ACHS [facility] Stop: 07/20/20 01:14 Last Admin: 06/23/20 08:12 Dose: 14 units Documented by: Insulin Glargine (Insulin Glargine Solostar 100 Units/Ml 3 Ml Pen) 25 units SC BID [facility] Stop: 07/23/20 08:59 Last Admin: 06/23/20 08:10 Dose: 25 units Documented by: Insulin Human NPH (Insulin Human Nph) 45 units SC DAILY@0800 DAVID; Protocol Stop: 07/23/20 07:59 Last Admin: 06/23/20 08:09 Dose: 45 units Documented by: Insulin Human NPH (Insulin Human Nph) 0 units SC DAILY@1700 DAVID; Protocol Stop: 07/23/20 16:59 Lisinopril (Lisinopril 10 Mg Tab) 10 mg PO DAILY [facility] Stop: 07/22/20 11:28 Last Admin: 06/23/20 08:10 Dose: 10 mg Documented by: Miscellaneous (Carbohydrates For Hypoglycemia ) 15 - 30 gm PO UD PRN PRN Reason: Hypoglycemia Treatment Stop: 07/20/20 01:14 Miscellaneous Information (Cefepime Consult Active) 1 ea N/A UD PRN PRN Reason: Consult Stop: 07/19/20 22:25 Miscellaneous Information (Pharmacy Glycemic Mgmt Consult) 1 ea N/A UD PRN PRN Reason: Consult Stop: 07/19/20 22:39 Ondansetron HCl (Ondansetron Inj 2 Mg/Ml 2 Ml Vial) 4 mg IV Q6H PRN PRN Reason: Nausea Stop: 07/19/20 22:25 Polyethylene Glycol (Polyethylene (Miralax) 17 Gm Pack) 17 gm PO DAILY PRN PRN Reason: Constipation Stop: 07/19/20 22:25 Potassium Chloride (Potassium Chloride Crtab 20 Meq Tabcr) 20 meq PO BID DAVID Stop: 07/23/20 09:29 Sodium Chloride (Sodium Chloride 0.9% 10ml Flush) 30 ml IV Q24H DAVID Stop: 06/23/20 23:31 Last Admin: 06/22/20 23:19 Dose: 30 ml Documented by: PG Care Time/CCT Total # of Minutes Spent Total Time Spent with Patient: Total time spent is greater than 50% in coordination of care (as documented) at patient's floor/unit and/or counseling patient: Coding Level of Care Code 45026 Subseq Hosp Care Lvl 3 Diagnoses Sepsis A41.9 Respiratory failure, acute J96.01 Respiratory failure complication: hypoxia COVID-19 U07.1 Multifocal pneumonia J18.9 DM type 2 (diabetes mellitus, type 2) E11.9 Acne L70.9 DVT prophylaxis Z29.9 (1) Respiratory failure, acute Respiratory failure complication: hypoxia Qualified Code(s): J96.01 - Acute respiratory failure with hypoxia
[2020-06-23] MEDS: POTASSIUM CHLORIDE CRTAB 20 MEQ TABCR PO SCH ×2 (12:10→20:46)
[2020-06-23] MEDS: AZITHROMYCIN 500 MG in DEXTROSE 5% 250 ML IV SCH (12:10)
--- NOTE | 2020-06-23 14:46 | Pharmacy Report ---
Pharmacy Glycemic Short Note 2 - Date of Service June 23, 2020 - Glycemic Short BSG Results (Last 24 hours): 06/22/20 06/22/20 06/23/20 16:29 20:17 05:52 Glucose 120 H POC Glucose 187 H 206 H 06/23/20 06/23/20 06/23/20 07:39 11:32 13:50 Glucose POC Glucose 115 H 157 H 249 H OUTPATIENT ANTIDIABETIC REGIMEN: * Metformin 1000mg BIDM * A1c:8.1% 06/16/20 ASSESSMENT: 06/23: * Patient received 164 units of insulin yesterday * 110 units of basal (this includes 50 units of NPH for coverage of steroids) * 54 units of bolus * BSGs: 167, 206, 187, 206 mg/dL * Today is day #5 of dexamethasone * Fasting BSG is trending downward, therefore Lantus dose will be reduced ~17%. * Continue NPH for steroid induced hyperglycemia * increase AM dose to 45 units to avoid PM BSG spike and allow for smaller dose of NPH in the PM 06/21 * Patient received 97 units of insulin yesterday; 60 of basal, 37 of correctional/prandial * BSGs ranged from 210-250 mg/dL; Fasting this morning 180 mg/dL * Continues to receive dexamethasone 6 mg daily, will initiate NPH with dexamethasone, will give up to a total of 0.4 units/kg (ideal BW) divided BID (evening dose will be held if not needed) 06/20 * Patient admitted for SOB related to COVID-19. It appears he is only on metformin at home but does appear to be experiencing dexamethasone induced hyperglycemia. Given his high BMI, dosing was initiated using a high stress, adjusted body weight based regimen. Will continue to assess need for adjustments. He is tolerating a diet. PLAN FOR INPATIENT GLYCEMIC CONTROL: * Hold outpatient oral diabetes medications * Basal insulin * Decrease to Lantus 25 units SQ BID * NPH 45 units this morning; 0-10 units with dinner this evening * Bolus insulin * NovoLog per scale ACHS or Q6hrs while NPO * Goal Range: Low 110 mg/dL - High 140 mg/dL * Correction Factor: 15 mg/dL/unit * Nutritional / Prandial insulin per carb ratio of 1 unit per 4 grams CHO consumed
[2020-06-23] MEDS: REMDESIVIR 100 MG in SODIUM CHLORIDE 0.9% 230 ML IV SCH (22:00)
[2020-06-23] MEDS: SODIUM CHLORIDE 0.9% 10ML FLUSH IV SCH (23:22)
--- NOTE | 2020-06-24 07:51 | Hospitalist Progress Note ---
Date of Service June 24, 2020 Assessment & Plan (1) Sepsis: Secondary to COVID-19 +/- multifocal bacterial pneumonia Follow up blood cultures - no growth Broad-spectrum antibiotics to cover bacterial pneumonia, completed 5 days course sepsis is resolved, no fever and vitals stable (2) Respiratory failure, acute: Hypoxic, no CO2 retention on ABG Aim O2 sats > 89% currently on NC but improving, 5L still on BIPAP at night which he uses chronically for MARYCRUZ reinforced incentive spirometer (3) COVID-19: plan for Dexamethasone 10 days, received plasma on 06/20 Remdesivir completed on 06/23 Zinc 220mg daily currently with pneumonia, hypoxia is improving he is eating and drinking well, no fever, no diarrhea (4) Multifocal pneumonia: suspect possible reason for acute worsening is a bacterial pneumonia on top of COVID-19. completed treatment with broad spectrum antibiotics cefepime and azithromycin WBC is normal, no fever, minimal cough, plan for 5 days of antibiotics which is today (5) DM type 2 (diabetes mellitus, type 2): HbA1C 8.1 [06/16/20] Consult pharmacy for glycemic control with basal bolus insulin and coverage for dexamethasone dosing has hyperglycemia today, no hypoglycemia episodes while here eating well (6) Acne: Hold doxycycline while on antibiotics above (7) DVT prophylaxis: Given increased hypercoagulable state with COVID-19 will treat with Lovenox 40mg SQ BID Admission and Anticipated Discharge Date Admission Date: June 19, 2020 Subjective pt remains breathless and speaks in two part sentences, is not with cough but becomes short of breath easily with minor exertion Review of Systems Review of Systems: Mild distress and fatigue no headache, blurry or double vision no speech or swallowing issues no chest pain, pressure or palpitations shortness of breath with speaking and minor exertion, minor cough no abdominal pain, nausea or vomiting,no diarrhea no dysuria, hematuria or frequency no focal joint pain or swelling no back pain, CVA tenderness or radicular pain no bruising, bleeding or rashes no focal signs of weakness or numbness or altered sensation no complaints of anxiety or depression. Physical Exam Physical Exam: The patient appeared well nourished and normally developed. Vital signs as documented. Remains hypoxic on room air less than 88% Head exam is normocephalic atraumatic no scleral icterus Neck is without JVD, thyromegaly, or carotid bruits. Lungs are coarse bilaterally Cardiac exam, Rhythm is regular.. No murmurs, rubs or gallops. Abdominal exam reveals normal bowel sounds, soft non tender, no masses Extremities are nonedematous and both pedal pulses are present Neurologic exam is alert and oriented, no focal loss of strength or sensation Skin is without bruises or rashes Psychologically is without concerns for anxiety or depression. Results & Data Results & Data ([facility]) Vital Signs (Past 12 Hours) Vital Signs Temp Pulse Pulse Pulse Resp BP BP 06/24/20 07:41 97.5 F L 87 19 123/73 06/24/20 03:54 98.6 F 83 18 145/84 H 06/24/20 02:33 80 20 06/24/20 00:42 97.5 F L 93 H 18 153/74 H 06/23/20 23:39 98.2 F 86 20 146/83 H 06/23/20 23:35 88 18 Pulse Ox 06/24/20 07:41 94 06/24/20 03:54 96 06/24/20 02:33 96 06/24/20 00:42 93 06/23/20 23:39 93 06/23/20 23:35 93 PG Care Time/CCT Total # of Minutes Spent Total Time Spent with Patient: Total time spent is greater than 50% in coordination of care (as documented) at patient's floor/unit and/or counseling patient: Coding Level of Care Code 23394 Subseq Hosp Care Lvl 3 Diagnoses Sepsis A41.9 Respiratory failure, acute J96.01 Respiratory failure complication: hypoxia COVID-19 U07.1 Multifocal pneumonia J18.9 DM type 2 (diabetes mellitus, type 2) E11.9 Acne L70.9 DVT prophylaxis Z29.9 (1) Respiratory failure, acute Respiratory failure complication: hypoxia Qualified Code(s): J96.01 - Acute respiratory failure with hypoxia
[2020-06-24] MEDS: lisinopril 10 MG TAB PO SCH (07:52)
[2020-06-24] MEDS: ATORVASTATIN 10 MG TAB PO SCH (07:52)
[2020-06-24] MEDS: ENOXAPARIN INJ 40 MG/0.4 ML SYR SQ SCH ×2 (07:52→20:52)
[2020-06-24] MEDS: INSULIN GLARGINE SOLOSTAR 100 UNITS/ML 3 ML PEN SC SCH ×3 (07:53→21:29)
[2020-06-24] MEDS: INSULIN HUMAN NPH SC SCH (07:55)
[2020-06-24] MEDS: POTASSIUM CHLORIDE CRTAB 20 MEQ TABCR PO SCH ×2 (08:15→22:24)
[2020-06-24] MEDS: INSULIN ASPART 100 UNITS/ML 3 ML PEN SC SCH ×4 (09:47→21:30)
[2020-06-24] MEDS: DEXAMETHASONE SOD PHOSPHATE 6 MG in SYRINGE 0 ML IV SCH (09:49)
--- NOTE | 2020-06-24 10:57 | Pharmacy Report ---
Pharmacy Glycemic Short Note 2 - Date of Service June 24, 2020 - Glycemic Short BSG Results (Last 24 hours): 06/23/20 06/23/20 06/23/20 11:32 13:50 16:17 POC Glucose 157 H 249 H 155 H 06/23/20 06/24/20 20:33 07:40 POC Glucose 181 H 97 OUTPATIENT ANTIDIABETIC REGIMEN: * Metformin 1000mg BIDM * A1c:8.1% 06/16/20 ASSESSMENT: 06/24: * Dexamethasone 6 mg IV qAM continues - day 6 of anticipated 10 for COVID-19. T2DM diet ordered * AM fasting BSG slightly below goal range after Lantus 25 units BID and NPH 45 units in AM yesterday. Will stop NPH scale for the PM and reduce Lantus very slightly * Post prandial BSG's improved yesterday after tightening CHO ratio, but still with one BSG very slightly >180 mg/dL. Will leave CHO ratio as-is for now, but may tighten further if another BSG >180 mg/dL later today 06/23: * Patient received 164 units of insulin yesterday * 110 units of basal (this includes 50 units of NPH for coverage of steroids) * 54 units of bolus * BSGs: 167, 206, 187, 206 mg/dL * Today is day #5 of dexamethasone * Fasting BSG is trending downward, therefore Lantus dose will be reduced ~17%. * Continue NPH for steroid induced hyperglycemia * increase AM dose to 45 units to avoid PM BSG spike and allow for smaller dose of NPH in the PM 06/21 * Patient received 97 units of insulin yesterday; 60 of basal, 37 of correctio nal/prandial * BSGs ranged from 210-250 mg/dL; Fasting this morning 180 mg/dL * Continues to receive dexamethasone 6 mg daily, will initiate NPH with dexamethasone, will give up to a total of 0.4 units/kg (ideal BW) divided BID (evening dose will be held if not needed) 06/20 * Patient admitted for SOB related to COVID-19. It appears he is only on metformin at home but does appear to be experiencing dexamethasone induced hyperglycemia. Given his high BMI, dosing was initiated using a high stress, adjusted body weight based regimen. Will continue to assess need for adjustm ents. He is tolerating a diet. PLAN FOR INPATIENT GLYCEMIC CONTROL: * Hold outpatient oral diabetes medications * Basal insulin * Decrease to Lantus 15-20 units SQ BID * NPH 45 units this morning * Bolus insulin * NovoLog per scale ACHS or Q6hrs while NPO * Goal Range: Low 110 mg/dL - High 140 mg/dL * Correction Factor: 15 mg/dL/unit * Nutritional / Prandial insulin per carb ratio of 1 unit per 4 grams CHO consumed
[2020-06-25] MEDS: lisinopril 10 MG TAB PO SCH (08:11)
[2020-06-25] MEDS: ENOXAPARIN INJ 40 MG/0.4 ML SYR SQ SCH ×2 (08:12→21:34)
[2020-06-25] MEDS: GLIMEPIRIDE 2 MG TAB PO SCH (08:12)
[2020-06-25] MEDS: ATORVASTATIN 10 MG TAB PO SCH (08:13)
[2020-06-25] MEDS: INSULIN GLARGINE SOLOSTAR 100 UNITS/ML 3 ML PEN SC SCH ×2 (08:14→22:08)
[2020-06-25] MEDS: INSULIN ASPART 100 UNITS/ML 3 ML PEN SC SCH ×4 (08:15→22:09)
[2020-06-25] MEDS: DEXAMETHASONE SOD PHOSPHATE 6 MG in SYRINGE 0 ML IV SCH (09:52)
[2020-06-25] MEDS: POTASSIUM CHLORIDE CRTAB 20 MEQ TABCR PO SCH ×2 (09:52→21:34)
[2020-06-25] MEDS: INSULIN HUMAN NPH SC SCH (09:53)
--- NOTE | 2020-06-25 11:45 | Pharmacy Report ---
Pharmacy Glycemic Short Note 2 - Date of Service June 25, 2020 - Glycemic Short BSG Results (Last 24 hours): 06/24/20 06/24/20 06/25/20 16:45 20:47 07:40 POC Glucose 181 H 126 H 93 06/25/20 11:26 POC Glucose 123 H OUTPATIENT ANTIDIABETIC REGIMEN: * Metformin 1000mg BIDM * A1c:8.1% 06/16/20 ASSESSMENT: 06/25: * Day 7 of dexamethasone * Discussed w Dr. Olivera yesterday - anticipated discharge, possibly 06/26 or 06/27. However, would prefer to not discharge on insulin. Patient's current insulin requirements while on dexamethasone are extensive (140 units yesterday) and last dose of dexamethasone to complete a 10 day course would be 06/28. Therefore, this may or may not be possible. But will trial glimepiride as inpatient today (which will help with prandial insulin secretion) to see how inpatient BSG's trend to help determine feasibility of discharging without insulin. * Insulin will need to be reduced now that glimepiride started this AM. CHO ratio has been eliminated. Lantus dose will be reduced as well 06/24: * Dexamethasone 6 mg IV qAM continues - day 6 of anticipated 10 for COVID-19. T2DM diet ordered * AM fasting BSG slightly below goal range after Lantus 25 units BID and NPH 45 units in AM yesterday. Will stop NPH scale for the PM and reduce Lantus very slightly * Post prandial BSG's improved yesterday after tightening CHO ratio, but still with one BSG very slightly >180 mg/dL. Will leave CHO ratio as-is for now, but may tighten further if another BSG >180 mg/dL later today 06/23: * Patient received 164 units of insulin yesterday * 110 units of basal (this includes 50 units of NPH for coverage of steroids) * 54 units of bolus * BSGs: 167, 206, 187, 206 mg/dL * Today is day #5 of dexamethasone * Fasting BSG is trending downward, therefore Lantus dose will be reduced ~17%. * Continue NPH for steroid induced hyperglycemia * increase AM dose to 45 units to avoid PM BSG spike and allow for smaller dose of NPH in the PM 06/21 * Patient received 97 units of insulin yesterday; 60 of basal, 37 of correctional/prandial * BSGs ranged from 210-250 mg/dL; Fasting this morning 180 mg/dL * Continues to receive dexamethasone 6 mg daily, will initiate NPH with dexamethasone, will give up to a total of 0.4 units/kg (ideal BW) divided BID (evening dose will be held if not needed) 06/20 * Patient admitted for SOB related to COVID-19. It appears he is only on metformin at home but does appear to be experiencing dexamethasone induced hyperglycemia. Given his high BMI, dosing was initiated using a high stress, adjusted body weight based regimen. Will continue to assess need for adjustments. He is tolerating a diet. PLAN FOR INPATIENT GLYCEMIC CONTROL: * Initiate glimepiride 2 mg po with breakfast * Basal insulin - decrease * Lantus 0-20 units SQ BID based on BSG * NPH 45 units this morning * Bolus insulin - eliminate CHO ratio * NovoLog per scale ACHS or Q6hrs while NPO * Goal Range: Low 110 mg/dL - High 140 mg/dL * Correction Factor: 15 mg/dL/unit
--- NOTE | 2020-06-25 15:02 | Hospitalist Progress Note ---
Date of Service June 25, 2020 Assessment & Plan (1) Sepsis: Secondary to COVID-19 +/- multifocal bacterial pneumonia Follow up blood cultures - no growth Broad-spectrum antibiotics to cover bacterial pneumonia, completed 5 days course sepsis is resolved, no fever and vitals stable (2) Respiratory failure, acute: Hypoxic, no CO2 retention on ABG Aim O2 sats > 89% currently on NC but improving, 3L still on BIPAP at night which he uses chronically for MARYCRUZ reinforced incentive spirometer (3) COVID-19: plan for Dexamethasone 10 days, received plasma on 06/20 Remdesivir completed on 06/23 Zinc 220mg daily currently with pneumonia, hypoxia is improving he is eating and drinking well, no fever, no diarrhea (4) Multifocal pneumonia: suspect possible reason for acute worsening is a bacterial pneumonia on top of COVID-19. completed treatment with broad spectrum antibiotics cefepime and azithromycin WBC is normal, no fever, minimal cough, plan for 5 days of antibiotics which is today (5) DM type 2 (diabetes mellitus, type 2): HbA1C 8.1 [06/16/20] Consult pharmacy for glycemic control transitioned to sulfonylurea and metformin, likely may not need sulfonylurea once Decadron will be stopped (6) Acne: consider resuming antibiotics on discharge (7) DVT prophylaxis: Given increased hypercoagulable state with COVID-19 will treat with Lovenox 40mg SQ BID Admission and Anticipated Discharge Date Admission Date: June 19, 2020 Subjective pt remains breathless and speaks in two part sentences, is not with cough but becomes short of breath easily with minor exertion, he feels improved but still requires supplemental oxygen Review of Systems Review of Systems: Mild distress and fatigue no headache, blurry or double vision no speech or swallowing issues no chest pain, pressure or palpitations shortness of breath with speaking and minor exertion, minor cough no abdominal pain, nausea or vomiting,no diarrhea no dysuria, hematuria or frequency no focal joint pain or swelling no back pain, CVA tenderness or radicular pain no bruising, bleeding or rashes no focal signs of weakness or numbness or altered sensation no complaints of anxiety or depression. Physical Exam Physical Exam: The patient appeared well nourished and normally developed. Vital signs as documented. Remains hypoxic on room air less than 88% Head exam is normocephalic atraumatic no scleral icterus Neck is without JVD, thyromegaly, or carotid bruits. Lungs are coarse bilaterally Cardiac exam, Rhythm is regular.. No murmurs, rubs or gallops. Abdominal exam reveals normal bowel sounds, soft non tender, no masses Extremities are nonedematous and both pedal pulses are present Neurologic exam is alert and oriented, no focal loss of strength or sensation Skin is without bruises or rashes Psychologically is without concerns for anxiety or depression. Results & Data Results & Data ([facility]) Vital Signs (Past 12 Hours) Vital Signs Temp Pulse Pulse Resp BP Pulse Ox 06/25/20 12:24 92 06/25/20 07:41 97.5 F L 92 H 91 H 18 123/69 94 06/25/20 04:00 97.5 F L 80 18 93 PG Care Time/CCT Total # of Minutes Spent Total Time Spent with Patient: Total time spent is greater than 50% in coordination of care (as documented) at patient's floor/unit and/or counseling patient: Coding Level of Care Code 71796 Subseq Hosp Care Lvl 2 Diagnoses Sepsis A41.9 Respiratory failure, acute J96.01 Respiratory failure complication: hypoxia COVID-19 U07.1 Multifocal pneumonia J18.9 DM type 2 (diabetes mellitus, type 2) E11.9 Acne L70.9 DVT prophylaxis Z29.9 (1) Respiratory failure, acute Respiratory failure complication: hypoxia Qualified Code(s): J96.01 - Acute respiratory failure with hypoxia
[2020-06-26] MEDS: INSULIN ASPART 100 UNITS/ML 3 ML PEN SC SCH (08:30)
[2020-06-26] MEDS: lisinopril 10 MG TAB PO SCH (08:43)
[2020-06-26] MEDS: ENOXAPARIN INJ 40 MG/0.4 ML SYR SQ SCH (08:43)
[2020-06-26] MEDS: GLIMEPIRIDE 2 MG TAB PO SCH (08:44)
[2020-06-26] MEDS: POTASSIUM CHLORIDE CRTAB 20 MEQ TABCR PO SCH (08:44)
[2020-06-26] MEDS: ATORVASTATIN 10 MG TAB PO SCH (08:44)
[2020-06-26] MEDS: DEXAMETHASONE SOD PHOSPHATE 6 MG in SYRINGE 0 ML IV SCH (08:55)
[2020-06-26] MEDS: INSULIN GLARGINE SOLOSTAR 100 UNITS/ML 3 ML PEN SC SCH (08:56)
[2020-06-26] MEDS: INSULIN HUMAN NPH SC SCH (09:00)
[2020-06-26] MEDS ORDERED: dexAMETHasone 4 MG TAB PO ONE (09:45)
[2020-06-26] MEDS ORDERED: INSULIN HUMAN NPH SC ONE (10:15)
--- NOTE | 2020-06-26 11:02 | Pharmacy Report ---
Pharmacy Glycemic Short Note 2 - Date of Service June 26, 2020 - Glycemic Short BSG Results (Last 24 hours): 06/25/20 06/25/20 06/25/20 11:26 16:39 20:27 POC Glucose 123 H 188 H 123 H 06/26/20 07:49 POC Glucose 87 OUTPATIENT ANTIDIABETIC REGIMEN: * Metformin 1000mg BIDM * A1c:8.1% 06/16/20 ASSESSMENT: 06/26: * Day 8 of dexamethasone. This was changed to po this AM, and although the dose is considered equivalent, changing to PO can sometimes increase insulin sensitivity. Will therefore decrease NPH this AM * AM fasting BSG also below goal range despite reduction in Lantus yesterday. W ill hold further Lantus as this time 2nd lower BSG and also possible increase in insulin sensitivity from changing to PO dexamethasone. Only basal agent will therefore be NPH. * Post-prandial BSG's seem to be adequately controlled with glimepiride alone, with no prandial Novolog required 06/25: * Day 7 of dexamethasone * Discussed w Dr. Olivera yesterday - anticipated discharge, possibly 06/26 or 06/27. However, would prefer to not discharge on insulin. Patient's current insulin requirements while on dexamethasone are extensive (140 units yesterday) and last dose of dexamethasone to complete a 10 day course would be 06/28. Therefore, this may or may not be possible. But will trial glimepiride as inpatient today (which will help with prandial insulin secretion) to see how inpatient BSG's trend to help determine feasibility of discharging without insulin. * Insulin will need to be reduced now that glimepiride started this AM. CHO ratio has been eliminated. Lantus dose will be reduced as well 06/24: * Dexamethasone 6 mg IV qAM continues - day 6 of anticipated 10 for COVID-19. T2DM diet ordered * AM fasting BSG slightly below goal range after Lantus 25 units BID and NPH 45 units in AM yesterday. Will stop NPH scale for the PM and reduce Lantus very slightly * Post prandial BSG's improved yesterday after tightening CHO ratio, but still with one BSG very slightly >180 mg/dL. Will leave CHO ratio as-is for now, but may tighten further if another BSG >180 mg/dL later today 06/23: * Patient received 164 units of insulin yesterday * 110 units of basal (this includes 50 units of NPH for coverage of steroids) * 54 units of bolus * BSGs: 167, 206, 187, 206 mg/dL * Today is day #5 of dexamethasone * Fasting BSG is trending downward, therefore Lantus dose will be reduced ~17%. * Continue NPH for steroid induced hyperglycemia * increase AM dose to 45 units to avoid PM BSG spike and allow for smaller do se of NPH in the PM 06/21 * Patient received 97 units of insulin yesterday; 60 of basal, 37 of correctional/prandial * BSGs ranged from 210-250 mg/dL; Fasting this morning 180 mg/dL * Continues to receive dexamethasone 6 mg daily, will initiate NPH with dexamethasone, will give up to a total of 0.4 units/kg (ideal BW) divided BID (evening dose will be held if not needed) 06/20 * Patient admitted for SOB related to COVID-19. It appears he is only on metformin at home but does appear to be experiencing dexamethasone induced hyperglycemia. Given his high BMI, dosing was initiated using a high stress, adjusted body weight based regimen. Will continue to assess need for adjustments. He is tolerating a diet. PLAN FOR INPATIENT GLYCEMIC CONTROL: * Continue glimepiride 2 mg po with breakfast * Basal insulin - decrease * Hold Lantus * Decrease NPH 30 units this morning * Bolus insulin - no change * NovoLog per scale ACHS or Q6hrs while NPO * Goal Range: Low 110 mg/dL - High 140 mg/dL * Correction Factor: 15 mg/dL/unit
--- NOTE | 2020-06-26 17:53 | Discharge Summary ---
Date of Service June 26, 2020 Admission HPI Per Admitting Provider Asif Brown is a 29 year old male with obstructive sleep apnea and type 2 diabetes who presents to the ER with worsening shortness of breath and cough after recent diagnosis of COVID-19. History taken from the patient difficult due to tachypnea and mild confusion. Majority of history taken from prior notes and his father. He was recently diagnosed at [facility] [employer] on June 14 due to shortness of breath and fever at that time. He was prescribed prednisone 60 mg for 3 days and azithromycin 500 mg for 3 days. However he came to the emergency room 2 days later due to worsening cough and shortness of breath. Per notes of the time he was not significantly hypoxic and was discharged the following day (June 17Wednesday) without any antibiotic (other than his usual acne doxycycline treatment) or steroid treatment. He had a CTA last admission which did not show a central pulmonary emboli however remainder were suboptimally assessed due to artifact. After discharge he started getting worse again with increasing shortness of breath, ongoing fevers, productive cough. His cough is better now that he cannot wear his CPAP at night. Overnight he was unable to get much sleep due to the coughing therefore decided to come to the ER today. He also notes diarrhea for the last 2 days since he was discharged. Non-watery. No abdominal pain, nausea, vomiting, melena, bright red blood in stool. In the ER he was noted to be significantly hypoxic even on high flow oxygen level was placed briefly on BiPAP. The patient was back on 70% FiO2 high flow oxygen when seen. Chest x-ray concerning for worsening multifocal pneumonia. He was tachycardic and diaphoretic with fever 38.1C. He was referred to medicine for ongoing management of his acute hypoxic respiratory failure on high flow, COVID-19. Principal Diagnosis sepsis due to covid 19 pneumonia-> resolved Discharge Exam The patient appeared well Vital signs as documented. Lungs are clear to auscultation and appear unlabored Cardiac exam, Rhythm is regular.. No murmurs, rubs or gallops. Abdominal exam reveals normal bowel sounds, soft non tender, no masses Extremities are nonedematous and both pedal pulses are normal. Neurologic exam is alert and oriented, no focal loss of strength or sensation Skin is without bruises or rashes Psychologically is without concerns for anxiety or depression. Discharge Data Allergies Allergy/AdvReac Type Severity Reaction Status Date / Time No Known Allergies Allergy Verified 06/19/20 16:18 Consultations 06/19/20 16:35 ED Decision to Admit Stat Hospital Course (1) Sepsis: Secondary to COVID-19 +/- multifocal bacterial pneumonia blood cultures - no growth Broad-spectrum antibiotics to cover bacterial pneumonia, completed 5 days course sepsis is resolved, no fever and vitals stable (2) Respiratory failure, acute: Has graduated to room air. BIPAP at night which he uses chronically for MARYCRUZ reinforced incentive spirometer (3) COVID-19: plan for Dexamethasone 10 days, received plasma on 06/20 Remdesivir completed on 06/23 Recommend isolation for 14 days after initial diagnosis (4) Multifocal pneumonia: suspect possible reason for acute worsening is a bacterial pneumonia on top of COVID-19. completed treatment with broad spectrum antibiotics cefepime and azithromycin WBC is normal, no fever, minimal cough, completed 5 days of antibiotics (5) DM type 2 (diabetes mellitus, type 2): HbA1C 8.1 [06/16/20] Consult pharmacy for glycemic control transitioned to sulfonylurea and m etformin, likely may not need sulfonylurea once Decadron will be stopped (6) Acne: consider resuming antibiotics on discharge Total Time Total Time Spent Total Time Spent (In Minutes): It required greater than 30 minutes to prepare this patient for discharge Discharge Plan Discharge Items Patient Disposition: Home - Self-Care Reason For Visit: ACUTE HYPOXIC RESP FAIL,COVID,MULTIFOCAL PNEUMONIA Discharge Diagnosis: covid -19 pneumonia Activity: Per Instructions section Activity Comment: 14 days isolation from initial diagnosis Non-emergency contact: Primary Care Provider Call non-emergency contact if: your symptoms worsen Follow-up/Referrals: PCP,NO [Primary Care Provider] - Diet: Carb Consistent or DM2 Addtl Attending Provider Instructions: please take glimeparide while on dexamethasone and for one additional day, then only take your metformin Home Isolation COVID-19 Instructions The following information about Home Isolation is from the CDC Website: https://www.cdc.gov/coronavirus/2019-ncov/hcp/wjzcqszc-nkizabv-ndxgcq.html Stay home except to get medical care People who are mildly ill with COVID-19 are able to isolate at home during their illness. You should restrict activities outside your home, except for getting medical care. Do not go to work, school, or public areas. Avoid using public transportation, ride-sharing, or taxis. Separate yourself from other people and animals in your home People: As much as possible, you should stay in a specific room and away from other people in your home. Also, you should use a separate bathroom, if available. Animals: You should restrict contact with pets and other animals while you are sick with COVID-19, just like you would around other people. Although there have not been reports of pets or other animals becoming sick with COVID-19, it is still recommended that people sick with COVID-19 limit contact with animals until more information is known about the virus. When possible, have another member of your household care for your animals while you are sick. If you are sick with COVID-19, avoid contact with your pet, including petting, snuggling, being kissed or licked, and sharing food. If you must care for your pet or be around animals while you are sick, wash your hands before and after you interact with pets and wear a face mask. Call ahead before visiting your doctor If you have a medical appointment, call the healthcare provider and tell them that you have or may have COVID-19. This will help the healthcare providers office take steps to keep other people from getting infected or exposed. Wear a face mask You should wear a face mask when you are around other people (e.g., sharing a room or vehicle) or pets and before you enter a healthcare providers office. If you are not able to wear a face mask (for example, because it causes trouble breathing), then people who live with you should not stay in the same room with you, or they should wear a face mask if they enter your room. Cover your coughs and sneezes Cover your mouth and nose with a tissue when you cough or sneeze. Throw used tissues in a lined trash can. Immediately wash your hands with soap and water for at least 20 seconds or, if soap and water are not available, clean your hands with an alcohol-based hand manager of internal audit that contains at least 60% alcohol. Clean your hands often Wash your hands often with soap and water for at least 20 seconds, especially after blowing your nose, coughing, or sneezing; going to the bathroom; and before eating or preparing food. If soap and water are not readily available, use an alcohol-based hand manager of internal audit with at least 60% alcohol, covering all surfaces of your hands and rubbing them together until they feel dry. Soap and water are the best option if hands are visibly dirty. Avoid touching your eyes, nose, and mouth with unwashed hands. Avoid sharing personal household items You should not share dishes, drinking glasses, cups, eating utensils, towels, or bedding with other people or pets in your home. After using these items, they should be washed thoroughly with soap and water. Clean all high-touch surfaces everyday High touch surfaces include counters, tabletops, doorknobs, bathroom fixtures, toilets, phones, keyboards, tablets, and bedside tables. Also, clean any surfaces that may have blood, stool, or body fluids on them. Use a household cleaning spray or wipe, according to the label instructions. Labels contain instructions for safe and effective use of the cleaning product including precautions you should take when applying the product, such as wearing gloves and making sure you have good ventilation during use of the product. Monitor your symptoms Seek prompt medical attention if your illness is worsening (e.g., difficulty breathing).Beforeseeking care, call your healthcare provider and tell them that you have, or are being evaluated for, COVID-19. Put on a face mask before you enter the facility. These steps will help the healthcare providers office to keep other people in the office or waiting room from getting infected or exposed. Ask your healthcare provider to call the local or state health department. Persons who are placed under active monitoring or facilitated self- monitoring should follow instructions provided by their local health department or occupational health professionals, as appropriate. When working with your local health department check their available hours. If you have a medical emergency and need to call 911, notify the dispatch personnel that you have, or are being evaluated for COVID-19. If possible, put on a face mask before emergency medical services arrive. Discontinuing home isolation Patients with confirmed COVID-19 should remain under home isolation precautions until the risk of secondary transmission to others is thought to be low. The decision to discontinue home isolation precautions should be made on a [id number] basis, in consultation with healthcare providers and state and local health departments. Pending Studies at Discharge: No Stand-Alone Forms: My [facility], Smoking Cessation Medications and DC Order Prescriptions: New glimepiride [Amaryl] 2 mg Tablet 2 mg PO QDB Qty: 5 RF: 0 dexamethasone [Decadron] 6 mg tablet 6 mg PO DAILY Qty: 4 RF: 0 Continued atorvastatin 10 mg Tablet 10 mg PO DAILY RF: 0 doxycycline monohydrate 100 mg Tablet 100 mg PO BID RF: 0 clindamycin phosphate 1 % Gel 1 applic TOPICAL BID PRN (Reason: flareups) RF: 0 metformin 1,000 mg Tablet 1,000 mg PO BIDM RF: 0 lisinopril 10 mg Tablet 10 mg PO DAILY RF: 0 Discontinued pseudoephedrine-guaifenesin [Mucinex D Maximum Strength] 120-1,200 mg Tablet Extended Release 12 Hr 1 tab PO UD PRN (Reason: Congestion) RF: 0 Discharge Orders: Discharge Order (Routine); Ordered 06/26/20 Ordered By: Duong Olivera Admission Data Admit Date/Time: 06/19/20 17:40 Attending Provider: Duong Olivera Admit Provider: Jay Soto Primary Care Provider: PCP,NO Other Providers: Jay Soto Other Interventions: Discharge Summary Assessment (RN) Last Done: 06/26/20 11:08 Coding Level of Care Code D/C Day Management >30 mins Diagnoses Sepsis A41.9 Respiratory failure, acute J96.01 Respiratory failure complication: hypoxia COVID-19 U07.1 Multifocal pneumonia J18.9 DM type 2 (diabetes mellitus, type 2) E11.9 Acne L70.9
== END 2020-06-26 11:25 | disposition home or self-care (01) | DRG 871 ==
LOC: ED 14:13 → 2E 17:40 → SUATTDRO 17:40 → 2E 21:41